=== PATIENT | female | born 1985 | race African-American/Black ===

== ENCOUNTER 2018-01-05 08:49 | Emergency (ER) | payer OTHER ==
[~2018-01-05] VITALS: Ht 170.2 cm; Wt 114.3 kg
[~2018-01-05 08:49] MED LIST: ATIVAN2 MG PO; BENZTROPINE MESY2 MG PO; CLOTRIMAZOLE15 GM TOP; Cleocin TOP; DEPAKOTE ER500 MG PO; DOC Q LACE PO; GEODON80 MG PO; KLONOPIN1 MG PO; RISPERDAL2 MG PO; TRINESSA PO
--- NOTE | 2018-01-05 08:56 | Emergency Room Report ---
History of Present Illness General Chief Complaint: To Be Triaged Source: Patient, Friend Present Illness HPI 32-year-old female presents with caregiver with left-sided chest pain and palpitations since this morning. Caregiver states patient complained of chest pain and she put her hand on her chest and felt the heart beating. Pain worse with movement, palpation. No recent URI symptoms. Pain not improved with sitting forward/laying down. No recent surgery, immobilization. Patient still complaining of chest pain right now, however mostly concerning is that she feels her heart beating fast. Denies associated shortness of breath, nausea, vomiting. History of developmental delay, psychoses, anxiety, hypertension due to renal disease. No history of diabetes or heart attack or CAD known. On oral control. Allergies: Coded Allergies: PENICILLINS (Verified Allergy, Intermediate, SNEEZING, 11/09/12) Patient History Past Medical History: other - See history of present illness Past Surgical History: none Pertinent Family History: none Social History: Denies: smoking, alcohol use, drug use Now: No Immunizations: UTD Reviewed Nursing Documentation: PMH: Agreed, PSxH: Agreed Review of Systems All Other Systems: negative except mentioned in HPI Physical Exam Sp02 EP Interpretation: reviewed, normal General Appearance: normal inspection, well appearing, no apparent distress, alert, GCS 15, non-toxic Head: normocephalic, atraumatic Eyes: bilateral eye PERRL, bilateral eye EOMI ENT: normal ENT inspection, hearing grossly normal, normal pharynx, no angioedema, normal voice, TMs + canals normal, uvula midline, moist mucus membranes Neck: normal inspection, full range of motion, supple, thyroid normal, no meningismus, no bony tend Respiratory: normal inspection, lungs clear, normal breath sounds, no rhonchi, no respiratory distress, no retraction, no accessory muscle use, no wheezing, speaking full sentences Cardiovascular #1: regular rate, rhythm, no edema, no JVD, normal capillary refill Gastrointestinal: normal inspection, normal bowel sounds, non tender, soft, no mass, no peritonitis, non-distended, no guarding, no hernia, no pulsatile mass Genitourinary: no CVA tenderness Musculoskeletal: normal inspection, back normal, normal range of motion, no calf tenderness, pelvis stable, Govind's Sign negative Neurologic: normal inspection, alert, oriented x3, responsive, corporate sales trainer III-XII nml as tested, motor strength/tone normal, cerebellar normal, normal gait, speech normal Psychiatric: normal inspection, judgement/insight normal, mood/affect normal, no suicidal/homicidal ideation, no delusions Skin: normal inspection, normal color, no rash Lymphatic: normal inspection, no adenopathy Medical Decision Making Diagnostic Impression: Primary Impression: Palpitations ER Course Differential includes ACS, PE, MSK pain, palpitations,arrhythmia ECG is nonischemic, QTC is normal. No WPW. No right heart strain or S1Q3T3 pattern Patient is on control however, low suspicion for PE given not tachycardic , not hypoxic, normal vital signs, no right heart strain on EKG no recent immobilization or surgery. I doubt pericarditis given normal EKG, no change with sitting up or laying down , no audible murmur or pericardial rub on exam, no recent URI symptoms. Pain is likely musculoskeletal given very reproducible, worse with movement. Pain improved with NSAIDs Reassured patient and caregiver ER course: Patient has remained stable during ED stay. Disposition: Patient is to be discharged to home. Patient is instructed to follow up with their primary care doctor within 5 days. Strict return precautions discussed with patient such as fever, chills, worsening/severe pain, nausea, vomiting, which may indicate severe illness. Patient verbalizes understanding and agrees with plan. Please note that this Emergency Department Report was dictated using [employer] Jobsdeputy director of finance technology software, occasionally this can lead to erroneous entry secondary to interpretation by the dictation equipment EKG Diagnostic Results Rate: normal Rhythm: NSR ST Segments: no acute changes ASA given to the pt in ED: No Status: improved Disposition: HOME, SELF-CARE SHEILA HAYS M.D. Jan 05, 2018 08:56
[2018-01-05 09:03] VITALS: BP 122/77
--- NOTE | 2018-01-10 18:56 | Cardiology Report ---
APPROVED REPORT EKG Measurement Heart [id number] Normal sinus rhythm Low voltage QRS Nonspecific ST abnormality Abnormal ECG
== END 2018-01-05 09:41 | disposition home or self-care (01) ==
LOC: EMR 09:15
DX: R00.2 Palpitations (principal); R07.9 Chest pain, unspecified; Z88.0 Allergy status to penicillin
CPT/HCPCS: 93005; 99283

== ENCOUNTER 2019-01-24 12:59 | Emergency (ER) | payer OTHER ==
[~2019-01-24] VITALS: Ht 170.2 cm; Wt 111.1 kg
[2019-01-24] MEDS ORDERED: DOCUSATE SODIU100 MG ORAL (13:10)
[2019-01-24] MEDS ORDERED: OLANZAPINE20 MG ORAL (13:10)
--- NOTE | 2019-01-24 13:40 | NUR ---
ED Nurse Note: PT WALKED IN TO ER TODAY FROM [facility] ACCOMPANIED BY FACILITY STAFF. PT AOX3 - NOT ORIENTED TO TIME BUT ORIENTED TO SELF, PLACE, AND SITUATION WHICH IS BASELINE PER FACILITY STAFF. PT C/O 2 PAINFUL SORES ON LIPS THAT FORMED X 5 DAYS AGO, PAIN 10/10. PT PRESENTS WITH ONE SORE TO LEFT CORNER OF MOUTH AND ONE SORE TO RIGHT SIDE OF UPPER LIP. FACILITY STAFF STATES THEY STARTED ABREVA X YESTERDAY.
[2019-01-24 13:43] VITALS: BP 116/76
--- NOTE | 2019-01-24 14:11 | Emergency Room Report ---
History of Present Illness General Chief Complaint: General Complaint Source: Patient Present Illness HPI 33 YO Female presents to the emergency department complaining of 10 out of 10 in severity tender lesions to the outer lip 3 days. Patient is recovering from recent upper respiratory illness denies fevers or chills denies history of herpes denies history of immunocompromise. Pt. denies fevers, chills or swollen tender lymph nodes. Denies lesions/rashes elsewhere on the body. Denies new medications or body washes or creams. Denies swelling of the lips, tongue , throat or airway. Denies wheezing, or shortness of breath. Denies recent travel, recent illness or ill contacts. denies blisters, oral lesions, or sloughing of the skin Allergies: Coded Allergies: PENICILLINS (Verified Allergy, Intermediate, SNEEZING, 11/09/12) Patient History Past Medical History: see triage record Past Surgical History: none Pertinent Family History: none Reviewed Nursing Documentation: PMH: Agreed; PSxH: Agreed Nursing Documentation-PMH Hx Hypertension: Yes Review of Systems All Other Systems: negative except mentioned in HPI Physical Exam Vital Signs Date Time Temp Pulse Resp B/P (MAP) Pulse Ox O2 Delivery O2 Flow Rate FiO2 01/24/19 13:05 98.4 100 22 104/71 95 Room Air Sp02 EP Interpretation: reviewed, normal General Appearance: no apparent distress, alert, GCS 15, non-toxic Head: normocephalic, atraumatic Eyes: bilateral eye normal inspection, bilateral eye PERRL ENT: hearing grossly normal, normal voice, TMs + canals normal, uvula midline, moist mucus membranes, other - two scabbed cold sores on the upper outer lip, no blisters or vessicles. no swelling of the lips or tongue. Neck: full range of motion Respiratory: chest non-tender, lungs clear, normal breath sounds, no wheezing, speaking full sentences Cardiovascular #1: regular rate, rhythm Musculoskeletal: back normal, gait/station normal, normal range of motion, non- tender Neurologic: alert, oriented x3, responsive, motor strength/tone normal, sensory intact, speech normal, grossly normal Psychiatric: judgement/insight normal Skin: normal color, no rash, warm/dry, well hydrated Lymphatic: no adenopathy Medical Decision Making PA Attestation Dr. kwon is my supervising Physician whom patient management has been discussed with. Diagnostic Impression: Primary Impression: Cold sore ER Course 33 YO Female presents to the emergency department complaining of 10 out of 10 in severity tender lesions to the outer lip 3 days. Patient is recovering from recent upper respiratory illness denies fevers or chills denies history of herpes denies history of immunocompromise. Pt. denies fevers, chills or swollen tender lymph nodes. Denies lesions/rashes elsewhere on the body. Denies new medications or body washes or creams. Denies swelling of the lips, tongue , throat or airway. Denies wheezing, or shortness of breath. Denies recent travel, recent illness or ill contacts. denies blisters, oral lesions, or sloughing of the skin Ddx considered but are not limited to cellulitis, scabies, shingles, varicella, dermatitis, urticaria, eczema, tinea, viral exanthem, SJS Vital signs: are WNL, pt. is afebrile H&PE are most consistent with viral cold sores ORDERS: none required at this time, the diagnosis is clinical ED INTERVENTIONS: None required at this time. DISCHARGE: At this time pt. is stable for d/c to home. Will provide printed patient care instructions, and any necessary prescriptions. Care plan and follow up instructions have been discussed with the patient prior to discharge. Last Vital Signs Date Time Temp Pulse Resp B/P (MAP) Pulse Ox O2 Delivery O2 Flow Rate FiO2 01/24/19 13:43 92 20 Room Air 01/24/19 13:43 98.2 116/76 98 Disposition: HOME, SELF-CARE Condition: Stable Patient Instructions: Cold Sore, [id number] Additional Instructions: Take medications as directed. Follow up with a Primary Care Provider in 3-5 days, even if your symptoms have resolved. --Please review list of primary care clinics, if you do not already have a primary care provider Return sooner to ED if new symptoms occur, or current symptoms become worse. - Please note that this Emergency Department Report was dictated using [employer] truck driver technology software, occasionally this can lead to erroneous entry secondary to interpretation by the dictation equipment. Rose Oreilly Jan 24, 2019 14:11
[2019-01-24] MEDS ORDERED: ACYCLOVIR400 MG ORAL (14:12)
[2019-01-24] MEDS ORDERED: MUPIROCIN22 GM TOPIC (14:12)
--- NOTE | 2019-01-24 14:21 | NUR ---
ED Nurse Note: PT SITTING PEACEFULLY IN BED IN NAD. AOX3. GUARDIAN AT BEDSIDE. PRESCRIPTIONS AND DISCHARGE PAPERWORK EXPLAINED TO GUARDIAN WHO VERBALIZES UNDERSTANDING. ALL QUESTIONS ANSWERED. PRESCRIPTIONS AND DISCHARGE PAPERWORK GIVEN TO GUARDIAN AND ID WRISTBAND REMOVED FROM PT. PT WALKED OUT OF ER WITH STEADY GAIT AND ALL BELONGINGS ACCOMPANIED BY GUARDIAN.
[2019-01-24 14:22] VITALS: BP 114/82
== END 2019-01-24 14:23 | disposition home or self-care (01) ==
LOC: EMR 13:45
DX: B00.1 Herpesviral vesicular dermatitis (principal); Z88.0 Allergy status to penicillin; I10 Essential (primary) hypertension
CPT/HCPCS: 99282

== ENCOUNTER 2019-02-11 10:03 | Emergency (ER) | payer OTHER ==
[~2019-02-11] VITALS: Ht 170.2 cm; Wt 114.3 kg
[~2019-02-11 10:03] MED LIST changes: +ACYCLOVIR400 MG ORAL; +DOCUSATE SODIU100 MG ORAL; +MUPIROCIN22 GM TOPIC; +OLANZAPINE20 MG ORAL
[2019-02-11 10:09] VITALS: BP 103/75
--- NOTE | 2019-02-11 10:15 | NUR ---
ED Nurse Note: Patient brought in by her caregiver due to rash on the bilateral hand ventral side started this morning. caregiver said she noticed rash on the left feet as well. patient is alert awake ambulatory, breathing even and unlabored.
[2019-02-11] MEDS ORDERED: CALAMINE LOTIO177 ML TP (10:27)
--- NOTE | 2019-02-11 10:29 | Emergency Room Report ---
History of Present Illness General Chief Complaint: Skin Rash/Abscess Source: Patient, Caregiver Present Illness HPI Patient persist with caregiver with reports of rash that has developed on the hands and feet This was noticed earlier today patient also reports that the areas are fairly itchy in nature Denies any fevers or chills denies any chest pain or shortness of breath denies any other oral lesions however patient appears to have been here recently with possible herpetic lesions Denies any other rash in the upper chest or back denies any recent travel Allergies: Coded Allergies: PENICILLINS (Verified Allergy, Intermediate, SNEEZING, 11/09/12) Patient History Past Medical History: see triage record Pertinent Family History: none Last Menstrual Period: Unable to state Now: No Reviewed Nursing Documentation: PMH: Agreed; PSxH: Agreed Nursing Documentation-PMH Past Medical History: No History, Except For Hx Hypertension: Yes Review of Systems All Other Systems: negative except mentioned in HPI Physical Exam Vital Signs Date Time Temp Pulse Resp B/P (MAP) Pulse Ox O2 Delivery O2 Flow Rate FiO2 02/11/19 10:09 98.6 97 18 103/75 95 Room Air Sp02 EP Interpretation: reviewed, normal General Appearance: well appearing, no apparent distress Head: normocephalic, atraumatic Eyes: bilateral eye PERRL, bilateral eye EOMI ENT: normal pharynx Neck: supple Respiratory: lungs clear, no retraction, no accessory muscle use Cardiovascular #1: regular rate, rhythm Gastrointestinal: non tender, soft Musculoskeletal: normal inspection Neurologic: alert, oriented x3 Skin: other - Erythematous circular rash involving the palms of both hands and palmar aspect of both feet no obvious target cell appearance no blister formation no sloughing of the skin Lymphatic: no adenopathy Medical Decision Making Diagnostic Impression: Primary Impression: Rash and other nonspecific skin eruption Additional Impression: hand foot mouth disease ER Course Patient's clinical exam and history is consistent with knbm-gwmg-sas-mouth disease Patient does not appear septic or toxic and will have initial conservative outpatient trial Last Vital Signs Date Time Temp Pulse Resp B/P (MAP) Pulse Ox O2 Delivery O2 Flow Rate FiO2 02/11/19 10:09 98.6 97 18 103/75 95 Room Air Status: unchanged Disposition: HOME, SELF-CARE Condition: Stable Scripts Calamine/Zinc Oxide (CALAMINE LOTION*) 177 Ml Suspension 1 APPLIC TP BID for 5 Days, ML 0 Refills Prov: Israel Benites DO 02/11/19 Patient Instructions: Rash, Hand, Foot, and Mouth Disease, Pediatric, Easy-to- Read Additional Instructions: Patient is provided with the discharge instructions notified to follow up with primary doctor in the next 2-3 days otherwise return to the er with any worsening symptoms. Please note that this report is being documented using [employer] technology. This can lead to erroneous entry secondary to incorrect interpretation by the dictating instrument. Israel Benites DO Feb 11, 2019 10:29
[2019-02-11 10:45] VITALS: BP 103/75
--- NOTE | 2019-02-11 10:45 | NUR ---
ER DISCHARGE NOTE: Patient is cleared to be discharged per ERMD, pt is aox4, on room air, with stable vital signs. pt was given dc and prescription instructions, pt was able to verbalize understanding, pt id band removed without complications. pt is able to ambulate with steady gait escorted by her caregiver. pt took all belongings.
== END 2019-02-11 10:45 | disposition home or self-care (01) ==
LOC: EMR 10:40
DX: R21 Rash and other nonspecific skin eruption (principal); B08.4 Enteroviral vesicular stomatitis with exanthem; Z88.0 Allergy status to penicillin; I10 Essential (primary) hypertension
CPT/HCPCS: 99282

== ENCOUNTER 2019-03-26 08:39 | Emergency (ER) | payer OTHER ==
[~2019-03-26] VITALS: Ht 170.2 cm; Wt 108.0 kg
[~2019-03-26 08:39] MED LIST changes: +CALAMINE LOTIO177 ML TP
[2019-03-26 08:58] VITALS: BP 131/89
--- NOTE | 2019-03-26 08:59 | NUR ---
ED Nurse Note: pt from a residential facility fell off of her bed last night c/o rt shoulder pain . Facility staff at bedside. pt awaiting x-rays.
--- NOTE | 2019-03-26 09:03 | NUR ---
ED Nurse Note: pt down to imaging
--- NOTE | 2019-03-26 09:32 | Diagnostic Imaging Report ---
Indication: left shoulder pain Findings: 3 views of the left shoulder were obtained. Alignment of the left shoulder is normal. No acute fracture is identified. Soft tissues are unremarkable. Impression: No acute injury
[2019-03-26] MEDS ORDERED: TYLENOL EXTRA500 MG ORAL (09:33)
[2019-03-26 09:52] VITALS: BP 131/89
--- NOTE | 2019-03-26 09:54 | NUR ---
ED Nurse Note: Pt cleared by health care Provider for discharge. DC instructions/prescription was given and explained to pt and verbalized understanding of teachings. All medical deviecs such as ID band removed. Pt is AAO x4, ambulatory with the staff from the facility she came from and left with all personal belongings.
--- NOTE | 2019-03-26 09:56 | Emergency Room Report ---
History of Present Illness General Chief Complaint: Pain Source: Patient Present Illness HPI 33-year-old female presents ED for evaluation. Brought in by animal caretaker for left shoulder pain. States she fell and landed on her left shoulder last night. Denies hitting her head or any other injuries. Notes pain to her left shoulder only. Pain is dull, 6 out of 10, nonradiating. No other aggravating relieving factors. Denies any other associated symptoms Allergies: Coded Allergies: PENICILLINS (Verified Allergy, Intermediate, SNEEZING, 03/26/19) Patient History Past Medical History: HTN, psych hx Past Surgical History: none Pertinent Family History: none Social History: Denies: smoking, alcohol use, drug use Last Menstrual Period: February 2019 Now: No Immunizations: UTD Reviewed Nursing Documentation: PMH: Agreed; PSxH: Agreed Nursing Documentation-PMH Past Medical History: No History, Except For Hx Hypertension: Yes Review of Systems All Other Systems: negative except mentioned in HPI Physical Exam Vital Signs Date Time Temp Pulse Resp B/P (MAP) Pulse Ox O2 Delivery O2 Flow Rate FiO2 03/26/19 08:43 98.1 95 16 131/89 (103) 97 Room Air Sp02 EP Interpretation: reviewed, normal General Appearance: no apparent distress, alert, GCS 15, non-toxic Head: normocephalic, atraumatic Eyes: bilateral eye normal inspection, bilateral eye PERRL ENT: hearing grossly normal, normal pharynx, no angioedema, normal voice Neck: full range of motion, supple/symm/no masses Respiratory: chest non-tender, lungs clear, normal breath sounds, speaking full sentences Cardiovascular #1: regular rate, rhythm, no edema Cardiovascular #2: 2+ carotid (R), 2+ carotid (L), 2+ radial (R), 2+ radial (L) , 2+ dorsalis pedis (R), 2+ dorsalis pedis (L) Gastrointestinal: normal bowel sounds, non tender, soft, non-distended, no guarding, no rebound Rectal: deferred Genitourinary: normal inspection, no CVA tenderness Musculoskeletal: back normal, gait/station normal, normal range of motion, tender - L shoulder Neurologic: alert, oriented x3, responsive, motor strength/tone normal, sensory intact, speech normal Psychiatric: judgement/insight normal, memory normal, mood/affect normal, no suicidal/homicidal ideation Reflexes: 3+ bicep (R), 3+ bicep (L), 3+ tricep (R), 3+ tricep (L), 3+ knee (R) , 3+ knee (L) Skin: normal color, no rash, warm/dry, well hydrated Lymphatic: no adenopathy Medical Decision Making Diagnostic Impression: Primary Impression: Shoulder contusion Qualified Codes: S40.012A - Contusion of left shoulder, initial encounter ER Course Hospital Course 33-year-old M presents to ED complaining of L shoulder pain s/p fall Differential diagnoses include: Fracture, dislocation, sprain, contusion Clinical course Patient placed on stretcher. After initial history and physical, I ordered xrays of L shoulder Xrays prelim read shows no acute fracture/dislocation. Because findings with patient and animal caretaker. Ice, modified activity. Safe for discharge for close outpatient follow-up. I will provide Ortho referrals Diagnosis - shoulder contusion Stable and discharged to home with prescription for tylenol. apply ice, keep elevated. weight bear as tolerated. Followup with PMD/ortho. Return to ED if symptoms recur or worsen Other X-Ray Diagnostic Results Other X-Ray Diagnostic Results : X-Ray ordered: L shoulder # of Views/Limited Vs Complete: 3 View Indication: Pain EP Interpretation: Yes Interpretation: no dislocation, no soft tissue swelling, no fractures Impression: No acute disease Electronically Signed by: Electronically signed by Kalpesh Nielsen MD Last Vital Signs Date Time Temp Pulse Resp B/P (MAP) Pulse Ox O2 Delivery O2 Flow Rate FiO2 03/26/19 08:58 98.1 16 131/89 97 Room Air 03/26/19 08:43 95 Status: improved Disposition: HOME, SELF-CARE Condition: Stable Scripts Acetaminophen* (TYLENOL EXTRA STRENGTH*) 500 Mg Tablet 500 MG ORAL Q8H PRN for Prn Headache/Temp > 101, #30 TAB 0 Refills Prov: Kalpesh Nielsen MD 03/26/19 Referrals: NON PHYSICIAN (PCP) [facility] Open 24 hour /7 days a week by Appointment Only [address] [facility] [address] [facility] [address] Patient Instructions: Shoulder Pain, [id number] Kalpesh Nielsen MD Mar 26, 2019 09:55
== END 2019-03-26 09:55 | disposition home or self-care (01) ==
LOC: EMR 08:52
DX: S40.012A Contusion of left shoulder, initial encounter (principal); W19.XXXA Unspecified fall, initial encounter; Y92.9 Unspecified place or not applicable; Z88.0 Allergy status to penicillin; I10 Essential (primary) hypertension
CPT/HCPCS: 99283

== ENCOUNTER 2020-11-21 09:27 | Inpatient (IN) | payer MEDICARE, OTHER ==
[2020-11-21] VITALS (11 sets, daily range): BP systolic 130–172; BP diastolic 55–92
[~2020-11-21] VITALS: Ht 172.7 cm; Wt 72.6 kg
[~2020-11-21 09:27] MED LIST changes: +TYLENOL EXTRA500 MG ORAL
[2020-11-21] MEDS ORDERED: LORazepam Inj 2mg/ml 1ml IV ONE ×3 (09:30→11:00)
--- NOTE | 2020-11-21 09:33 | Emergency Room Report ---
History of Present Illness General Chief Complaint: Seizure Source: EMS Present Illness HPI Disclaimer: Please note that this report is being documented using DRAGON technology. This can lead to erroneous entry secondary to incorrect interpretation by the dictating instrument. HPI: 35-year-old female history of seizure disorder and methamphetamine use presents by EMS from senior care after witnessed generalized tonic-clonic seizure. He had reports of witnessed generalized tonic-clonic seizure lasting several minutes while the patient was in bed. No head trauma reported. Patient arrives nonverbal with eyes deviated to the right and rhythmic beating of the right upper extremity. Cannot obtain any information from patient. No further information by EMS. Review of senior care documentation shows she takes Keppra and lorazepam. PMH: Seizure disorder, methamphetamine abuse PSH: Unable to obtain from patient Allergies: Amoxicillin and penicillins listed in medical chart Social Hx: Amphetamine use in medical chart Allergies: Coded Allergies: PENICILLINS (Verified Allergy, Intermediate, SNEEZING, 03/26/19) AMOXICILLIN (Unverified Allergy, Unknown, 11/21/20) Nursing Documentation-PMH Hx Hypertension: Yes Review of Systems All Other Systems: limited - Unable to obtain from patient Physical Exam General: Nonverbal. Protecting airway HEENT: NC/AT. Eyes deviated to the right with rhythmic beating. Cardiovascular: RRR. S1 and S2 normal. No murmur appreciated Resp: Normal work of breathing. No cough, wheezing or crackles appreciated Abdomen: Abdomen is soft, nondistended. Nontender Skin: Intact. No abrasions, laceration or rash over the exposed skin MSK: Normal tone and bulk. No obvious deformity. There is no drift in the upper or lower extremities bilaterally. Neuro: Postictal. Nonverbal response. Rhythmic beating of the right upper extremity. Eye deviation to the right. Symmetrical facial expressions. Procedures Critical Care Time Critical Care Time Total critical care time: Approximately 45 minutes Due to a high probability of clinically significant, life threatening deterioration, the patient required the highest level of preparedness to intervene emergently and I personally spent this critical care time directly and personally managing the patient. This critical care time included obtaining a history, examining the patient, pulse oximetry, ordering and reviewing studies, ordering treatments, evaluating response to treatment and updating management plan as needed, frequent reassessment and discussion with other providers as well as arranging for ultimate disposition. This critical to care time was performed to assess and manage the high probability of life-threatening deterioration that could result in multiorgan failure. This critical care time is separate from the separately billable procedures and treating other patients. Medical Decision Making Diagnostic Impression: Primary Impression: Seizure disorder Additional Impressions: Status epilepticus SVT (supraventricular tachycardia) ER Course 35-year-old female presents after witnessed seizure at nursing facility. Arrives nonverbal with eye deviation to the right. Glucose on arrival is 213. Stat CT head initiated along with broad labs and Ativan given. Patient loaded with Keppra. No obvious large bleed seen on CT. Patient had several brief generalized tonic-clonic seizures and apparent focal seizures on the right side. Dilantin given in addition to Ativan. EKG shows a narrow complex regular tachycardia in the 150s consistent with SVT. 2 doses of 12 mg adenosine given with no effect. Cardizem then given which improved heart rate. Patient admitted to SDU under her PMD, Dr. Avitia Laboratory Tests Test 11/21/20 09:35 11/21/20 11:50 White Blood Count 20.9 K/UL (4.8-10.8) H Red Blood Count 4.71 M/UL (4.20-5.40) Hemoglobin 13.5 G/DL (12.0-16.0) Hematocrit 42.9 % (37.0-47.0) Mean Corpuscular Volume 91 FL (80-99) Mean Corpuscular Hemoglobin 28.7 PG (27.0-31.0) Mean Corpuscular Hemoglobin Concent 31.6 G/DL (32.0-36.0) L Red Cell Distribution Width 13.7 % (11.6-14.8) Platelet Count 291 K/UL (150-450) Mean Platelet Volume 6.6 FL (6.5-10.1) Neutrophils (%) (Auto) % (45.0-75.0) Lymphocytes (%) (Auto) % (20.0-45.0) Monocytes (%) (Auto) % (1.0-10.0) Eosinophils (%) (Auto) % (0.0-3.0) Basophils (%) (Auto) % (0.0-2.0) Differential Total Cells Counted 100 Neutrophils % (Manual) 83 % (45-75) H Lymphocytes % (Manual) 9 % (20-45) L Monocytes % (Manual) 8 % (1-10) Eosinophils % (Manual) 0 % (0-3) Basophils % (Manual) 0 % (0-2) Band Neutrophils 0 % (0-8) Platelet Estimate Adequate Platelet Morphology Normal Red Blood Cell Morphology Hypochromasia 1+ Prothrombin Time 11.0 SEC (9.30-11.50) Prothrombin Time INR 1.0 (0.9-1.1) Activated Partial Thromboplast Time 27 SEC (23-33) Sodium Level 134 MMOL/L (136-145) L Potassium Level 4.5 MMOL/L (3.5-5.1) Chloride Level 96 MMOL/L (98-107) L Carbon Dioxide Level 23 MMOL/L (21-32) Anion Gap 15 mmol/L (5-15) Blood Urea Nitrogen 10 mg/dL (7-18) Creatinine 1.3 MG/DL (0.55-1.30) Estimated Glomerular Filtration Rate 56.2 mL/min (>60) Glucose Level 238 MG/DL (74-106) H Calcium Level 8.9 MG/DL (8.5-10.1) Phosphorus Level 3.2 MG/DL (2.5-4.9) Magnesium Level 1.5 MG/DL (1.8-2.4) L Total Bilirubin 0.6 MG/DL (0.2-1.0) Aspartate Amino Transferase (AST) 62 U/L (15-37) H Alanine Aminotransferase (ALT) 35 U/L (12-78) Alkaline Phosphatase 88 U/L (46-116) Troponin I 0.435 ng/mL (0.000-0.056) Total Protein 8.2 G/DL (6.4-8.2) Albumin 3.5 G/DL (3.4-5.0) Globulin 4.7 g/dL Albumin/Globulin Ratio 0.7 (1.0-2.7) L Acetaminophen Level < 2 MCG/ML (10-30) L Serum Alcohol < 3 mg/dL Urine Color Pale yellow Urine Appearance Clear Urine pH 7 (4.5-8.0) Urine Specific [place] 1.005 (1.005-1.035) Urine Protein 2+ (NEGATIVE) H Urine Glucose (UA) Negative (NEGATIVE) Urine Ketones Negative (NEGATIVE) Urine Blood 4+ (NEGATIVE) H Urine Nitrite Negative (NEGATIVE) Urine Bilirubin Negative (NEGATIVE) Urine Urobilinogen Normal MG/DL (0.0-1.0) Urine Leukocyte Esterase Negative (NEGATIVE) Urine RBC 2-4 /HPF (0 - 2) H Urine WBC 0-2 /HPF (0 - 2) Urine Squamous Epithelial Cells Occasional /LPF Urine Bacteria Occasional /HPF (NONE) Urine HCG, Qualitative Negative (NEGATIVE) Urine Opiates Screen Negative (NEGATIVE) Urine Barbiturates Screen Negative (NEGATIVE) Phencyclidine (PCP) Screen Negative (NEGATIVE) Urine Amphetamines Screen Negative (NEGATIVE) Urine Benzodiazepines Screen Negative (NEGATIVE) Urine Cocaine Screen Negative (NEGATIVE) Urine Marijuana (THC) Screen Negative (NEGATIVE) EKG Diagnostic Results Troponin ordered: Yes When was troponin ordered?: Nov 21, 2020 EKG Time: 10:05 Rate: tachycardiac Other Impression Narrow complex regular tachycardia to 150s consistent with SVT Rhythm Strip Diag. Results Rhythm Strip Time: 10:05 EP Interpretation: yes Rate: 150s Rhythm: other - SVT Disposition: ADMITTED INPATIENT Condition: Critical Donn Felton MD Nov 21, 2020 09:33
[2020-11-21] MEDS ORDERED: levETIRAcetam 1,000mg/NS100ml 100 ML IVPB ONE (09:45)
[2020-11-21 09:54] LABS: HEMATOCRIT 42.9 % (37.0-47.0); HEMOGLOBIN 13.5 G/DL (12.0-16.0); MEAN CORPUSCULAR VOLUME 91 FL (80-99); PLATELET COUNT 291 K/UL (150-450); RED BLOOD COUNT 4.71 M/UL (4.20-5.40); RED CELL DISTRIBUTION WIDTH 13.7 % (11.6-14.8); WHITE BLOOD COUNT 20.9 K/UL (4.8-10.8)
[2020-11-21 10:13] LABS: ANION GAP 15 mmol/L (5-15); BLOOD UREA NITROGEN 10 mg/dL (7-18); CALCIUM 8.9 MG/DL (8.5-10.1); CARBON DIOXIDE 23 MMOL/L (21-32); CHLORIDE 96 MMOL/L (98-107); CREATININE 1.3 MG/DL (0.55-1.30); POTASSIUM 4.5 MMOL/L (3.5-5.1); SODIUM 134 MMOL/L (136-145)
[2020-11-21] MEDS ORDERED: Adenosine 6mg/2ml Inj ONE (10:14)
[2020-11-21] MEDS ORDERED: Phenytoin 1,000 MG in NS 275 ML IV ONE (10:15)
[2020-11-21] MEDS ORDERED: Adenosine 6mg/2ml Inj IVP ONE ×2 (10:15→11:00)
[2020-11-21 10:23] LABS: ALANINE AMINOTRANSFERASE 35 U/L (12-78); ALBUMIN 3.5 G/DL (3.4-5.0); ALBUMIN/GLOBULIN RATIO 0.7 (1.0-2.7); ALKALINE PHOSPHATASE 88 U/L (46-116); ASPARTATE AMINO TRANSFERASE 62 U/L (15-37); BILIRUBIN,TOTAL 0.6 MG/DL (0.2-1.0)
[2020-11-21] MEDS ORDERED: dilTIAZem HCl 25mg/5ml Inj IVP ONE (10:30)
[2020-11-21 10:37] LABS: PHOSPHORUS 3.2 MG/DL (2.5-4.9)
--- NOTE | 2020-11-21 10:43 | Diagnostic Imaging Report ---
Indications: Seizure Technique: Spiral acquisitions obtained through the brain. Angled axial and coronal 5 x 5 mm slices were reconstructed. Total dose length product 2197 mGycm. CTDI vol(s) 53 x 2 mGy. Dose reduction achieved using automated exposure control Comparison: None. Findings: No acute intracranial hemorrhage or edema, mass effect, nor midline shift. Normal [place]-white differentiation. There is abnormal configuration of the posterior lateral ventricles. These appear more normal anteriorly. Size of the ventricles and extra axial CSF spaces. Visualized orbits and sinuses are unremarkable. The mastoids are clear. The calvarium is intact. 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 is accredited by the [employer] and the scans are performed using protocols designed to limit radiation exposure to as low as reasonably achievable to attain images of sufficient resolution adequate for diagnostic evaluation.
[2020-11-21 11:58] LABS: APPEARANCE,URINE CLEAR; BILIRUBIN, URINE NEGATIVE (NEGATIVE); COLOR,URINE PALE YELLOW; GLUCOSE, URINE (UA) NEGATIVE (NEGATIVE); KETONES,URINE NEGATIVE (NEGATIVE); LEUKOCYTE ESTERASE ,URINE NEGATIVE (NEGATIVE); NITRITE,URINE NEGATIVE (NEGATIVE); PH,URINE 7 (4.5-8.0); PROTEIN,URINE 2+ (NEGATIVE); UROBILINOGEN,URINE NORMAL MG/DL (0.0-1.0)
--- NOTE | 2020-11-21 12:38 | Cardiac Electrophysiology PN ---
Subjective Subjective [id number] Objective Last 24 Hour Vital Signs Date Time Temp Pulse Resp B/P (MAP) Pulse Ox O2 Delivery O2 Flow Rate FiO2 11/21/20 12:00 97.0 122 18 164/86 97 Room Air 11/21/20 11:30 97.0 125 20 154/92 97 11/21/20 11:15 98.0 132 17 172/74 96 Room Air 11/21/20 11:00 97.7 129 20 160/72 97 Room Air 11/21/20 10:53 155 32 175/89 100 11/21/20 10:53 160 11/21/20 10:45 97.0 152 22 132/69 99 Room Air 11/21/20 10:35 151 138/55 11/21/20 10:30 97.7 149 22 138/55 99 Room Air 11/21/20 10:19 161 11/21/20 10:15 97.0 156 22 130/72 98 Room Air 11/21/20 10:00 141 18 171/82 98 Room Air 11/21/20 09:45 140 30 Room Air 11/21/20 09:45 145 24 96 11/21/20 09:39 149 21 100 11/21/20 09:26 98.8 93 16 163/88 (113) 95 Room Air Laboratory Tests Test 11/21/20 09:35 11/21/20 11:50 White Blood Count 20.9 K/UL (4.8-10.8) H Red Blood Count 4.71 M/UL (4.20-5.40) Hemoglobin 13.5 G/DL (12.0-16.0) Hematocrit 42.9 % (37.0-47.0) Mean Corpuscular Volume 91 FL (80-99) Mean Corpuscular Hemoglobin 28.7 PG (27.0-31.0) Mean Corpuscular Hemoglobin Concent 31.6 G/DL (32.0-36.0) L Red Cell Distribution Width 13.7 % (11.6-14.8) Platelet Count 291 K/UL (150-450) Mean Platelet Volume 6.6 FL (6.5-10.1) Neutrophils (%) (Auto) % (45.0-75.0) Lymphocytes (%) (Auto) % (20.0-45.0) Monocytes (%) (Auto) % (1.0-10.0) Eosinophils (%) (Auto) % (0.0-3.0) Basophils (%) (Auto) % (0.0-2.0) Differential Total Cells Counted 100 Neutrophils % (Manual) 83 % (45-75) H Lymphocytes % (Manual) 9 % (20-45) L Monocytes % (Manual) 8 % (1-10) Eosinophils % (Manual) 0 % (0-3) Basophils % (Manual) 0 % (0-2) Band Neutrophils 0 % (0-8) Platelet Estimate Adequate Platelet Morphology Normal Red Blood Cell Morphology Hypochromasia 1+ Prothrombin Time 11.0 SEC (9.30-11.50) Prothromb Time International Ratio 1.0 (0.9-1.1) Activated Partial Thromboplast Time 27 SEC (23-33) Sodium Level 134 MMOL/L (136-145) L Potassium Level 4.5 MMOL/L (3.5-5.1) Chloride Level 96 MMOL/L (98-107) L Carbon Dioxide Level 23 MMOL/L (21-32) Anion Gap 15 mmol/L (5-15) Blood Urea Nitrogen 10 mg/dL (7-18) Creatinine 1.3 MG/DL (0.55-1.30) Estimat Glomerular Filtration Rate 56.2 mL/min (>60) Glucose Level 238 MG/DL (74-106) H Calcium Level 8.9 MG/DL (8.5-10.1) Phosphorus Level 3.2 MG/DL (2.5-4.9) Magnesium Level 1.5 MG/DL (1.8-2.4) L Total Bilirubin 0.6 MG/DL (0.2-1.0) Aspartate Amino Transf (AST/SGOT) 62 U/L (15-37) H Alanine Aminotransferase (ALT/SGPT) 35 U/L (12-78) Alkaline Phosphatase 88 U/L (46-116) Troponin I 0.435 ng/mL (0.000-0.056) Total Protein 8.2 G/DL (6.4-8.2) Albumin 3.5 G/DL (3.4-5.0) Globulin 4.7 g/dL Albumin/Globulin Ratio 0.7 (1.0-2.7) L Acetaminophen Level < 2 MCG/ML (10-30) L Serum Alcohol < 3 mg/dL Urine Color Pale yellow Urine Appearance Clear Urine pH 7 (4.5-8.0) Urine Specific [place] 1.005 (1.005-1.035) Urine Protein 2+ (NEGATIVE) H Urine Glucose (UA) Negative (NEGATIVE) Urine Ketones Negative (NEGATIVE) Urine Blood 4+ (NEGATIVE) H Urine Nitrite Negative (NEGATIVE) Urine Bilirubin Negative (NEGATIVE) Urine Urobilinogen Normal MG/DL (0.0-1.0) Urine Leukocyte Esterase Negative (NEGATIVE) Urine RBC 2-4 /HPF (0 - 2) H Urine WBC 0-2 /HPF (0 - 2) Urine Squamous Epithelial Cells Occasional /LPF Urine Bacteria Occasional /HPF (NONE) Urine HCG, Qualitative Negative (NEGATIVE) Urine Opiates Screen Negative (NEGATIVE) Urine Barbiturates Screen Negative (NEGATIVE) Phencyclidine (PCP) Screen Negative (NEGATIVE) Urine Amphetamines Screen Negative (NEGATIVE) Urine Benzodiazepines Screen Negative (NEGATIVE) Urine Cocaine Screen Negative (NEGATIVE) Urine Marijuana (THC) Screen Negative (NEGATIVE) Carl Weber MD Nov 21, 2020 12:38
--- NOTE | 2020-11-21 13:41 | NUR ---
ED note Report given to Ethan MALDONADO
--- NOTE | 2020-11-21 13:46 | Diagnostic Imaging Report ---
Procedure: XRAY Chest 1v Reason for study: Shortness of breath. Comparison films: None. FINDINGS: Overlying patch noted over the cardiac shadow and left lung base. Vascularity is normal. The lung flaherty are clear bilaterally. Cardiac and mediastinal silhouette are within normal limits. CP angles are sharp. The bony thorax appear unremarkable. IMPRESSION: NO ACUTE CARDIOPULMONARY DISEASE.
[2020-11-21] MEDS ORDERED: HEPARIN SO5000 UNIT2 SUBQ (14:11)
[2020-11-21] MEDS ORDERED: LEVETIRACETAM500 MG ORAL (14:11)
[2020-11-21] MEDS ORDERED: LORAZEPAM2 MG/1 M1 IV (14:11)
--- NOTE | 2020-11-21 14:47 | Consultation ---
Consult Note Consult Note Neurology Consultation Date of Consultation: 11/21/2020 Soy MD: Dr. solano Reason For Referral; Seizure HPI: this is a 35-year-old AA female history of seizure disorder and methamphetamine use presents by EMS from shelter after witnessed generalized tonic-clonic seizure. He had reports of witnessed generalized angelica c-clonic seizure lasting several minutes while the patient was in bed. No head trauma reported. Cannot obtain any information from patient. Review of shelter documentation shows she takes Keppra and lorazepam. She is seen in the room brought in by ED staff, had a seizure in ED, she was transferred from [facility],, we will reviewe records and continue current treatment with seizure meds for now. PMH: Seizure disorder, methamphetamine abuse, schizophrenia PSH: Unable to obtain from patient Allergies: Amoxicillin and penicillins listed in medical chart Social Hx: Amphetamine use in medical chart ROS unable to assess Vitals Reviewed General: Patient is lying down Neuro: Alert to self oriented to self does not rememebr what happened Comprehension intact. Language parameters intact slow to respond. Crainial nervies II-XI were tested. PEERLA No nystagmus. Tongue is midline. Facial is symmetric. hearing intact Motor: No invountary movements, bilateral Upper extremities 4/5 Lower ex tremities 4/5. Sensation: intact Gait not tested Postictal LAB DATA: Reviewed Assessment and Rec's 1. Seizure, she is in post ictal phase responds slowly to questions --> continue keppra and ativan, CT Head reviewed --> will review records from [facility], further rec's to follow 2. Mehtamphetamine abuse 3. Obesty 4. Schizophrenia Lia Coburn NP Nov 21, 2020 14:47
--- NOTE | 2020-11-21 14:56 | Consultation ---
Consult Note Consult Note DATE OF CONSULTATION: 11/21/2020 CONSULTING PHYSICIAN: Ry Garrison MD. ATTENDING PHYSICIAN: Dr. Avitia REASON FOR CONSULTATION: tachycardia HISTORY OF PRESENT ILLNESS: This is a 35-year-old female with history of seizure disorder and methamphetamine use, who presented by EMS from long term after witnessed generalized tonic-clonic seizure. She was reported to be seizing several minutes while in bed. No head trauma was reported. Patient arrived nonverbal with eyes deviated to the right and rhythmic beating of the right upper extremity. Further history is unable to be obtained from the patient and much of the information was obtained from the ER note and her EMR. Her glucose on arrival was 213. Stat CT of head was negative for acute intracranial bleed or mass-effect. Chest x-ray did not show acute cardiopulmonary disease. Patient continues show multiple tonic-clonic seizures and apparent focal seizures on the right side. Dilantin was given in addition to Ativan. EKG showed a narrow complex regular tachycardia consistent with SVT. 2 doses of 12 mg adenosine were given with no effect. Cardizem was then given which improved her heart rate. Patient was seen in the ED, waiting for admissi on. PAST MEDICAL HISTORY: Seizure disorder, methamphetamine use MEDICATIONS: Acetaminophen, benztropine, clonazepam, clotrimazole, divalproex, docusate, heparin, levetiracetam, lorazepam, mupirocin, olanzapine, risperidone, ziprasidone ALLERGIES: Amoxicillin, penicillin FAMILY HISTORY: Unreliable PERSONAL/SOCIAL HISTORY: Unreliable REVIEW OF SYSTEMS: Unreliable PHYSICAL EXAMINATION: VITAL SIGNS: Blood pressure 164/86, heart rate is 122, respiratory rate 18, weight 73 kg, height 172 cm. HEENT: Head exam reveals that the head is normocephalic, atraumatic without deformity or unusual swelling. Pupils are PERRLA. CHEST AND LUNGS: Reveals clear, normal, symmetrical breath sounds with no adventitious sounds. CARDIOVASCULAR: Reveals normal S1, S2 without murmurs, rubs, or clicks. ABDOMEN: Soft with no tenderness or organomegaly. RECTAL: Deferred. MUSCULOSKELETAL: There is no tenderness to palpation. Range of motion is normal. NEUROLOGICAL: Alert and oriented x3 , nonfocal LABORATORY DATA: Laboratory testing shows WBC 20.9, otherwise unremarkable Chemistries show sodium 134, chloride 96, glucose 238, magnesium 1.5, troponin 0.435 Assessment/Plan 1. Hypertension - cardio following 2. Tachycardia -cardio following - will order venous duplex US to r/o DVT - check D-dimer 3. Leukocytosis - ID following 4. Elevated troponin -Serial troponin -Cardio following 5. Risk for aspiration secondary to seizure -Monitor for aspiration risk due to altered mental status - fu CXR if indicated -On empiric antibiotics 6. Monitor for hypoxemia The care for this patient was discussed with my supervising physician. Time spent for this case was approximately 31 minutes. Rich Sarabia Nov 21, 2020 14:56
--- NOTE | 2020-11-21 15:00 | NUR ---
NURSE NOTES: pt recieved in SDU with fever 101.7, hr 137 carlos 131/81 and mag. was not replaced in ED. Tylenol was given for fever. and EKG was done and sent to doctor Leidy. Neuro Lia/ [facility] was contacted for seizure meds. pt in stable condition AO x1, pt is not very verbal. Bed padded locked and in lowest position. Call light within reach.
--- NOTE | 2020-11-21 15:30 | NUR ---
NURSE NOTES: per doctor Adore, keep pt NPO, give 1/2 ns @ 60ml/hr and DC home meds. added multiple consults for pt. see consults.
[2020-11-21] MEDS: Acetaminophen 500mg (ES) tab ORAL PRN ×2 (16:12→21:06)
--- NOTE | 2020-11-21 17:20 | NUR ---
*-*DISCHARGE PLANNING*-* PATIENT HAS BEEN REFERRED TO: [facility] P: [phone]
--- NOTE | 2020-11-21 18:05 | NUR ---
NURSE NOTES: Called [facility], to ask about pt code status, they do not know pt code status. Called Mile Brock, which is the fitness and wellness manager of the [facility] where she lives, she states pt is full code. She will be faxing a list of medication she is currently taking at home.
--- NOTE | 2020-11-21 18:30 | NUR ---
NURSE NOTES: notified doctor Adore and [facility] about testing pt for covid. NO answer yet.
--- NOTE | 2020-11-21 19:28 | NUR ---
NURSE NOTES: Report received from JOEL Gale. Observed pt lying in the bed. ST noted with HR of 130. On room air, no sob noted. NPO at this time. IV on R H 20G, R FA 20G, L AC 20G, L W 20G noted. Bed in the lowest position. Side rails padded and up x3. Call light within reach. Will continue to monitor.
[2020-11-21] MEDS ORDERED: LORazepam Inj 2mg/ml 1ml IV PRN (19:45)
--- NOTE | 2020-11-21 20:02 | NUR ---
NURSE HAND-OFF REPORT: Important Events on Shift:[] pt has been having fever, contacted [facility] for covid test, waiting for order, rails are padded no seizures after coming to SDU Patient Status: []full Diet: []npo Pending Orders: [] Pending Results/Labs:[] Pending MD notification:[] Latest Vital Signs: Temperature 99.8 , Pulse 138 , B/P 162 /89 , Respiratory Rate 18 , O2 SAT 99 , Room Air, O2 Flow Rate . Vital Sign Comment: [] EKG Rhythm: Sinus Tachycardia Rhythm change?: N MD Notified?: - MD Response: Latest Cervantes Fall Score: 95 Fall Risk: High Risk Safety Measures: Call light Within Reach, Bed Alarm Zone 2, Side Rails Side Rails x2, Bed position Low and Locked. Fall Precautions: y Yellow Socks y Yellow Gown y Patient Fall Education y Report given to [].
[2020-11-21] MEDS: Magnesium Oxide 400mg tab ORAL SCH (21:04)
[2020-11-21] MEDS: levETIRAcetam 500mg/NS100ml 100 ML IVPB SCH (21:05)
[2020-11-21] MEDS: Atorvastatin 20mg tab ORAL SCH (21:05)
--- NOTE | 2020-11-21 22:56 | NUR ---
NURSE NOTES: pt lying in the bed, confused, noted pt speech delayed. . ST noted, HR of 110s. On room air with no sob, saturating at 96%. Will continue to monitor.
[2020-11-22] VITALS (7 sets, daily range): BP systolic 128–164; BP diastolic 77–94
--- NOTE | 2020-11-22 01:54 | NUR ---
NURSE NOTES: Pt sleeping at this time. ST noted with HR of 110s. No acute distress noted. No seizure activity noted. Bed alarm on. Will continue to monitor.
[2020-11-22] MEDS ORDERED: THIOTHIXENE2 MG ORAL (02:38)
[2020-11-22] MEDS ORDERED: AMLODIPINE BESYL5 MG ORAL (02:38)
[2020-11-22] MEDS ORDERED: BENZTROPINE MESY1 MG ORAL (02:38)
[2020-11-22] MEDS ORDERED: NORMODYNE100 MG ORAL (02:38)
[2020-11-22] MEDS ORDERED: OLANZAPINE20 MG ORAL (02:38)
--- NOTE | 2020-11-22 07:22 | NUR ---
NURSE HAND-OFF REPORT: Important Events on Shift: No acute distress noted. No SZ noted. Patient Status: VS stable Diet: NPO Pending Orders: [] Pending Results/Labs:[] Pending MD notification:[] Latest Vital Signs: Temperature 98.2 , Pulse 116 , B/P 147 /89 , Respiratory Rate 20 , O2 SAT 96 , Room Air, O2 Flow Rate . Vital Sign Comment: [] EKG Rhythm: Sinus Tachycardia Rhythm change?: N MD Notified?: - MD Response: Latest Ecrvantes Fall Score: 95 Fall Risk: High Risk Safety Measures: Call light Within Reach, Bed Alarm Zone 1, Side Rails Side Rails x3, Bed position Low and Locked. Fall Precautions: Yellow Socks Door Sign Patient Fall Education Report given to JOEL Greer.
--- NOTE | 2020-11-22 07:35 | NUR ---
NURSE NOTES: Received report from JOEL Mariano. Pt is lying in bed, awake, not in distress. Pt is complaining of generalized pain. Sinus Tachy on the paralegal specialist. Tolerating room air with 98% O2 saturation. NPO. Skin issues noted. R forearm 20G, L AC 20G, and L wrist 20G are intact and patent. Bed is locked and in lowest position, bed alarm on, call light is with the pt. Recent labs, medication, and MD orders reviewed. Will continue to monitor pt. Will continue with the plan of care.
[2020-11-22] MEDS: Aspirin Baby 81mg ORAL SCH (08:41)
[2020-11-22] MEDS: Magnesium Oxide 400mg tab ORAL SCH ×2 (08:41→17:39)
[2020-11-22] MEDS: levETIRAcetam 500mg/NS100ml 100 ML IVPB SCH ×2 (08:43→21:06)
--- NOTE | 2020-11-22 08:49 | Pulmonology Progress Note ---
Subjective ROS Limited/Unobtainable: Yes Interval Events: no seizure overnight Constitutional: Reports: no symptoms HEENT: Repors: no symptoms Respiratory: Reports: no symptoms Cardiovascular: Reports: no symptoms Gastrointestinal/Abdominal: Reports: no symptoms Allergies: Coded Allergies: PENICILLINS (Verified Allergy, Intermediate, SNEEZING, 03/26/19) AMOXICILLIN (Unverified Allergy, Unknown, 11/21/20) Objective Last 24 Hour Vital Signs Date Time Temp Pulse Resp B/P (MAP) Pulse Ox O2 Delivery O2 Flow Rate FiO2 11/22/20 08:42 112 134/86 11/22/20 04:00 98.2 115 20 147/89 (108) 96 11/22/20 04:00 116 11/22/20 04:00 Room Air 11/22/20 00:37 153/92 (112) 11/22/20 00:00 Room Air 11/22/20 00:00 109 11/22/20 00:00 98.4 114 20 164/94 (117) 98 11/21/20 21:36 99.0 11/21/20 21:04 131 150/90 11/21/20 20:00 99.9 131 20 150/90 (110) 97 11/21/20 20:00 Room Air 11/21/20 20:00 129 11/21/20 17:07 Room Air 11/21/20 16:42 99.8 11/21/20 15:38 138 11/21/20 14:49 98.3 136 18 162/89 99 Room Air 11/21/20 12:00 97.0 122 18 164/86 97 Room Air 11/21/20 11:30 97.0 125 20 154/92 97 11/21/20 11:15 98.0 132 17 172/74 96 Room Air 11/21/20 11:00 97.7 129 20 160/72 97 Room Air 11/21/20 10:53 155 32 175/89 100 11/21/20 10:53 160 11/21/20 10:45 97.0 152 22 132/69 99 Room Air 11/21/20 10:35 151 138/55 11/21/20 10:30 97.7 149 22 138/55 99 Room Air 11/21/20 10:19 161 11/21/20 10:15 97.0 156 22 130/72 98 Room Air 11/21/20 10:00 141 18 171/82 98 Room Air 11/21/20 09:45 140 30 Room Air 11/21/20 09:45 145 24 96 11/21/20 09:39 149 21 100 11/21/20 09:26 98.8 93 16 163/88 (113) 95 Room Air Intake and Output 11/21/20 11/22/20 19:00 07:00 Intake Total 60 ml 880 ml Balance 60 ml 880 ml Intake IV Total 60 ml 880 ml General Appearance: no acute distress HEENT: atraumatic Respiratory: lungs clear Cardiovascular: normal rate, regular rhythm Abdomen: soft, non tender Microbiology Date/Time Source Procedure Growth Status 11/21/20 14:00 Rectum Received Laboratory Tests 11/21/20 09:35: White Blood Count 20.9H, Red Blood Count 4.71, Hemoglobin 13.5, Hematocrit 42.9, Mean Corpuscular Volume 91, Mean Corpuscular Hemoglobin 28.7, Mean Corpuscular Hemoglobin Concent 31.6L, Red Cell Distribution Width 13.7, Platelet Count 291, Mean Platelet Volume 6.6, Neutrophils (%) (Auto) , Lymphocytes (%) (Auto) , Monocytes (%) (Auto) , Eosinophils (%) (Auto) , Basophils (%) (Auto) , Differential Total Cells Counted 100, Neutrophils % (Manual) 83H, Lymphocytes % (Manual) 9L, Monocytes % (Manual) 8, Eosinophils % (Manual) 0, Basophils % (Manual) 0, Band Neutrophils 0, Platelet Estimate Adequate, Platelet Morphology Normal, Red Blood Cell Morphology , Hypochromasia 1+, Prothrombin Time 11.0, Prothromb Time International Ratio 1.0, Activated Partial Thromboplast Time 27, Sodium Level 134L, Potassium Level 4.5, Chloride Level 96L, Carbon Dioxide Level 23, Anion Gap 15, Blood Urea Nitrogen 10, Creatinine 1.3, Estimat Glomerular Filtration Rate 56.2, Glucose Level 238H, Calcium Level 8.9, Phosphorus Level 3.2, Magnesium Level 1.5L, Total Bilirubin 0.6, Aspartate Amino Transf (AST/SGOT) 62H, Alanine Aminotransferase (ALT/SGPT) 35, Alkaline Phosphatase 88, Troponin I 0.435H, Total Protein 8.2, Albumin 3.5, Globulin 4.7, Albumin/Globulin Ratio 0.7L, Acetaminophen Level < 2L, Serum Alcohol < 3 11/21/20 11:50: Urine Color Pale yellow, Urine Appearance Clear, Urine pH 7, Urine Specific [place] 1.005, Urine Protein 2+H, Urine Glucose (UA) Negative, Urine Ketones Negative, Urine Blood 4+H, Urine Nitrite Negative, Urine Bilirubin Negative, Urine Urobilinogen Normal, Urine Leukocyte Esterase Negative, Urine RBC 2-4H, Urine WBC 0-2, Urine Squamous Epithelial Cells Occasional, Urine Bacteria Occasional, Urine HCG, Qualitative Negative, Urine Opiates Screen Negative, Urine Barbiturates Screen Negative, Phencyclidine (PCP) Screen Negative, Urine Amphetamines Screen Negative, Urine Benzodiazepines Screen Negative, Urine Cocaine Screen Negative, Urine Marijuana (THC) Screen Negative 11/22/20 02:50: Troponin I 0.163H, Pro-B-Type Natriuretic Peptide 372H Current Medications Medications (Trade) Dose Ordered Sig/Eleanor Route PRN Reason Start Time Stop Time Status Last Admin Dose Admin Acetaminophen (Tylenol) 500 mg Q4H PRN ORAL Mild Pain fever 100.2 11/21/20 15:30 12/21/20 15:29 11/21/20 21:06 Aspirin (ASA) 81 mg DAILY ORAL 11/22/20 09:00 01/06/21 08:59 11/22/20 08:41 Atorvastatin Calcium (Lipitor) 20 mg BEDTIME ORAL 11/21/20 21:00 02/19/21 20:59 11/21/20 21:05 Levetiracetam 100 ml @ 400 mls/hr Q12HR IVPB 11/21/20 21:00 02/19/21 20:59 11/22/20 08:43 Lorazepam (Ativan 2mg/ml 1ml) 2 mg Q6H PRN IV For Anxiety 11/21/20 19:45 11/28/20 19:44 Magnesium Oxide (Mag-Ox 400mg) 400 mg BID ORAL 11/21/20 20:00 12/21/20 19:59 11/22/20 08:41 Metoprolol Tartrate (Lopressor) 25 mg Q12HR ORAL 11/21/20 21:00 02/19/21 20:59 11/22/20 08:42 Sodium Chloride 1,000 ml @ 60 mls/hr [id number] IV 11/21/20 15:40 12/21/20 15:39 11/22/20 08:45 Assessment/Plan Assessment/Plan 1. Hypertension - cardio following 2. Tachycardia -cardio following - venous duplex US to r/o DVT - check D-dimer 3. Leukocytosis - ID following 4. Elevated troponin -Serial troponin; troponin trending up -Cardio following 5. Risk for aspiration secondary to seizure -Monitor for aspiration risk due to altered mental status - fu CXR if indicated -s/p empiric antibiotics 6. Monitor for hypoxemia The care for this patient was discussed with my supervising physician. Time spent for this case was approximately 31 minutes. Rich Sarabia Nov 22, 2020 08:49
--- NOTE | 2020-11-22 09:19 | Diagnostic Imaging Report ---
EXAM: US Duplex Bilateral Lower Extremities Veins CLINICAL HISTORY: DVT TECHNIQUE: Real-time duplex ultrasound scan of the bilateral lower extremity veins integrating B-mode two-dimensional vascular structure, Doppler spectral analysis, color flow Doppler imaging and compression. COMPARISON: No relevant prior studies available. FINDINGS: Right deep veins: Unremarkable. No DVT in the right common femoral, femoral, proximal deep femoral or popliteal veins. The veins demonstrate normal color flow, are normally compressible, with normal phasic flow and/or augmentation response. Right superficial veins: Unremarkable. No thrombus in the visualized right great saphenous vein. Left deep veins: Unremarkable. No DVT in the left common femoral, femoral, proximal deep femoral or popliteal veins. The veins demonstrate normal color flow, are normally compressible, with normal phasic flow and/or augmentation response. Left superficial veins: Unremarkable. No thrombus in the visualized left great saphenous vein. Soft tissues: No acute findings. No popliteal cyst. IMPRESSION: Normal bilateral lower extremity duplex venous ultrasound.
--- NOTE | 2020-11-22 09:52 | Infectious Diseases Prog Note ---
Assessment/Plan Assessment/Plan A; SIRS,/ Sepsis Breakthrough seizure Tachycardia Elevated troponin Developmental delay DM P: Continue Levaquin F/U CBC Subjective ROS Limited/Unobtainable: Yes Constitutional: Denies: fever Allergies: Coded Allergies: PENICILLINS (Verified Allergy, Intermediate, SNEEZING, 03/26/19) AMOXICILLIN (Unverified Allergy, Unknown, 11/21/20) Objective Last 24 Hour Vital Signs Date Time Temp Pulse Resp B/P (MAP) Pulse Ox O2 Delivery O2 Flow Rate FiO2 11/22/20 08:42 112 134/86 11/22/20 08:00 Room Air 11/22/20 08:00 96.0 112 18 134/86 (102) 98 11/22/20 08:00 111 11/22/20 04:00 98.2 115 20 147/89 (108) 96 11/22/20 04:00 116 11/22/20 04:00 Room Air 11/22/20 00:37 153/92 (112) 11/22/20 00:00 Room Air 11/22/20 00:00 109 11/22/20 00:00 98.4 114 20 164/94 (117) 98 11/21/20 21:36 99.0 11/21/20 21:04 131 150/90 11/21/20 20:00 99.9 131 20 150/90 (110) 97 11/21/20 20:00 Room Air 11/21/20 20:00 129 11/21/20 17:07 Room Air 11/21/20 16:42 99.8 11/21/20 15:38 138 11/21/20 14:49 98.3 136 18 162/89 99 Room Air 11/21/20 12:00 97.0 122 18 164/86 97 Room Air 11/21/20 11:30 97.0 125 20 154/92 97 11/21/20 11:15 98.0 132 17 172/74 96 Room Air 11/21/20 11:00 97.7 129 20 160/72 97 Room Air 11/21/20 10:53 155 32 175/89 100 11/21/20 10:53 160 11/21/20 10:45 97.0 152 22 132/69 99 Room Air 11/21/20 10:35 151 138/55 11/21/20 10:30 97.7 149 22 138/55 99 Room Air 11/21/20 10:19 161 11/21/20 10:15 97.0 156 22 130/72 98 Room Air 11/21/20 10:00 141 18 171/82 98 Room Air Height (Feet): 5 Height (Inches): 8.00 Weight (Pounds): 160 HEENT: mucous membranes moist Respiratory/Chest: lungs clear Cardiovascular: tachycardia Abdomen: soft, non tender Extremities: no edema Neurologic/Psychiatric: alert, responsive Microbiology Date/Time Source Procedure Growth Status 11/21/20 14:00 Rectum Received Laboratory Tests Test 11/21/20 11:50 11/22/20 02:50 Urine Color Pale yellow Urine Appearance Clear Urine pH 7 (4.5-8.0) Urine Specific [place] 1.005 (1.005-1.035) Urine Protein 2+ (NEGATIVE) H Urine Glucose (UA) Negative (NEGATIVE) Urine Ketones Negative (NEGATIVE) Urine Blood 4+ (NEGATIVE) H Urine Nitrite Negative (NEGATIVE) Urine Bilirubin Negative (NEGATIVE) Urine Urobilinogen Normal MG/DL (0.0-1.0) Urine Leukocyte Esterase Negative (NEGATIVE) Urine RBC 2-4 /HPF (0 - 2) H Urine WBC 0-2 /HPF (0 - 2) Urine Squamous Epithelial Cells Occasional /LPF Urine Bacteria Occasional /HPF (NONE) Urine HCG, Qualitative Negative (NEGATIVE) Urine Opiates Screen Negative (NEGATIVE) Urine Barbiturates Screen Negative (NEGATIVE) Phencyclidine (PCP) Screen Negative (NEGATIVE) Urine Amphetamines Screen Negative (NEGATIVE) Urine Benzodiazepines Screen Negative (NEGATIVE) Urine Cocaine Screen Negative (NEGATIVE) Urine Marijuana (THC) Screen Negative (NEGATIVE) Troponin I 0.163 ng/mL (0.000-0.056) Pro-B-Type Natriuretic Peptide 372 pg/mL (0-125) H Current Medications Medications (Trade) Dose Ordered Sig/Eleanor Route PRN Reason Start Time Stop Time Status Last Admin Dose Admin Acetaminophen (Tylenol) 500 mg Q4H PRN ORAL Mild Pain fever 100.2 11/21/20 15:30 12/21/20 15:29 11/21/20 21:06 Aspirin (ASA) 81 mg DAILY ORAL 11/22/20 09:00 01/06/21 08:59 11/22/20 08:41 Atorvastatin Calcium (Lipitor) 20 mg BEDTIME ORAL 11/21/20 21:00 02/19/21 20:59 11/21/20 21:05 Levetiracetam 100 ml @ 400 mls/hr Q12HR IVPB 11/21/20 21:00 02/19/21 20:59 11/22/20 08:43 Lorazepam (Ativan 2mg/ml 1ml) 2 mg Q6H PRN IV For Anxiety 11/21/20 19:45 11/28/20 19:44 Magnesium Oxide (Mag-Ox 400mg) 400 mg BID ORAL 11/21/20 20:00 12/21/20 19:59 11/22/20 08:41 Metoprolol Tartrate (Lopressor) 25 mg Q12HR ORAL 11/21/20 21:00 02/19/21 20:59 11/22/20 08:42 Sodium Chloride 1,000 ml @ 60 mls/hr [id number] IV 11/21/20 15:40 12/21/20 15:39 11/22/20 08:45 Bryan Burrows MD Nov 22, 2020 09:52
--- NOTE | 2020-11-22 11:00 | NUR ---
NURSE NOTES: Initial assessment done. Pt is awake, alert, passive, and very dependent, tolerating room air. VSS, not in acute distess. Sinus Tachy on the environmental monitoring specialist. Morning medications administered per order. Incontinent to urine. Pt is cleaned, linens and gown changed. Pt is currently watching tv. Will continue to closely monitor pt.
--- NOTE | 2020-11-22 11:08 | Neurology Progress Note ---
Interim History Interim History ROS Limited/Unobtainable: Yes Events: pt is sleepy waving her hand Objective Physical Exam Last Vital Signs Date Time Temp Pulse Resp B/P (MAP) Pulse Ox O2 Delivery O2 Flow Rate FiO2 11/22/20 08:42 112 134/86 11/22/20 08:00 Room Air 11/22/20 08:00 96.0 18 98 Laboratory Tests Test 11/21/20 11:50 11/22/20 02:50 11/22/20 10:30 Urine Color Pale yellow Urine Appearance Clear Urine pH 7 (4.5-8.0) Urine Specific [place] 1.005 (1.005-1.035) Urine Protein 2+ (NEGATIVE) H Urine Glucose (UA) Negative (NEGATIVE) Urine Ketones Negative (NEGATIVE) Urine Blood 4+ (NEGATIVE) H Urine Nitrite Negative (NEGATIVE) Urine Bilirubin Negative (NEGATIVE) Urine Urobilinogen Normal MG/DL (0.0-1.0) Urine Leukocyte Esterase Negative (NEGATIVE) Urine RBC 2-4 /HPF (0 - 2) H Urine WBC 0-2 /HPF (0 - 2) Urine Squamous Epithelial Cells Occasional /LPF Urine Bacteria Occasional /HPF (NONE) Urine HCG, Qualitative Negative (NEGATIVE) Urine Opiates Screen Negative (NEGATIVE) Urine Barbiturates Screen Negative (NEGATIVE) Phencyclidine (PCP) Screen Negative (NEGATIVE) Urine Amphetamines Screen Negative (NEGATIVE) Urine Benzodiazepines Screen Negative (NEGATIVE) Urine Cocaine Screen Negative (NEGATIVE) Urine Marijuana (THC) Screen Negative (NEGATIVE) Troponin I 0.163 ng/mL (0.000-0.056) Pro-B-Type Natriuretic Peptide 372 pg/mL (0-125) H D-Dimer 1.71 mg/L FEU (0.00-0.49) H Neurologic Exam Objective ROS unable to assess Vitals Reviewed General: Patient is lying down Neuro: Alert to self oriented to self does not remember what happened Comprehension intact. Language parameters intact slow to respond. Crainial nervies II-XI were tested. PEERLA No nystagmus. Tongue is midline. Facial is symmetric. hearing intact Motor: No invountary movements, bilateral Upper extremities 4/5 Lower extremities 4/5. Sensation: intact Gait not tested Postictal Impression/Recommendations Diagnostic Impression IMAGING: CT HEAD:Findings: No acute intracranial hemorrhage or edema, mass effect, nor midline shift. Normal [place]-white differentiation. There is abnormal configuration of the posterior lateral ventricles. These appear more normal anteriorly. Size of the ventricles and extra axial CSF spaces. Visualized orbits and sinuses are unremarkable. The mastoids are clear. The calvarium is intact. 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 Seizure, she is in post ictal phase responds slowly to questions --> continue keppra and ativan, CT Head reviewed --> will review records from [facility], further rec's to follow-continue as is for now 2. Methamphetamine abuse 3. Obesty 4. Schizophrenia 5. Hyupoxia --> Pulmo on board Lia Coburn NP Nov 22, 2020 11:08
--- NOTE | 2020-11-22 14:59 | Cardiac Electrophysiology PN ---
Assessment/Plan Assessment/Plan 1. HTN On Lopressor 25 po bid. EF 65% 2. SVT vs sinus tach better with Lopressor. S/P Adenosine 12 mg x2 and iv cardizem with no response 3. Hyperlipidemia on Lipitor 4. Seizure on keppra and ativan, CT Head reviewed 5. Methamphetamine abuse 6. Obesty 7. Schizophrenia DW RN Subjective Subjective In sinus tach 107. No CP or SOB. on RA Objective Last 24 Hour Vital Signs Date Time Temp Pulse Resp B/P (MAP) Pulse Ox O2 Delivery O2 Flow Rate FiO2 11/22/20 12:00 97.7 101 20 128/88 (101) 98 11/22/20 12:00 Room Air 11/22/20 12:00 108 11/22/20 08:42 112 134/86 11/22/20 08:00 Room Air 11/22/20 08:00 96.0 112 18 134/86 (102) 98 11/22/20 08:00 111 11/22/20 04:00 98.2 115 20 147/89 (108) 96 11/22/20 04:00 116 11/22/20 04:00 Room Air 11/22/20 00:37 153/92 (112) 11/22/20 00:00 Room Air 11/22/20 00:00 109 11/22/20 00:00 98.4 114 20 164/94 (117) 98 11/21/20 21:36 99.0 11/21/20 21:04 131 150/90 11/21/20 20:00 99.9 131 20 150/90 (110) 97 11/21/20 20:00 Room Air 11/21/20 20:00 129 11/21/20 17:07 Room Air 11/21/20 16:42 99.8 11/21/20 15:38 138 Intake and Output 11/21/20 11/22/20 19:00 07:00 Intake Total 60 ml 880 ml Balance 60 ml 880 ml Intake IV Total 60 ml 880 ml Laboratory Tests Test 11/22/20 02:50 11/22/20 10:30 Troponin I 0.163 ng/mL (0.000-0.056) Pro-B-Type Natriuretic Peptide 372 pg/mL (0-125) H D-Dimer 1.71 mg/L FEU (0.00-0.49) H Microbiology Date/Time Source Procedure Growth Status 11/21/20 14:00 Rectum Received Objective General Appearance: no acute distress HEENT: atraumatic Respiratory: lungs clear Cardiovascular: normal rate, regular rhythm Abdomen: soft, non tender Carl Weber MD Nov 22, 2020 14:59
[2020-11-22 18:10] LABS: APPEARANCE,URINE SLIGHTLY CLOUDY; BILIRUBIN, URINE NEGATIVE (NEGATIVE); COLOR,URINE PALE YELLOW; GLUCOSE, URINE (UA) NEGATIVE (NEGATIVE); KETONES,URINE NEGATIVE (NEGATIVE); LEUKOCYTE ESTERASE ,URINE 3+ (NEGATIVE); NITRITE,URINE NEGATIVE (NEGATIVE); PH,URINE 6 (4.5-8.0); PROTEIN,URINE 3+ (NEGATIVE); UROBILINOGEN,URINE NORMAL MG/DL (0.0-1.0)
--- NOTE | 2020-11-22 19:15 | NUR ---
NURSE NOTES: Received patient from JOEL Greer. Patient is awake in bed watching TV. sinus tachycardia on the monitor (HR 116). on room air, tolerating well. currently NPO. 1/2 NS @60ml/hr. bed to lowest position and locked, call light within easy reach. side rails up x2. will continue plan of care.
--- NOTE | 2020-11-22 19:30 | NUR ---
NURSE HAND-OFF REPORT: Important Events on Shift:None Patient Status: full code Diet: npo Pending Orders: N Pending Results/Labs:N Pending MD notification:N Latest Vital Signs: Temperature 98.1 , Pulse 115 , B/P 134 /77 , Respiratory Rate 20 , O2 SAT 97 , Room Air, O2 Flow Rate . Vital Sign Comment: stable EKG Rhythm: Sinus Tachycardia Rhythm change?: N MD Notified?: - MD Response: Latest Cervnates Fall Score: 95 Fall Risk: High Risk Safety Measures: Call light Within Reach, Bed Alarm Zone 1, Side Rails Side Rails x3, Bed position Low and Locked. Fall Precautions: Yellow Socks Door Sign Patient Fall Education Report given to JOEL Malagon.
--- NOTE | 2020-11-22 20:27 | General Progress Note ---
Subjective ROS Limited/Unobtainable: Yes Allergies: Coded Allergies: PENICILLINS (Verified Allergy, Intermediate, SNEEZING, 03/26/19) AMOXICILLIN (Unverified Allergy, Unknown, 11/21/20) Objective Last 24 Hour Vital Signs Date Time Temp Pulse Resp B/P (MAP) Pulse Ox O2 Delivery O2 Flow Rate FiO2 11/22/20 16:00 Room Air 11/22/20 16:00 111 11/22/20 16:00 98.1 115 20 134/77 (96) 97 11/22/20 12:00 97.7 101 20 128/88 (101) 98 11/22/20 12:00 Room Air 11/22/20 12:00 108 11/22/20 08:42 112 134/86 11/22/20 08:00 Room Air 11/22/20 08:00 96.0 112 18 134/86 (102) 98 11/22/20 08:00 111 11/22/20 04:00 98.2 115 20 147/89 (108) 96 11/22/20 04:00 116 11/22/20 04:00 Room Air 11/22/20 00:37 153/92 (112) 11/22/20 00:00 Room Air 11/22/20 00:00 109 11/22/20 00:00 98.4 114 20 164/94 (117) 98 11/21/20 21:36 99.0 11/21/20 21:04 131 150/90 Intake and Output 11/21/20 11/22/20 19:00 07:00 Intake Total 60 ml 880 ml Balance 60 ml 880 ml Intake IV Total 60 ml 880 ml Laboratory Tests 11/22/20 02:50: Troponin I 0.163H, Pro-B-Type Natriuretic Peptide 372H 11/22/20 10:30: D-Dimer 1.71H 11/22/20 18:00: Urine Color Pale yellow, Urine Appearance Slightly cloudy, Urine pH 6, Urine Specific [place] 1.015, Urine Protein 3+H, Urine Glucose (UA) Negative, Urine Ketones Negative, Urine Blood 2+H, Urine Nitrite Negative, Urine Bilirubin Negative, Urine Urobilinogen Normal, Urine Leukocyte Esterase 3+H, Urine RBC 10- 15H, Urine WBC TntcH, Urine Squamous Epithelial Cells ModerateH, Urine Bacteria ManyH, Urine Trichomonas FewH Height (Feet): 5 Height (Inches): 8.00 Weight (Pounds): 160 Assessment/Plan Problem List: (1) Seizure disorder ICD Codes: G40.909 - Epilepsy, unspecified, not intractable, without status epi lepticus SNOMED: 131639655 (2) SVT (supraventricular tachycardia) ICD Codes: I47.1 - Supraventricular tachycardia SNOMED: 2769038 (3) Status epilepticus ICD Codes: G40.901 - Epilepsy, unspecified, not intractable, with status epilepticus SNOMED: 970407695 Status: progressing Assessment/Plan: more alert mental delay recurrent and refractory seizure afebrile pna leukocytosis is improving vitals stable Israel Avitia MD Nov 22, 2020 20:27
[2020-11-22] MEDS: Atorvastatin 20mg tab ORAL SCH (21:06)
[2020-11-22] MEDS: Heparin 5000 units/ml inj SUBQ SCH (21:08)
[2020-11-23] VITALS: BP 132/74
--- NOTE | 2020-11-23 00:13 | NUR ---
NURSE NOTES: patient is asleep in bed without any acute distress noted. maintained comfort and safety
--- NOTE | 2020-11-23 02:50 | NUR ---
NURSE NOTES: patient remains asleep without any distress noted. vital signs stable
[2020-11-23 04:00] VITALS: BP 130/90
--- NOTE | 2020-11-23 05:16 | NUR ---
NURSE NOTES: patient had no BM. vital signs stable.
[2020-11-23 06:38] LABS: BASOPHILS % (AUTO) 1.2 % (0.0-2.0); EOSINOPHILS % (AUTO) 0.4 % (0.0-3.0); HEMOGLOBIN 15.2 G/DL (12.0-16.0); LYMPHOCYTES % (AUTO) 23.1 % (20.0-45.0); MEAN CORPUSCULAR VOLUME 90 FL (80-99); MONOCYTES % (AUTO) 10.4 % (1.0-10.0); NEUTROPHILS % (AUTO) 64.9 % (45.0-75.0); PLATELET COUNT 318 K/UL (150-450); RED BLOOD COUNT 5.21 M/UL (4.20-5.40); RED CELL DISTRIBUTION WIDTH 13.9 % (11.6-14.8); WHITE BLOOD COUNT 14.1 K/UL (4.8-10.8)
--- NOTE | 2020-11-23 07:10 | NUR ---
NURSE NOTES: received patient report from bala landaverde. patient is on bed asleep.not in acute distress, no acute events reported last night. afebrile.npo pending ST eval. fluid running at prescribed rate. bed is low and locked for safety. will follow plan of care.
--- NOTE | 2020-11-23 07:15 | NUR ---
NURSE HAND-OFF REPORT: Important Events on Shift:patient remains stable Patient Status: FULL CODE Diet: NPO Pending Orders: [] Pending Results/Labs:[] Pending MD notification:[] Latest Vital Signs: Temperature 98.2 , Pulse 113 , B/P 130 /90 , Respiratory Rate 18 , O2 SAT 96 , Room Air, O2 Flow Rate . Vital Sign Comment: [] EKG Rhythm: Sinus Tachycardia Rhythm change?: N MD Notified?: - MD Response: Latest Cervantes Fall Score: 95 Fall Risk: High Risk Safety Measures: Call light Within Reach, Bed Alarm Zone 1, Side Rails Side Rails x3, Bed position Low and Locked. Fall Precautions: Yellow Socks Door Sign Patient Fall Education Report given to JOEL Vinson.
[2020-11-23 08:00] VITALS: BP 123/94
[2020-11-23] MEDS: Aspirin Baby 81mg ORAL SCH (08:40)
[2020-11-23] MEDS: Magnesium Oxide 400mg tab ORAL SCH (08:40)
[2020-11-23] MEDS: Heparin 5000 units/ml inj SUBQ SCH ×2 (08:41→19:56)
[2020-11-23] MEDS: levETIRAcetam 500mg/NS100ml 100 ML IVPB SCH ×2 (08:43→19:52)
--- NOTE | 2020-11-23 11:33 | Pulmonology Progress Note ---
Subjective ROS Limited/Unobtainable: Yes Interval Events: no seizure overnight Constitutional: Denies: fever HEENT: Repors: no symptoms Respiratory: Reports: no symptoms Cardiovascular: Reports: no symptoms Gastrointestinal/Abdominal: Reports: no symptoms Allergies: Coded Allergies: PENICILLINS (Verified Allergy, Intermediate, SNEEZING, 03/26/19) AMOXICILLIN (Unverified Allergy, Unknown, 11/21/20) Objective Last 24 Hour Vital Signs Date Time Temp Pulse Resp B/P (MAP) Pulse Ox O2 Delivery O2 Flow Rate FiO2 11/23/20 08:40 103 123/94 11/23/20 08:00 Room Air 11/23/20 08:00 97.7 103 18 123/94 (104) 97 11/23/20 08:00 109 11/23/20 04:00 Room Air 11/23/20 04:00 108 11/23/20 04:00 98.2 113 18 130/90 (103) 96 11/23/20 00:00 98.2 98 18 132/74 (93) 100 11/23/20 00:00 99 11/23/20 00:00 Room Air 11/22/20 21:06 115 156/90 11/22/20 20:00 118 11/22/20 20:00 98.1 115 17 156/90 (112) 99 11/22/20 20:00 Room Air 11/22/20 16:00 Room Air 11/22/20 16:00 111 11/22/20 16:00 98.1 115 20 134/77 (96) 97 11/22/20 12:00 97.7 101 20 128/88 (101) 98 11/22/20 12:00 Room Air 11/22/20 12:00 108 Intake and Output 11/22/20 11/23/20 19:00 07:00 Intake Total 810 ml 660 ml Balance 810 ml 660 ml Intake IV Total 810 ml 660 ml General Appearance: no acute distress HEENT: atraumatic Respiratory: lungs clear Cardiovascular: normal rate, regular rhythm Abdomen: soft, non tender Microbiology Date/Time Source Procedure Growth Status 11/22/20 18:00 Urine,Clean Catch Urine Culture - Preliminary NO GROWTH Resulted 11/21/20 14:00 Rectum - Final NO CARBAPENEM-RESISTANT ENTEROBACTERI... Complete 11/21/20 14:00 Rectum VRE Culture - Final NO VANCOMYCIN RESISTANT ENTEROCOCCUS ... Complete 11/21/20 14:00 Nasal Nares MRSA Culture - Final NO METHICILLIN RESISTANT STAPH AUREUS... Complete Laboratory Tests 11/22/20 18:00: Urine Color Pale yellow, Urine Appearance Slightly cloudy, Urine pH 6, Urine Specific [place] 1.015, Urine Protein 3+H, Urine Glucose (UA) Negative, Urine Ketones Negative, Urine Blood 2+H, Urine Nitrite Negative, Urine Bilirubin Negative, Urine Urobilinogen Normal, Urine Leukocyte Esterase 3+H, Urine RBC 10- 15H, Urine WBC TntcH, Urine Squamous Epithelial Cells ModerateH, Urine Bacteria ManyH, Urine Trichomonas FewH 11/23/20 04:22: White Blood Count 14.1H, Red Blood Count 5.21, Hemoglobin 15.2, Hematocrit 47.0, Mean Corpuscular Volume 90, Mean Corpuscular Hemoglobin 29.1, Mean Corpuscular Hemoglobin Concent 32.3, Red Cell Distribution Width 13.9, Platelet Count 318, Mean Platelet Volume 7.7, Neutrophils (%) (Auto) 64.9, Lymphocytes (%) (Auto) 23.1, Monocytes (%) (Auto) 10.4H, Eosinophils (%) (Auto) 0.4, Basophils (%) (Auto) 1.2 Current Medications Medications (Trade) Dose Ordered Sig/Eleanor Route PRN Reason Start Time Stop Time Status Last Admin Dose Admin Acetaminophen (Tylenol) 500 mg Q4H PRN ORAL Mild Pain fever 100.2 11/21/20 15:30 12/21/20 15:29 11/21/20 21:06 Aspirin (ASA) 81 mg DAILY ORAL 11/22/20 09:00 01/06/21 08:59 11/23/20 08:40 Atorvastatin Calcium (Lipitor) 20 mg BEDTIME ORAL 11/21/20 21:00 02/19/21 20:59 11/22/20 21:06 Heparin Sodium (Porcine) (Heparin 5000 units/ml) 5,000 units EVERY 12 HOURS SUBQ 11/22/20 21:00 01/06/21 20:59 11/23/20 08:41 Levetiracetam 100 ml @ 400 mls/hr Q12HR IVPB 11/21/20 21:00 02/19/21 20:59 11/23/20 08:43 Levofloxacin 150 ml @ 100 mls/hr Q24H IVPB 11/22/20 11:00 11/29/20 10:59 11/22/20 11:18 Lorazepam (Ativan 2mg/ml 1ml) 2 mg Q6H PRN IV For Anxiety 11/21/20 19:45 11/28/20 19:44 Magnesium Oxide (Mag-Ox 400mg) 400 mg BID ORAL 11/21/20 20:00 12/21/20 19:59 11/23/20 08:40 Metoprolol Tartrate (Lopressor) 25 mg Q12HR ORAL 11/21/20 21:00 02/19/21 20:59 11/23/20 08:40 Sodium Chloride 1,000 ml @ 60 mls/hr [id number] IV 11/21/20 15:40 12/21/20 15:39 11/23/20 01:04 Assessment/Plan Assessment/Plan 1. Hypertension - cardio following 2. Tachycardia -cardio following - venous duplex US negative for DVT 3. Sepsis/Leukocytosis - ID following - on Abx 4. Elevated troponin -Serial troponin; troponin trending down -Cardio following 5. Risk for aspiration secondary to seizure -Monitor for aspiration risk due to altered mental status - fu CXR if indicated -s/p empiric antibiotics 6. Monitor for hypoxemia 7. Elevated D-dimer - venous duplex US negative for DVT - on heparin - on SCD The care for this patient was discussed with my supervising physician. Time spent for this case was approximately 31 minutes. Rich Sarabia Nov 23, 2020 11:33
[2020-11-23 12:00] VITALS: BP 106/70
[2020-11-23] MEDS ORDERED: BENZTROPINE MESY1 MG ORAL (12:25)
[2020-11-23] MEDS ORDERED: DOCUSATE SODIU250 MG ORAL (12:30)
[2020-11-23] MEDS ORDERED: ZYPREXA10 MG ORAL ×2 (12:30→12:32)
[2020-11-23] MEDS ORDERED: OLANZAPINE20 MG ORAL (12:32)
[2020-11-23] MEDS ORDERED: LOCOID 0.1% LIP15 GM TP (12:37)
[2020-11-23] MEDS ORDERED: TRI-ESTARYLLA1 EACH PO (12:37)
--- NOTE | 2020-11-23 14:16 | Consultation ---
Consult Note Consult Note Asked to evaluate the patient at the request of Dr. Alonso for management of abnormal electrolytes low magnesium and low sodium Patient admitted with seizure, status epilepticus ER note: Chief Complaint: Seizure HPI: 35-year-old female history of seizure disorder and methamphetamine use [facility] witnessed generalized tonic-clonic seizure. He had reports of witnessed generalized tonic-clonic seizure lasting several minutes while the patient was in bed. No head trauma reported. Patient arrives nonverbal with eyes deviated to the right and rhythmic beating of the right upper extremity. Cannot obtain any information from patient. No further information by EMS. Review of penitentiary documentation shows she takes Keppra and lorazepam. PMH: Seizure disorder, methamphetamine abuse PSH: Unable to obtain from patient Allergies: Amoxicillin and penicillins listed in medical chart Social Hx: Amphetamine use in medical chart Coded Allergies: PENICILLINS (Verified Allergy, Intermediate, SNEEZING, 03/26/19) AMOXICILLIN (Unverified Allergy, Unknown, 11/21/20) Nursing Documentation-PMH Hx Hypertension: Yes PHYSICAL EXAMINATION: VITAL SIGNS: Temperature is 98, pulse 132, blood pressure is 172/74. GENERAL APPEARANCE: Well developed. HEAD AND NECK: [place] conjunctivae. HEART: Tachycardic. LUNGS: Clear. ABDOMEN: Soft and nontender. EXTREMITIES: No edema. NEUROLOGIC: Nonresponsive. LABORATORY AND DIAGNOSTIC DATA: WBC 20.9, hemoglobin 13.5, hematocrit 42.9, and platelets 291. potassium 4.5, chloride 96, bicarb 23, BUN 10, creatinine 1.3, glucose was 238. Troponin was elevated at 0.435. CT scan of the head showed no acute bleeding. 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 . Assessment/Plan Imp: Hypomagnesium Hyponatremia Seizure disorder, status epilepticus SVT History of hypertension Tachycardia Developmental delay Diabetes mellitus Plan: IV magnesium sulfate 4 g Check: Urine and serum osmolality, uric acid, TSH, lipid panel as part of hyponatremia work-up Stop hypotonic solution and start isotonic solution Per orders Kerwin Li MD Nov 23, 2020 14:16
[2020-11-23] MEDS: D5NS 1,000 ML IV SCH (14:38)
[2020-11-23 16:00] VITALS: BP 130/76
--- NOTE | 2020-11-23 19:10 | NUR ---
NURSE HAND-OFF REPORT: Important Events on Shift:stable Patient Status: full code Diet: cardiac soft mech chopped Pending Orders: Pending Results/Labs:[] Pending MD notification:[] Latest Vital Signs: Temperature 97.9 , Pulse 107 , B/P 130 /76 , Respiratory Rate 19 , O2 SAT 96 , Room Air, O2 Flow Rate . Vital Sign Comment: stable EKG Rhythm: Sinus Tachycardia Rhythm change?: N MD Notified?: - MD Response: Latest Cervantes Fall Score: 95 Fall Risk: High Risk Safety Measures: Call light Within Reach, Bed Alarm Zone 2, Side Rails Side Rails x3, Bed position Low and Locked. Fall Precautions: Yellow Socks Door Sign Patient Fall Education Report given to bala landaverde.
--- NOTE | 2020-11-23 19:10 | NUR ---
NURSE NOTES: Received patient from JOEL Vinson. patient is awake in bed watching TV. sinus tachycardia on the monitor (HR 114). on room air, tolerating well. purewick in place. D5NS running @50ml/hr. bed to lowest position and locked. side rails up x3. call light within easy reach. will continue plan of care.
--- NOTE | 2020-11-23 19:33 | Psychiatric Progress Note ---
Psychiatry Progress Note Psychiatry Progress Note Medications Current Medications Medications (Trade) Dose Ordered Sig/Eleanor Route PRN Reason Start Time Stop Time Status Last Admin Dose Admin Acetaminophen (Tylenol) 500 mg Q4H PRN ORAL Mild Pain fever 100.2 11/21/20 15:30 12/21/20 15:29 11/21/20 21:06 Aspirin (ASA) 81 mg DAILY ORAL 11/22/20 09:00 01/06/21 08:59 11/23/20 08:40 Atorvastatin Calcium (Lipitor) 20 mg BEDTIME ORAL 11/21/20 21:00 02/19/21 20:59 11/22/20 21:06 Dextrose/Sodium Chloride 1,000 ml @ 50 mls/hr Q20H IV 11/23/20 14:45 12/23/20 14:44 11/23/20 14:38 Heparin Sodium (Porcine) (Heparin 5000 units/ml) 5,000 units EVERY 12 HOURS SUBQ 11/22/20 21:00 01/06/21 20:59 11/23/20 08:41 Levetiracetam 100 ml @ 400 mls/hr Q12HR IVPB 11/21/20 21:00 02/19/21 20:59 11/23/20 08:43 Levofloxacin 150 ml @ 100 mls/hr Q24H IVPB 11/22/20 11:00 11/29/20 10:59 11/23/20 11:46 Lorazepam (Ativan 2mg/ml 1ml) 2 mg Q6H PRN IV For Anxiety 11/21/20 19:45 11/28/20 19:44 Metoprolol Tartrate (Lopressor) 25 mg Q12HR ORAL 11/21/20 21:00 02/19/21 20:59 11/23/20 08:40 Allergies: Coded Allergies: PENICILLINS (Verified Allergy, Intermediate, SNEEZING, 03/26/19) Black Pepper (Verified Allergy, Mild, 11/23/20) AMOXICILLIN (Unverified Allergy, Unknown, 11/21/20) Objective Data Height (Feet): 5 Height (Inches): 8.00 Weight (Pounds): 160 Assessment/Plan Status: progressing Mary Humphrey MD Nov 23, 2020 19:33
[2020-11-23] MEDS: Atorvastatin 20mg tab ORAL SCH (19:53)
[2020-11-23 20:00] VITALS: BP 125/83
--- NOTE | 2020-11-23 20:21 | General Progress Note ---
Subjective ROS Limited/Unobtainable: Yes Allergies: Coded Allergies: PENICILLINS (Verified Allergy, Intermediate, SNEEZING, 03/26/19) Black Pepper (Verified Allergy, Mild, 11/23/20) AMOXICILLIN (Unverified Allergy, Unknown, 11/21/20) Objective Last 24 Hour Vital Signs Date Time Temp Pulse Resp B/P (MAP) Pulse Ox O2 Delivery O2 Flow Rate FiO2 11/23/20 19:53 108 133/65 11/23/20 16:00 97.9 107 19 130/76 (94) 96 11/23/20 16:00 Room Air 11/23/20 15:32 107 11/23/20 12:00 96 11/23/20 12:00 Room Air 11/23/20 12:00 97.0 103 20 106/70 (82) 96 11/23/20 08:40 103 123/94 11/23/20 08:00 Room Air 11/23/20 08:00 97.7 103 18 123/94 (104) 97 11/23/20 08:00 109 11/23/20 04:00 Room Air 11/23/20 04:00 108 11/23/20 04:00 98.2 113 18 130/90 (103) 96 11/23/20 00:00 98.2 98 18 132/74 (93) 100 11/23/20 00:00 99 11/23/20 00:00 Room Air 11/22/20 21:06 115 156/90 Intake and Output 11/22/20 11/23/20 19:00 07:00 Intake Total 810 ml 660 ml Balance 810 ml 660 ml IV Total 810 ml 660 ml Laboratory Tests 11/23/20 04:22: White Blood Count 14.1H, Red Blood Count 5.21, Hemoglobin 15.2, Hematocrit 47.0, Mean Corpuscular Volume 90, Mean Corpuscular Hemoglobin 29.1, Mean Corpuscular Hemoglobin Concent 32.3, Red Cell Distribution Width 13.9, Platelet Count 318, Mean Platelet Volume 7.7, Neutrophils (%) (Auto) 64.9, Lymphocytes (%) (Auto) 23.1, Monocytes (%) (Auto) 10.4H, Eosinophils (%) (Auto) 0.4, Basophils (%) (Auto) 1.2 1/31/21 15:00: Urine Osmolality 441, Urine Random Sodium 47 Height (Feet): 5 Height (Inches): 8.00 Weight (Pounds): 160 Assessment/Plan Problem List: (1) Seizure disorder ICD Codes: G40.909 - Epilepsy, unspecified, not intractable, without status epilepticus SNOMED: 146966548 (2) SVT (supraventricular tachycardia) ICD Codes: I47.1 - Supraventricular tachycardia SNOMED: 9646639 (3) Status epilepticus ICD Codes: G40.901 - Epilepsy, unspecified, not intractable, with status epilepticus SNOMED: 486788886 Status: progressing Assessment/Plan: reviewed chart and labs svt resolved mental delay recurrent and refractory seizure r/o aspiration pna leukocytosis is improving Israel Avitia MD Nov 23, 2020 20:21
--- NOTE | 2020-11-23 22:06 | NUR ---
NURSE NOTES: bed linen changed. vital signs stable.
[2020-11-24] VITALS: BP 126/73
--- NOTE | 2020-11-24 01:29 | Consultation ---
DATE OF CONSULTATION: 11/21/2020 CARDIOLOGY CONSULTATION CONSULTING PHYSICIAN: Carl Weber MD REFERRING PHYSICIAN: Israel Avitia MD REASON FOR CONSULTATION: SVT at rate of 160 beats per minute. HISTORY OF PRESENT ILLNESS: Patient is a 35-year-old lady with history of seizure disorder and methamphetamine use, who reportedly [facility] for weakness, tonic-clonic seizures several times while patient was in bed. Patient had no head trauma. Patient arrived in the ER, nonverbal, and eyes deviated to the right. Patient was also tachycardic with heart rate 160 beats per minute. Two doses of 12 mg of adenosine was given with no effect and then Cardizem was given. Cardiology consultation was obtained for further evaluation and management. At the time of my evaluation, patient is still postictal in the emergency room and is unable to provide any information. REVIEW OF SYSTEMS: Cannot be obtained. PAST MEDICAL HISTORY: As mentioned above. FAMILY HISTORY: Noncontributory. SOCIAL HISTORY: [facility] resident. PHYSICAL EXAMINATION: VITAL SIGNS: Show blood pressure of 164/86, pulse is 122, respirations 18, and she is afebrile. HEAD AND NECK: Showed no JVD. LUNGS: Clear. CARDIOVASCULAR: Shows regular S1 and S2 and tachycardic. ABDOMEN: Soft and obese. EXTREMITIES: No pitting edema. LABORATORY AND DIAGNOSTIC DATA: Labs show white count of 21, hemoglobin of 13, hematocrit of 43, and platelet count is 291. Sodium 134, potassium 4.5, BUN of 10, creatinine 1.3, glucose 238. Troponin elevated at 0.435. Urine toxicology is negative. ASSESSMENT AND PLAN: 1. Supraventricular tachycardia with rate of 160 beats per minute. I will start the patient on metoprolol 25 mg p.o. b.i.d. Patient already received adenosine 12 mg x2 as well as Cardizem mg IV with no response. We will get an echocardiogram as well. 2. Troponin elevation, could be due to SVT. Patient currently is nonverbal. We will repeat the EKG and echocardiogram and start the patient on Lopressor and aspirin. 3. Status epilepticus. Further evaluation by Neurology. 4. Elevated white count of 21,000. Thank you very much for allowing me to participate in the care of this patient. Please do not hesitate to contact me for any questions regarding my evaluation. The case was discussed with the emergency room physician as well. Carl Weber M.D. DR: PILY JOB#: [id number] CC:
[2020-11-24 04:00] VITALS: BP 130/87
--- NOTE | 2020-11-24 06:59 | Consultation ---
DATE OF CONSULTATION: 11/21/2020 INFECTIOUS DISEASE CONSULT PRIMARY ATTENDING: Israel Avitia M.D. REASON FOR CONSULT: Sepsis, systemic inflammatory response syndrome. HISTORY OF PRESENT ILLNESS: A 35-year-old female, admitted today from a residential facility because of generalized tonic-clonic seizure. She had leukocytosis of 20.9. Has supraventricular tachycardia with heart rate up to 100. PAST MEDICAL HISTORY: Seizure disorder. The patient had a history of recent admission to [facility] in [place] with seizure. Has developmental delay. ALLERGIES: Allergic to amoxicillin and penicillin. MEDICATIONS: Got a dose of lorazepam, adenosine, Cardizem, phenytoin IV. SOCIAL HISTORY: Single. Recently was sent to nursing facility. I believe the patient was homeless before. Had history of smoking and amphetamine abuse. REVIEW OF SYSTEMS: Unobtainable. PHYSICAL EXAMINATION: VITAL SIGNS: Temperature is 98, pulse 132, blood pressure is 172/74. GENERAL APPEARANCE: Well developed. HEAD AND NECK: [place] conjunctivae. HEART: Tachycardic. LUNGS: Clear. ABDOMEN: Soft and nontender. EXTREMITIES: No edema. NEUROLOGIC: Nonresponsive. LABORATORY AND DIAGNOSTIC DATA: WBC 20.9, hemoglobin 13.5, hematocrit 42.9, and platelets 291. potassium 4.5, chloride 96, bicarb 23, BUN 10, creatinine 1.3, glucose was 238. Troponin was elevated at 0.435. CT scan of the head showed no acute bleeding. 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 IMPRESSION: Systemic inflammatory response syndrome or sepsis. The patient has a breakthrough seizure and has seizure disorder, developmental delay. Has hypertension, hyperglycemia, and elevated troponin. RECOMMENDATION: We will ask for chest x-ray. We will give a dose of Levaquin. We will follow up the clinical course. At the end of my exam, I thank Dr. Avitia for involving me in the care of this patient. Bryan Burrows M.D. DR: PEDRO JOB#: [id number] CC: VALARIE
--- NOTE | 2020-11-24 06:59 | History and Physical Report ---
DATE OF ADMISSION: 11/21/2020 HISTORY OF PRESENT ILLNESS: The patient is admitted for status epilepticus. The patient is having recurrent seizures. She was given low dose of Keppra, Dilantin and Ativan per ER doctor. The patient also had SVT. The patient also has leukocytosis. CT according to the ER doctor of the brain did not show any acute events. The patient also has mental delay and psychosis. The patient is postictal, lethargic, cannot give any history at this point. PAST MEDICAL HISTORY: Mental delay, psychosis, seizure disorder, and constipation. PAST SURGICAL HISTORY: None. ALLERGIES: Penicillin. FAMILY HISTORY: Noncontributory. SOCIAL HISTORY: Does have history of drug abuse. Denies history of alcohol abuse. Denies history of smoking. MEDICATIONS: Keppra, lorazepam, risperidone, and docusate. REVIEW OF SYSTEMS: Unable to obtain, the patient is lethargic. PHYSICAL EXAMINATION: VITAL SIGNS: Temperature 97, pulse is 136, and blood pressure 162/89. HEENT: PERRLA. CHEST: Clear to auscultation. CARDIOVASCULAR: Tachycardic. No murmurs. GASTROINTESTINAL: Soft, nontender, and nondistended. No organomegaly. EXTREMITIES: No edema. Reflexes in both sides. CENTRAL NERVOUS SYSTEM: Generalized weakness. postictal. Not oriented. LABORATORY DATA: CT of the brain does not show anything acute. WBC of 20.9, hemoglobin 13.5, platelets 291. Sodium 134, potassium 4.5, BUN of 10, creatinine of 1.3, and glucose of 238. Troponin of 0.435. ASSESSMENT AND PLAN: SVT, status epilepticus, psychosis, mental delay, elevated and borderline troponin. I have asked Dr. Short, Dr. Ry Garrison, Dr. Bryan Burrows, Dr. Weber, and Dr. Humphrey to see the patient for the management of the above-mentioned abnormal symptoms, abnormal findings, and abnormal laboratories. We will also need to rule out aspiration pneumonia. Israel Avitia M.D. DR: MARYLU JOB#: [id number] CC:
[2020-11-24 07:00] LABS: BASOPHILS % (AUTO) 0.4 % (0.0-2.0); EOSINOPHILS % (AUTO) 1.4 % (0.0-3.0); HEMATOCRIT 45.2 % (37.0-47.0); HEMOGLOBIN 14.3 G/DL (12.0-16.0); LYMPHOCYTES % (AUTO) 25.5 % (20.0-45.0); MEAN CORPUSCULAR VOLUME 90 FL (80-99); MONOCYTES % (AUTO) 6.8 % (1.0-10.0); NEUTROPHILS % (AUTO) 65.9 % (45.0-75.0); PLATELET COUNT 300 K/UL (150-450); RED BLOOD COUNT 5.02 M/UL (4.20-5.40); RED CELL DISTRIBUTION WIDTH 13.9 % (11.6-14.8); WHITE BLOOD COUNT 12.7 K/UL (4.8-10.8)
--- NOTE | 2020-11-24 07:15 | NUR ---
NURSE HAND-OFF REPORT: Important Events on Shift: patient remains stable Patient Status: full code Diet: NPO Pending Orders: [] Pending Results/Labs:[] Pending MD notification:[] Latest Vital Signs: Temperature 97.7 , Pulse 99 , B/P 130 /87 , Respiratory Rate 20 , O2 SAT 99 , Room Air, O2 Flow Rate . Vital Sign Comment: stable EKG Rhythm: Sinus Rhythm Rhythm change?: N MD Notified?: - MD Response: Latest Cervantes Fall Score: 95 Fall Risk: High Risk Safety Measures: Call light Within Reach, Bed Alarm Zone 2, Side Rails Side Rails x3, Bed position Low and Locked. Fall Precautions: Yellow Socks Door Sign Patient Fall Education Report given to JOEL Duron.
--- NOTE | 2020-11-24 07:30 | NUR ---
NURSE NOTES: report received from JOEL Malagon. patient is on bed, awake, communicating, but confused on place and time. patient is on room air, saturations are well on the high 90s to 100s. diet is cardiac soft, mechanical, requested no pepper, one to one feeder. has a left wrist 20 g, patent, intact, saline locked, an a L AC 20 g, patent, intact, running D5 1/2 NS at 50 cc/hr. HOB elevated, bed on lowest position, side rails up and padded, locked, call light within reach. patient will continue to be monitored. will continue plan of care.
[2020-11-24 07:31] LABS: ALANINE AMINOTRANSFERASE 29 U/L (12-78); ALBUMIN 2.9 G/DL (3.4-5.0); ALBUMIN/GLOBULIN RATIO 0.6 (1.0-2.7); ANION GAP 9 mmol/L (5-15); ASPARTATE AMINO TRANSFERASE 37 U/L (15-37); BILIRUBIN,TOTAL 0.3 MG/DL (0.2-1.0); BLOOD UREA NITROGEN 11 mg/dL (7-18); CARBON DIOXIDE 26 MMOL/L (21-32); CHLORIDE 105 MMOL/L (98-107); CHOLESTEROL 166 MG/DL (< 200); CREATININE 0.8 MG/DL (0.55-1.30); PHOSPHORUS 2.6 MG/DL (2.5-4.9); POTASSIUM 3.8 MMOL/L (3.5-5.1); SODIUM 140 MMOL/L (136-145); TRIGLYCERIDES 148 MG/DL (30-150)
[2020-11-24 07:32] LABS: ALKALINE PHOSPHATASE 109 U/L (46-116); HDL CHOLESTEROL 49 MG/DL (40-60)
[2020-11-24 07:46] LABS: CREATINE KINASE 483 U/L (26-140)
[2020-11-24 08:00] VITALS: BP 130/87
--- NOTE | 2020-11-24 08:09 | NUR ---
CASE MANAGEMENT:REVIEW 35 YR OLD FEMALE BIBA FROM [facility] CC: SEIZURE SI: SEIZURE. SVT 98.7 156 16 163/88 95% ON RA WBC+20.9 TROPONIN(+) 0.435 D-DIMER+1.71 IS: IV ADENOSINE IV CARDIZEM IV ATIVAN X2 IV KEPPRA IV DILANTIN 1L NS BOLUS CT HEAD : TO STEP DOWN UNIT DCP; [facility]
[2020-11-24] MEDS: Aspirin Baby 81mg ORAL SCH (08:50)
[2020-11-24] MEDS: Heparin 5000 units/ml inj SUBQ SCH ×2 (08:53→21:56)
[2020-11-24] MEDS: levETIRAcetam 500mg/NS100ml 100 ML IVPB SCH ×2 (08:53→21:58)
[2020-11-24] MEDS: D5NS 1,000 ML IV SCH (10:02)
[2020-11-24] MEDS ORDERED: Varibar Pudding 230ml MC PRN (10:30)
[2020-11-24] MEDS ORDERED: Varibar Honey 250ml MC PRN (10:30)
[2020-11-24] MEDS ORDERED: Varibar Nectar 240ml MC PRN (10:30)
[2020-11-24] MEDS ORDERED: Varibar Thin Liquid powder 148gm MC PRN (10:30)
--- NOTE | 2020-11-24 10:55 | Pulmonology Progress Note ---
Subjective ROS Limited/Unobtainable: Yes Interval Events: no seizure overnight Constitutional: Denies: fever HEENT: Repors: no symptoms Respiratory: Reports: no symptoms Cardiovascular: Reports: no symptoms Gastrointestinal/Abdominal: Reports: no symptoms Allergies: Coded Allergies: PENICILLINS (Verified Allergy, Intermediate, SNEEZING, 03/26/19) Black Pepper (Verified Allergy, Mild, 11/23/20) AMOXICILLIN (Unverified Allergy, Unknown, 11/21/20) Objective Last 24 Hour Vital Signs Date Time Temp Pulse Resp B/P (MAP) Pulse Ox O2 Delivery O2 Flow Rate FiO2 11/24/20 08:52 104 136/93 11/24/20 08:00 99 11/24/20 08:00 Room Air 11/24/20 04:00 99 11/24/20 04:00 97.7 100 20 130/87 (101) 99 11/24/20 04:00 Room Air 11/24/20 00:00 100 11/24/20 00:00 97.7 95 20 126/73 (90) 100 11/24/20 00:00 Room Air 11/23/20 20:00 111 11/23/20 20:00 Room Air 11/23/20 20:00 97.5 112 20 125/83 (97) 100 11/23/20 19:53 108 133/65 11/23/20 16:00 97.9 107 19 130/76 (94) 96 11/23/20 16:00 Room Air 11/23/20 15:32 107 11/23/20 12:00 96 11/23/20 12:00 Room Air 11/23/20 12:00 97.0 103 20 106/70 (82) 96 Intake and Output 11/23/20 11/24/20 19:00 07:00 Intake Total 1460 ml 600 ml Output Total 900 ml 1400 ml Balance 560 ml -800 ml Intake Oral 450 ml IV Total 1010 ml 600 ml Output Urine Total 900 ml 1400 ml General Appearance: no acute distress HEENT: atraumatic Respiratory: lungs clear Cardiovascular: normal rate, regular rhythm Abdomen: soft, non tender Microbiology Date/Time Source Procedure Growth Status 11/22/20 18:00 Urine,Clean Catch Urine Culture - Preliminary NO GROWTH Resulted 11/21/20 14:00 Rectum - Final NO CARBAPENEM-RESISTANT ENTEROBACTERI... Complete 11/21/20 14:00 Rectum VRE Culture - Final NO VANCOMYCIN RESISTANT ENTEROCOCCUS ... Complete 11/21/20 14:00 Nasal Nares MRSA Culture - Final NO METHICILLIN RESISTANT STAPH AUREUS... Complete Laboratory Tests 11/23/20 15:00: Urine Osmolality 441, Urine Random Sodium 47 11/24/20 03:53: White Blood Count 12.7H, Red Blood Count 5.02, Hemoglobin 14.3, Hematocrit 45.2, Mean Corpuscular Volume 90, Mean Corpuscular Hemoglobin 28.5, Mean Corpuscular Hemoglobin Concent 31.7L, Red Cell Distribution Width 13.9, Platelet Count 300, Mean Platelet Volume 6.8, Neutrophils (%) (Auto) 65.9, Lymphocytes (%) (Auto) 25.5, Monocytes (%) (Auto) 6.8, Eosinophils (%) (Auto) 1.4, Basophils (%) (Auto) 0.4, Sodium Level 140, Potassium Level 3.8, Chloride Level 105, Carbon Dioxide Level 26, Anion Gap 9, Blood Urea Nitrogen 11, Creatinine 0.8, Estimat Glomerular Filtration Rate > 60, Glucose Level 124H, Hemoglobin A1c 6.5H, Osmolality 296L, Uric Acid 4.9, Calcium Level 9.0, Phosphorus Level 2.6, Magnesium Level 2.2, Total Bilirubin 0.3, Aspartate Amino Transf (AST/SGOT) 37, Alanine Aminotransferase (ALT/SGPT) 29, Alkaline Phosphatase 109, Total Creatine Kinase 483H, C-Reactive Protein, Quantitative 1.9H, Pro-B-Type Natriuretic Peptide 15, Total Protein 7.7, Albumin 2.9L, Globulin 4.8, Albumin/Globulin Ratio 0.6L, Triglycerides Level 148, Cholesterol Level 166, LDL Cholesterol 89, HDL Cholesterol 49, Cholesterol/HDL Ratio 3.4, Thyroid Stimulating Hormone (TSH) 1.545 Current Medications Medications (Trade) Dose Ordered Sig/Eleanor Route PRN Reason Start Time Stop Time Status Last Admin Dose Admin Acetaminophen (Tylenol) 500 mg Q4H PRN ORAL Mild Pain fever 100.2 11/21/20 15:30 12/21/20 15:29 11/21/20 21:06 Aspirin (ASA) 81 mg DAILY ORAL 11/22/20 09:00 01/06/21 08:59 11/24/20 08:50 Atorvastatin Calcium (Lipitor) 20 mg BEDTIME ORAL 11/21/20 21:00 02/19/21 20:59 11/23/20 19:53 Barium Sulfate (Varibar Honey) 250 ml NOW PRN MC RAD 11/24/20 10:30 11/27/20 10:24 Barium Sulfate (Varibar [place]) 240 ml NOW PRN MC RAD 11/24/20 10:30 11/27/20 10:24 Barium Sulfate (Varibar Pudding) 230 ml NOW PRN MC RAD 11/24/20 10:30 11/27/20 10:24 Barium Sulfate (Varibar Thin Liquid powder) 148 gm NOW PRN MC RAD 11/24/20 10:30 11/27/20 10:24 Dextrose/Sodium Chloride 1,000 ml @ 75 mls/hr [id number] IV 11/23/20 14:45 12/23/20 14:44 11/24/20 10:02 Heparin Sodium (Porcine) (Heparin 5000 units/ml) 5,000 units EVERY 12 HOURS SUBQ 11/22/20 21:00 01/06/21 20:59 11/24/20 08:53 Levetiracetam 100 ml @ 400 mls/hr Q12HR IVPB 11/21/20 21:00 02/19/21 20:59 11/24/20 08:53 Levofloxacin 150 ml @ 100 mls/hr Q24H IVPB 11/22/20 11:00 11/29/20 10:59 11/23/20 11:46 Lorazepam (Ativan 2mg/ml 1ml) 2 mg Q6H PRN IV For Anxiety 11/21/20 19:45 11/28/20 19:44 Metoprolol Tartrate (Lopressor) 25 mg Q12HR ORAL 11/21/20 21:00 02/19/21 20:59 11/24/20 08:52 Assessment/Plan Assessment/Plan 1. Hypertension - cardio following 2. Tachycardia -cardio following - venous duplex US negative for DVT 3. Sepsis/Leukocytosis - ID following - on Abx 4. Elevated troponin -Serial troponin; troponin trending down -Cardio following 5. Risk for aspiration secondary to seizure -Monitor for aspiration risk due to altered mental status - fu CXR if indicated -s/p empiric antibiotics 6. Monitor for hypoxemia 7. Elevated D-dimer - venous duplex US negative for DVT - on heparin subcu BID - on SCD The care for this patient was discussed with my supervising physician. Time spent for this case was approximately 31 minutes. Rich Sarabia Nov 24, 2020 10:55
--- NOTE | 2020-11-24 11:32 | Infectious Diseases Prog Note ---
Assessment/Plan Assessment/Plan A; SIRS,/ Sepsis Breakthrough seizure Pyuria, ? UTI Tachycardia Elevated troponin Developmental delay DM P: Continue Levaquin F/U CBC Subjective ROS Limited/Unobtainable: Yes Constitutional: Reports: other - doing better Respiratory: Reports: dry cough; Denies: shortness of breath Allergies: Coded Allergies: PENICILLINS (Verified Allergy, Intermediate, SNEEZING, 03/26/19) Black Pepper (Verified Allergy, Mild, 11/23/20) AMOXICILLIN (Unverified Allergy, Unknown, 11/21/20) Objective Last 24 Hour Vital Signs Date Time Temp Pulse Resp B/P (MAP) Pulse Ox O2 Delivery O2 Flow Rate FiO2 11/24/20 08:52 104 136/93 11/24/20 08:00 99 11/24/20 08:00 Room Air 11/24/20 04:00 99 11/24/20 04:00 97.7 100 20 130/87 (101) 99 11/24/20 04:00 Room Air 11/24/20 00:00 100 11/24/20 00:00 97.7 95 20 126/73 (90) 100 11/24/20 00:00 Room Air 11/23/20 20:00 111 11/23/20 20:00 Room Air 11/23/20 20:00 97.5 112 20 125/83 (97) 100 11/23/20 19:53 108 133/65 11/23/20 16:00 97.9 107 19 130/76 (94) 96 11/23/20 16:00 Room Air 11/23/20 15:32 107 11/23/20 12:00 96 11/23/20 12:00 Room Air 11/23/20 12:00 97.0 103 20 106/70 (82) 96 Height (Feet): 5 Height (Inches): 8.00 Weight (Pounds): 160 HEENT: mucous membranes moist Respiratory/Chest: lungs clear Cardiovascular: tachycardia Abdomen: soft, non tender Extremities: no edema Neurologic/Psychiatric: alert, responsive Microbiology Date/Time Source Procedure Growth Status 11/22/20 18:00 Urine,Clean Catch Urine Culture - Preliminary NO GROWTH Resulted 11/21/20 14:00 Rectum - Final NO CARBAPENEM-RESISTANT ENTEROBACTERI... Complete 11/21/20 14:00 Rectum VRE Culture - Final NO VANCOMYCIN RESISTANT ENTEROCOCCUS ... Complete 11/21/20 14:00 Nasal Nares MRSA Culture - Final NO METHICILLIN RESISTANT STAPH AUREUS... Complete Laboratory Tests Test 11/23/20 15:00 11/24/20 03:53 Urine Osmolality 441 mOsm/kg (429-449) Urine Random Sodium 47 mmol/L (20-110) White Blood Count 12.7 K/UL (4.8-10.8) H Red Blood Count 5.02 M/UL (4.20-5.40) Hemoglobin 14.3 G/DL (12.0-16.0) Hematocrit 45.2 % (37.0-47.0) Mean Corpuscular Volume 90 FL (80-99) Mean Corpuscular Hemoglobin 28.5 PG (27.0-31.0) Mean Corpuscular Hemoglobin Concent 31.7 G/DL (32.0-36.0) L Red Cell Distribution Width 13.9 % (11.6-14.8) Platelet Count 300 K/UL (150-450) Mean Platelet Volume 6.8 FL (6.5-10.1) Neutrophils (%) (Auto) 65.9 % (45.0-75.0) Lymphocytes (%) (Auto) 25.5 % (20.0-45.0) Monocytes (%) (Auto) 6.8 % (1.0-10.0) Eosinophils (%) (Auto) 1.4 % (0.0-3.0) Basophils (%) (Auto) 0.4 % (0.0-2.0) Sodium Level 140 MMOL/L (136-145) Potassium Level 3.8 MMOL/L (3.5-5.1) Chloride Level 105 MMOL/L (98-107) Carbon Dioxide Level 26 MMOL/L (21-32) Anion Gap 9 mmol/L (5-15) Blood Urea Nitrogen 11 mg/dL (7-18) Creatinine 0.8 MG/DL (0.55-1.30) Estimat Glomerular Filtration Rate > 60 mL/min (>60) Glucose Level 124 MG/DL (74-106) H Hemoglobin A1c 6.5 % (4.3-6.0) H Osmolality 296 mOsm/kg (297-317) L Uric Acid 4.9 MG/DL (2.6-7.2) Calcium Level 9.0 MG/DL (8.5-10.1) Phosphorus Level 2.6 MG/DL (2.5-4.9) Magnesium Level 2.2 MG/DL (1.8-2.4) Total Bilirubin 0.3 MG/DL (0.2-1.0) Aspartate Amino Transf (AST/SGOT) 37 U/L (15-37) Alanine Aminotransferase (ALT/SGPT) 29 U/L (12-78) Alkaline Phosphatase 109 U/L (46-116) Total Creatine Kinase 483 U/L (26-140) H C-Reactive Protein, Quantitative 1.9 mg/dL (0.00-0.90) H Pro-B-Type Natriuretic Peptide 15 pg/mL (0-125) Total Protein 7.7 G/DL (6.4-8.2) Albumin 2.9 G/DL (3.4-5.0) L Globulin 4.8 g/dL Albumin/Globulin Ratio 0.6 (1.0-2.7) L Triglycerides Level 148 MG/DL (30-150) Cholesterol Level 166 MG/DL (< 200) LDL Cholesterol 89 mg/dL (<100) HDL Cholesterol 49 MG/DL (40-60) Cholesterol/HDL Ratio 3.4 (3.3-4.4) Thyroid Stimulating Hormone (TSH) 1.545 uiU/mL (0.358-3.740) Current Medications Medications (Trade) Dose Ordered Sig/Eleanor Route PRN Reason Start Time Stop Time Status Last Admin Dose Admin Acetaminophen (Tylenol) 500 mg Q4H PRN ORAL Mild Pain fever 100.2 11/21/20 15:30 12/21/20 15:29 11/21/20 21:06 Aspirin (ASA) 81 mg DAILY ORAL 11/22/20 09:00 01/06/21 08:59 11/24/20 08:50 Atorvastatin Calcium (Lipitor) 20 mg BEDTIME ORAL 11/21/20 21:00 02/19/21 20:59 11/23/20 19:53 Barium Sulfate (Varibar Honey) 250 ml NOW PRN MC RAD 11/24/20 10:30 11/27/20 10:24 Barium Sulfate (Varibar [place]) 240 ml NOW PRN MC RAD 11/24/20 10:30 11/27/20 10:24 Barium Sulfate (Varibar Pudding) 230 ml NOW PRN MC RAD 11/24/20 10:30 11/27/20 10:24 Barium Sulfate (Varibar Thin Liquid powder) 148 gm NOW PRN RAD 11/24/20 10:30 11/27/20 10:24 Dextrose/Sodium Chloride 1,000 ml @ 75 mls/hr [id number] IV 11/23/20 14:45 12/23/20 14:44 11/24/20 10:02 Heparin Sodium (Porcine) (Heparin 5000 units/ml) 5,000 units EVERY 12 HOURS SUBQ 11/22/20 21:00 01/06/21 20:59 11/24/20 08:53 Levetiracetam 100 ml @ 400 mls/hr Q12HR IVPB 11/21/20 21:00 02/19/21 20:59 11/24/20 08:53 Levofloxacin 150 ml @ 100 mls/hr Q24H IVPB 11/22/20 11:00 11/29/20 10:59 11/24/20 11:03 Lorazepam (Ativan 2mg/ml 1ml) 2 mg Q6H PRN IV For Anxiety 11/21/20 19:45 11/28/20 19:44 Metoprolol Tartrate (Lopressor) 25 mg Q12HR ORAL 11/21/20 21:00 02/19/21 20:59 11/24/20 08:52 Bryan Brurows MD Nov 24, 2020 11:32
[2020-11-24 12:00] VITALS: BP 153/90
--- NOTE | 2020-11-24 13:21 | Nephrology Progress Note ---
Assessment/Plan Problem List: (1) Electrolyte imbalance (2) DMII (diabetes mellitus, type 2) (3) Status epilepticus (4) Elevated CK Assessment Hypomagnesium Hyponatremia Seizure disorder, status epilepticus SVT History of hypertension Tachycardia Developmental delay Diabetes mellitus Plan November 24: Labs reviewed. Abnormal electrolytes now corrected. Continue per current management. Hemoglobin A1c elevated. CPK slightly elevated. Increase IV fluid. Monitor CPK. Previously: IV magnesium sulfate 4 g Check: Urine and serum osmolality, uric acid, TSH, lipid panel as part of hyponatremia work-up Stop hypotonic solution and start isotonic solution Per orders Subjective ROS Limited/Unobtainable: No Constitutional: Reports: malaise Objective Objective Last 24 Hour Vital Signs Date Time Temp Pulse Resp B/P (MAP) Pulse Ox O2 Delivery O2 Flow Rate FiO2 11/24/20 12:00 97.9 98 22 153/90 (111) 100 11/24/20 12:00 Room Air 11/24/20 12:00 100 11/24/20 08:52 104 136/93 11/24/20 08:00 99 11/24/20 08:00 Room Air 11/24/20 08:00 97.7 100 20 130/87 (101) 99 11/24/20 04:00 99 11/24/20 04:00 97.7 100 20 130/87 (101) 99 11/24/20 04:00 Room Air 11/24/20 00:00 100 11/24/20 00:00 97.7 95 20 126/73 (90) 100 11/24/20 00:00 Room Air 11/23/20 20:00 111 11/23/20 20:00 Room Air 11/23/20 20:00 97.5 112 20 125/83 (97) 100 11/23/20 19:53 108 133/65 11/23/20 16:00 97.9 107 19 130/76 (94) 96 11/23/20 16:00 Room Air 11/23/20 15:32 107 Intake and Output 11/23/20 11/24/20 19:00 07:00 Intake Total 1460 ml 600 ml Output Total 900 ml 1400 ml Balance 560 ml -800 ml Intake Oral 450 ml IV Total 1010 ml 600 ml Output Urine Total 900 ml 1400 ml Laboratory Tests 11/23/20 15:00: Urine Osmolality 441, Urine Random Sodium 47 11/24/20 03:53: White Blood Count 12.7H, Red Blood Count 5.02, Hemoglobin 14.3, Hematocrit 45.2, Mean Corpuscular Volume 90, Mean Corpuscular Hemoglobin 28.5, Mean Corpuscular Hemoglobin Concent 31.7L, Red Cell Distribution Width 13.9, Platelet Count 300, Mean Platelet Volume 6.8, Neutrophils (%) (Auto) 65.9, Lymphocytes (%) (Auto) 25.5, Monocytes (%) (Auto) 6.8, Eosinophils (%) (Auto) 1.4, Basophils (%) (Auto) 0.4, Sodium Level 140, Potassium Level 3.8, Chloride Level 105, Carbon Dioxide Level 26, Anion Gap 9, Blood Urea Nitrogen 11, Creatinine 0.8, Estimat Glomerular Filtration Rate > 60, Glucose Level 124H, Hemoglobin A1c 6.5H, Osmolality 296L, Uric Acid 4.9, Calcium Level 9.0, Phosphorus Level 2.6, Magnesium Level 2.2, Total Bilirubin 0.3, Aspartate Amino Transf (AST/SGOT) 37, Alanine Aminotransferase (ALT/SGPT) 29, Alkaline Phosphatase 109, Total Creatine Kinase 483H, C-Reactive Protein, Quantitative 1.9H, Pro-B-Type Natriuretic Peptide 15, Total Protein 7.7, Albumin 2.9L, Globulin 4.8, Albumin/Globulin Ratio 0.6L, Triglycerides Level 148, Cholesterol Level 166, LDL Cholesterol 89, HDL Cholesterol 49, Cholesterol/HDL Ratio 3.4, Thyroid Stimulating Hormone (TSH) 1.545 Height (Feet): 5 Height (Inches): 8.00 Weight (Pounds): 160 General Appearance: no apparent distress, lethargic Cardiovascular: normal rate Respiratory/Chest: decreased breath sounds Abdomen: distended Kerwin Li MD Nov 24, 2020 13:21
--- NOTE | 2020-11-24 13:53 | Neurology Progress Note ---
Interim History Interim History ROS Limited/Unobtainable: No Events: no seizures reported Objective Physical Exam Last Vital Signs Date Time Temp Pulse Resp B/P (MAP) Pulse Ox O2 Delivery O2 Flow Rate FiO2 11/24/20 12:00 97.9 98 22 153/90 (111) 100 11/24/20 12:00 Room Air Laboratory Tests Test 11/23/20 15:00 11/24/20 03:53 Urine Osmolality 441 mOsm/kg (429-449) Urine Random Sodium 47 mmol/L (20-110) White Blood Count 12.7 K/UL (4.8-10.8) H Red Blood Count 5.02 M/UL (4.20-5.40) Hemoglobin 14.3 G/DL (12.0-16.0) Hematocrit 45.2 % (37.0-47.0) Mean Corpuscular Volume 90 FL (80-99) Mean Corpuscular Hemoglobin 28.5 PG (27.0-31.0) Mean Corpuscular Hemoglobin Concent 31.7 G/DL (32.0-36.0) L Red Cell Distribution Width 13.9 % (11.6-14.8) Platelet Count 300 K/UL (150-450) Mean Platelet Volume 6.8 FL (6.5-10.1) Neutrophils (%) (Auto) 65.9 % (45.0-75.0) Lymphocytes (%) (Auto) 25.5 % (20.0-45.0) Monocytes (%) (Auto) 6.8 % (1.0-10.0) Eosinophils (%) (Auto) 1.4 % (0.0-3.0) Basophils (%) (Auto) 0.4 % (0.0-2.0) Sodium Level 140 MMOL/L (136-145) Potassium Level 3.8 MMOL/L (3.5-5.1) Chloride Level 105 MMOL/L (98-107) Carbon Dioxide Level 26 MMOL/L (21-32) Anion Gap 9 mmol/L (5-15) Blood Urea Nitrogen 11 mg/dL (7-18) Creatinine 0.8 MG/DL (0.55-1.30) Estimat Glomerular Filtration Rate > 60 mL/min (>60) Glucose Level 124 MG/DL (74-106) H Hemoglobin A1c 6.5 % (4.3-6.0) H Osmolality 296 mOsm/kg (297-317) L Uric Acid 4.9 MG/DL (2.6-7.2) Calcium Level 9.0 MG/DL (8.5-10.1) Phosphorus Level 2.6 MG/DL (2.5-4.9) Magnesium Level 2.2 MG/DL (1.8-2.4) Total Bilirubin 0.3 MG/DL (0.2-1.0) Aspartate Amino Transf (AST/SGOT) 37 U/L (15-37) Alanine Aminotransferase (ALT/SGPT) 29 U/L (12-78) Alkaline Phosphatase 109 U/L (46-116) Total Creatine Kinase 483 U/L (26-140) H C-Reactive Protein, Quantitative 1.9 mg/dL (0.00-0.90) H Pro-B-Type Natriuretic Peptide 15 pg/mL (0-125) Total Protein 7.7 G/DL (6.4-8.2) Albumin 2.9 G/DL (3.4-5.0) L Globulin 4.8 g/dL Albumin/Globulin Ratio 0.6 (1.0-2.7) L Triglycerides Level 148 MG/DL (30-150) Cholesterol Level 166 MG/DL (< 200) LDL Cholesterol 89 mg/dL (<100) HDL Cholesterol 49 MG/DL (40-60) Cholesterol/HDL Ratio 3.4 (3.3-4.4) Thyroid Stimulating Hormone (TSH) 1.545 uiU/mL (0.358-3.740) Neurologic Exam Objective ROS unable to assess Vitals Reviewed General: Patient is lying down Neuro: Alert to self oriented to self does not remember what happened Comprehension intact. Language parameters intact slow to respond. Crainial nervies II-XI were tested. PEERLA No nystagmus. Tongue is midline. Facial is symmetric. hearing intact Motor: No invountary movements, bilateral Upper extremities 4/5 Lower extremities 4/5. Sensation: intact Gait not tested Postictal Impression/Recommendations Status: progressing Diagnostic Impression IMAGING: CT HEAD:Findings: No acute intracranial hemorrhage or edema, mass effect, nor midline shift. Normal [place]-white differentiation. There is abnormal configuration of the posterior lateral ventricles. These appear more normal anteriorly. Size of the ventricles and extra axial CSF spaces. Visualized orbits and sinuses are unremarkable. The mastoids are clear. The calvarium is intact. 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 Seizure, she is in post ictal phase responds slowly to questions --> continue keppra and ativan, CT Head reviewed --> will review records from [facility], further rec's to follow-continue as is for now 2. Methamphetamine abuse 3. Obesty 4. Schizophrenia 5. Hyupoxia --> Pulmo on board Lia Coburn NP Nov 24, 2020 13:53
--- NOTE | 2020-11-24 15:13 | Cardiac Electrophysiology PN ---
Assessment/Plan Assessment/Plan 1. HTN On Lopressor 25 po bid. EF 65% 2. SVT better with Lopressor. S/P Adenosine 12 mg x2 and iv cardizem with no response 3. Hyperlipidemia on Lipitor 4. Seizure on keppra and ativan, CT Head reviewed 5. Methamphetamine abuse 6. Obesty 7. Schizophrenia DW RN Subjective Subjective No CP or SOB. on RA. Has mild abdominal pain Objective Last 24 Hour Vital Signs Date Time Temp Pulse Resp B/P (MAP) Pulse Ox O2 Delivery O2 Flow Rate FiO2 11/24/20 12:00 97.9 98 22 153/90 (111) 100 11/24/20 12:00 Room Air 11/24/20 12:00 100 11/24/20 08:52 104 136/93 11/24/20 08:00 99 11/24/20 08:00 Room Air 11/24/20 08:00 97.7 100 20 130/87 (101) 99 11/24/20 04:00 99 11/24/20 04:00 97.7 100 20 130/87 (101) 99 11/24/20 04:00 Room Air 11/24/20 00:00 100 11/24/20 00:00 97.7 95 20 126/73 (90) 100 11/24/20 00:00 Room Air 11/23/20 20:00 111 11/23/20 20:00 Room Air 11/23/20 20:00 97.5 112 20 125/83 (97) 100 11/23/20 19:53 108 133/65 11/23/20 16:00 97.9 107 19 130/76 (94) 96 11/23/20 16:00 Room Air 11/23/20 15:32 107 Intake and Output 11/23/20 11/24/20 19:00 07:00 Intake Total 1460 ml 600 ml Output Total 900 ml 1400 ml Balance 560 ml -800 ml Intake Oral 450 ml IV Total 1010 ml 600 ml Output Urine Total 900 ml 1400 ml Laboratory Tests Test 11/24/20 03:53 White Blood Count 12.7 K/UL (4.8-10.8) H Red Blood Count 5.02 M/UL (4.20-5.40) Hemoglobin 14.3 G/DL (12.0-16.0) Hematocrit 45.2 % (37.0-47.0) Mean Corpuscular Volume 90 FL (80-99) Mean Corpuscular Hemoglobin 28.5 PG (27.0-31.0) Mean Corpuscular Hemoglobin Concent 31.7 G/DL (32.0-36.0) L Red Cell Distribution Width 13.9 % (11.6-14.8) Platelet Count 300 K/UL (150-450) Mean Platelet Volume 6.8 FL (6.5-10.1) Neutrophils (%) (Auto) 65.9 % (45.0-75.0) Lymphocytes (%) (Auto) 25.5 % (20.0-45.0) Monocytes (%) (Auto) 6.8 % (1.0-10.0) Eosinophils (%) (Auto) 1.4 % (0.0-3.0) Basophils (%) (Auto) 0.4 % (0.0-2.0) Sodium Level 140 MMOL/L (136-145) Potassium Level 3.8 MMOL/L (3.5-5.1) Chloride Level 105 MMOL/L (98-107) Carbon Dioxide Level 26 MMOL/L (21-32) Anion Gap 9 mmol/L (5-15) Blood Urea Nitrogen 11 mg/dL (7-18) Creatinine 0.8 MG/DL (0.55-1.30) Estimat Glomerular Filtration Rate > 60 mL/min (>60) Glucose Level 124 MG/DL (74-106) H Hemoglobin A1c 6.5 % (4.3-6.0) H Osmolality 296 mOsm/kg (297-317) L Uric Acid 4.9 MG/DL (2.6-7.2) Calcium Level 9.0 MG/DL (8.5-10.1) Phosphorus Level 2.6 MG/DL (2.5-4.9) Magnesium Level 2.2 MG/DL (1.8-2.4) Total Bilirubin 0.3 MG/DL (0.2-1.0) Aspartate Amino Transf (AST/SGOT) 37 U/L (15-37) Alanine Aminotransferase (ALT/SGPT) 29 U/L (12-78) Alkaline Phosphatase 109 U/L (46-116) Total Creatine Kinase 483 U/L (26-140) H C-Reactive Protein, Quantitative 1.9 mg/dL (0.00-0.90) H Pro-B-Type Natriuretic Peptide 15 pg/mL (0-125) Total Protein 7.7 G/DL (6.4-8.2) Albumin 2.9 G/DL (3.4-5.0) L Globulin 4.8 g/dL Albumin/Globulin Ratio 0.6 (1.0-2.7) L Triglycerides Level 148 MG/DL (30-150) Cholesterol Level 166 MG/DL (< 200) LDL Cholesterol 89 mg/dL (<100) HDL Cholesterol 49 MG/DL (40-60) Cholesterol/HDL Ratio 3.4 (3.3-4.4) Thyroid Stimulating Hormone (TSH) 1.545 uiU/mL (0.358-3.740) Microbiology Date/Time Source Procedure Growth Status 11/22/20 18:00 Urine,Clean Catch Urine Culture - Preliminary NO GROWTH Resulted Objective General Appearance: no acute distress HEENT: atraumatic Respiratory: lungs clear Cardiovascular: normal rate, regular rhythm Abdomen: soft, non tender Carl Weber MD Nov 24, 2020 15:13
--- NOTE | 2020-11-24 15:36 | NUR ---
NURSE NOTES: covid-19 swab collected. transported to lab.
[2020-11-24 16:00] VITALS: BP 123/85
--- NOTE | 2020-11-24 16:34 | NUR ---
Speech Pathology Note (Bedside Dysphagia Evaluation) Brief note: Ms. Michele is an 35 year old female admitted from [facility] on 11/21/2020 for seizure. She was recently hospitalized at [facility] from 09/15/2021~11/20/2020 and subsequently discharged to [facility] on 11/21/2020. The CT head negative is negative for acute process, CXR negative for acute cardiopulmonary process. The labs were remarkable for leukocytosis 20.9k, BUN/Creatine 10/1.3, and LFT is unremarkable. Current labs are improved to WBC trending down to 12.7k from 20.9, BUN improved to 11/0.8. She is currently tolerating on PO diet well. The vital signs are unremarkable. PMH: Schizophrenia, Meth abuse, Seizure and obesity/ Findings: Ms. Michele are alert and speech is clear and voice is normal. She stated " I don't know", or " I can't do it." for the most of my questions. She is able to follow commands. She moves all extremities well spontaneously. She was supported for water. She was able to tolerate without dysphagia, odynophagia or overt s.s of aspiration. Interpretation: 1. Functional swallow Plan: 1. Regular diet and thin liquid I will sign off from speech service at this time. Renate Renteria
--- NOTE | 2020-11-24 17:21 | NUR ---
NURSE HAND-OFF REPORT: Important Events on Shift: stable Patient Status: Diet: cardiac mechanical soft Orders: Pending Results/Labs: Pending MD notification: Latest Vital Signs: Temperature 97.9 , Pulse 98 , B/P 153 /90 , Respiratory Rate 22 , O2 SAT 100 , Room Air, O2 Flow Rate . Vital Sign Comment: EKG Rhythm: Sinus Tachycardia Rhythm change?: N MD Notified?: - MD Response: Latest Cervantes Fall Score: 95 Fall Risk: High Risk Safety Measures: Call light Within Reach, Bed Alarm Zone 2, Side Rails Side Rails x3, Bed position Low and Locked. Fall Precautions: Yellow Socks Door Sign Patient Fall Education Report given to JOEL Gale.
--- NOTE | 2020-11-24 17:21 | NUR ---
NURSE NOTES: Patient transferred to Tele ([id number]).
--- NOTE | 2020-11-24 17:35 | NUR ---
NURSE NOTES: pt. admitted to the unit in stable condition. pt on compliance monitor, no signs of cardiac or respiratory distress. V/S 164/99, O296 R18 T97.7 HR109, pt complains of stomach ache. Bed locked and in lowest position, call light within reach. side rails padded. side rails up x2 for safety also bed alarm is on. Will continue to monitor pt
--- NOTE | 2020-11-24 18:45 | General Progress Note ---
Subjective ROS Limited/Unobtainable: Yes Allergies: Coded Allergies: PENICILLINS (Verified Allergy, Intermediate, SNEEZING, 03/26/19) Black Pepper (Verified Allergy, Mild, 11/23/20) AMOXICILLIN (Unverified Allergy, Unknown, 11/21/20) Objective Last 24 Hour Vital Signs Date Time Temp Pulse Resp B/P (MAP) Pulse Ox O2 Delivery O2 Flow Rate FiO2 11/24/20 16:00 Room Air 11/24/20 16:00 98.2 105 23 123/85 (98) 100 11/24/20 16:00 106 11/24/20 12:00 97.9 98 22 153/90 (111) 100 11/24/20 12:00 Room Air 11/24/20 12:00 100 11/24/20 08:52 104 136/93 11/24/20 08:00 99 11/24/20 08:00 Room Air 11/24/20 08:00 97.7 100 20 130/87 (101) 99 11/24/20 04:00 99 11/24/20 04:00 97.7 100 20 130/87 (101) 99 11/24/20 04:00 Room Air 11/24/20 00:00 100 11/24/20 00:00 97.7 95 20 126/73 (90) 100 11/24/20 00:00 Room Air 11/23/20 20:00 111 11/23/20 20:00 Room Air 11/23/20 20:00 97.5 112 20 125/83 (97) 100 11/23/20 19:53 108 133/65 Intake and Output 11/23/20 11/24/20 19:00 07:00 Intake Total 1460 ml 600 ml Output Total 900 ml 1400 ml Balance 560 ml -800 ml Intake Oral 450 ml IV Total 1010 ml 600 ml Output Urine Total 900 ml 1400 ml Laboratory Tests 11/24/20 03:53: White Blood Count 12.7H, Red Blood Count 5.02, Hemoglobin 14.3, Hematocrit 45.2, Mean Corpuscular Volume 90, Mean Corpuscular Hemoglobin 28.5, Mean Corpuscular Hemoglobin Concent 31.7L, Red Cell Distribution Width 13.9, Platelet Count 300, Mean Platelet Volume 6.8, Neutrophils (%) (Auto) 65.9, Lymphocytes (%) (Auto) 25.5, Monocytes (%) (Auto) 6.8, Eosinophils (%) (Auto) 1.4, Basophils (%) (Auto) 0.4, Sodium Level 140, Potassium Level 3.8, Chloride Level 105, Carbon Dioxide Level 26, Anion Gap 9, Blood Urea Nitrogen 11, Creatinine 0.8, Estimat Glomerular Filtration Rate > 60, Glucose Level 124H, Hemoglobin A1c 6.5H, Osmolality 296L, Uric Acid 4.9, Calcium Level 9.0, Phosphorus Level 2.6, Magnesium Level 2.2, Total Bilirubin 0.3, Aspartate Amino Transf (AST/SGOT) 37, Alanine Aminotransferase (ALT/SGPT) 29, Alkaline Phosphatase 109, Total Creatine Kinase 483H, C-Reactive Protein, Quantitative 1.9H, Pro-B-Type Natriuretic Peptide 15, Total Protein 7.7, Albumin 2.9L, Globulin 4.8, Albumin/Globulin Ratio 0.6L, Triglycerides Level 148, Cholesterol Level 166, LDL Cholesterol 89, HDL Cholesterol 49, Cholesterol/HDL Ratio 3.4, Thyroid Stimulating Hormone (TSH) 1.545 Height (Feet): 5 Height (Inches): 8.00 Weight (Pounds): 160 Assessment/Plan Problem List: (1) Seizure disorder ICD Codes: G40.909 - Epilepsy, unspecified, not intractable, without status epilepticus SNOMED: 465864041 (2) SVT (supraventricular tachycardia) ICD Codes: I47.1 - Supraventricular tachycardia SNOMED: 1168413 (3) Status epilepticus ICD Codes: G40.901 - Epilepsy, unspecified, not intractable, with status epilepticus SNOMED: 903025760 Status: progressing Assessment/Plan: svt resolved mental delay recurrent seizure r/o aspiration pna leukocytosis is improving reviewed chart Israel Avitia MD Nov 24, 2020 18:45
--- NOTE | 2020-11-24 19:26 | Psychiatric Progress Note ---
Psychiatry Progress Note Psychiatry Progress Note Medications Current Medications Medications (Trade) Dose Ordered Sig/Eleanor Route PRN Reason Start Time Stop Time Status Last Admin Dose Admin Acetaminophen (Tylenol) 500 mg Q4H PRN ORAL Mild Pain fever 100.2 11/21/20 15:30 12/21/20 15:29 11/21/20 21:06 Aspirin (ASA) 81 mg DAILY ORAL 11/22/20 09:00 01/06/21 08:59 11/24/20 08:50 Atorvastatin Calcium (Lipitor) 20 mg BEDTIME ORAL 11/21/20 21:00 02/19/21 20:59 11/23/20 19:53 Barium Sulfate (Varibar Honey) 250 ml NOW PRN MC RAD 11/24/20 10:30 11/27/20 10:24 Barium Sulfate (Varibar [place]) 240 ml NOW PRN MC RAD 11/24/20 10:30 11/27/20 10:24 Barium Sulfate (Varibar Pudding) 230 ml NOW PRN MC RAD 11/24/20 10:30 11/27/20 10:24 Barium Sulfate (Varibar Thin Liquid powder) 148 gm NOW PRN MC RAD 11/24/20 10:30 11/27/20 10:24 Dextrose/Sodium Chloride 1,000 ml @ 75 mls/hr [id number] IV 11/23/20 14:45 12/23/20 14:44 11/24/20 10:02 Heparin Sodium (Porcine) (Heparin 5000 units/ml) 5,000 units EVERY 12 HOURS SUBQ 11/22/20 21:00 01/06/21 20:59 11/24/20 08:53 Levetiracetam 100 ml @ 400 mls/hr Q12HR IVPB 11/21/20 21:00 02/19/21 20:59 11/24/20 08:53 Levofloxacin 150 ml @ 100 mls/hr Q24H IVPB 11/22/20 11:00 11/29/20 10:59 11/24/20 11:03 Lorazepam (Ativan 2mg/ml 1ml) 2 mg Q6H PRN IV For Anxiety 11/21/20 19:45 11/28/20 19:44 Metoprolol Tartrate (Lopressor) 25 mg Q12HR ORAL 11/21/20 21:00 02/19/21 20:59 11/24/20 08:52 Allergies: Coded Allergies: PENICILLINS (Verified Allergy, Intermediate, SNEEZING, 03/26/19) Black Pepper (Verified Allergy, Mild, 11/23/20) AMOXICILLIN (Unverified Allergy, Unknown, 11/21/20) Objective Data Height (Feet): 5 Height (Inches): 8.00 Weight (Pounds): 160 General Appearance: no apparent distress, lethargic Assessment/Plan Status: progressing Mary Humphrey MD Nov 24, 2020 19:26
--- NOTE | 2020-11-24 19:52 | NUR ---
NURSE HAND-OFF REPORT: Important Events on Shift:[] pt stable Patient Status: []full code Diet: []mechanical soft Pending Orders: [] Pending Results/Labs:[] Pending MD notification:[] Latest Vital Signs: Temperature 98.2 , Pulse 106 , B/P 123 /85 , Respiratory Rate 23 , O2 SAT 100 , Room Air, O2 Flow Rate . Vital Sign Comment: [] EKG Rhythm: Sinus Tachycardia Rhythm change?: N MD Notified?: - MD Response: Latest Cervantes Fall Score: 95 Fall Risk: High Risk Safety Measures: Call light Within Reach, Bed Alarm Zone 2, Side Rails Side Rails x3, Bed position Low and Locked. Fall Precautions: Y Yellow Socks y Door Sign Patient Fall Education Report given to []. Tristan Rosa/JOEL
--- NOTE | 2020-11-24 19:55 | NUR ---
NURSE NOTES: Patient received from JOEL Gale. Patient is A/O x 1. Patient is on room air with no signs of acute respiratory distress noted. Patient has a purewick. Patient has a 20 gauge IV on his left AC running D5 1/2 NS at 50 ml/hr. Bed is in the lowest position and locked, call light within reach. Will continue to monitor.
[2020-11-24 20:00] VITALS: BP 151/78
--- NOTE | 2020-11-24 20:14 | Consultation ---
DATE OF CONSULTATION: 11/24/2020 HISTORY OF PRESENT ILLNESS: This is a 35-year-old woman with a history of seizure disorder, methamphetamine abuse, who has been admitted to the hospital for weakness, tonic-clonic seizure. The patient also has a history of psychiatric disorder including depression and anxiety, presents with depressed mood, anhedonia, anxiety, and difficulty sleeping. PAST PSYCHIATRIC HISTORY: Significant for schizophrenia, several psychiatric hospitalizations. PAST MEDICAL HISTORY: As above. ALLERGIES: Amoxicillin and penicillin. SUBSTANCE ABUSE HISTORY: Significant for methamphetamines. SOCIAL HISTORY: The patient is homeless and is awaiting discharge. MENTAL STATUS EXAMINATION: The patient is alert and oriented times self, place, and situation. Mood is anxious. Affect is blunted. Thought process is concrete. Thought content, no suicidal or homicidal ideation. Cognition is intact. Insight and judgment are fair. ASSESSMENT AND PLAN: Schizophrenia. The patient was seen yesterday on 11/23/2020. Continue to follow and readjust the medications. Mary Humphrey M.D. DR: REGI JOB#: [id number] CC:
[2020-11-24] MEDS: Atorvastatin 20mg tab ORAL SCH (21:57)
[2020-11-25] VITALS: BP 143/93
[2020-11-25] MEDS: D5NS 1,000 ML IV SCH (00:58)
[2020-11-25 04:00] VITALS: BP 134/77
--- NOTE | 2020-11-25 07:20 | NUR ---
NURSE NOTES: Received patient report from JOEL Vale. Patient is AO x1 in bed asleep at this time. PAtient on RA, breathing is even and unlabored with no signs of respiratory distress. atient has a 20 gauge IV on his left AC running D5 1/2 NS at 50 ml/hr, patent and intact. No pain or discomfort noted at this time. Bed in lowest position, locked with side rails x3 up. Call light within reach.
--- NOTE | 2020-11-25 07:36 | NUR ---
NURSE HAND-OFF REPORT: Important Events on Shift:[] Patient Status: [Stable] Diet: [Renal Mechanical soft diet] Pending Orders: [] Pending Results/Labs:[] Pending MD notification:[] Latest Vital Signs: Temperature 97.1 , Pulse 98 , B/P 134 /77 , Respiratory Rate 18 , O2 SAT 100 , Room Air, O2 Flow Rate . Vital Sign Comment: [] EKG Rhythm: Sinus Rhythm Rhythm change?: N MD Notified?: N - MD Response: Latest Cervantes Fall Score: 95 Fall Risk: High Risk Safety Measures: Call light Within Reach, Bed Alarm Zone 2, Side Rails Side Rails x3, Bed position Low and Locked. Fall Precautions: Yellow Socks Door Sign Patient Fall Education Report given to [JOEL Blanchard].
[2020-11-25 08:00] VITALS: BP 143/78
[2020-11-25] MEDS: Aspirin Baby 81mg ORAL SCH (08:57)
[2020-11-25] MEDS: levETIRAcetam 500mg/NS100ml 100 ML IVPB SCH ×2 (08:57→20:36)
[2020-11-25] MEDS: Heparin 5000 units/ml inj SUBQ SCH ×2 (08:58→20:36)
--- NOTE | 2020-11-25 08:59 | Cardiac Electrophysiology PN ---
Assessment/Plan Assessment/Plan 1. HTN On Lopressor 25 po bid. EF 65%. PRN Clonidine was added 2. SVT better with Lopressor. S/P Adenosine 12 mg x2 and iv cardizem with no response 3. Hyperlipidemia on Lipitor 4. Seizure on Keppra and Ativan 5. Methamphetamine abuse 6. Obesity 7. Schizophrenia DW RN Subjective Subjective No CP or SOB on RA. Covid PCR from yesterday is pending Objective Last 24 Hour Vital Signs Date Time Temp Pulse Resp B/P (MAP) Pulse Ox O2 Delivery O2 Flow Rate FiO2 11/25/20 04:00 Room Air 11/25/20 04:00 95 11/25/20 04:00 97.1 98 18 134/77 (96) 100 11/25/20 00:00 Room Air 11/25/20 00:00 97.7 98 17 143/93 (110) 97 11/25/20 00:00 94 11/24/20 21:57 110 151/78 11/24/20 20:00 101 11/24/20 20:00 Room Air 11/24/20 20:00 96.1 110 20 151/78 (102) 97 11/24/20 16:00 Room Air 11/24/20 16:00 98.2 105 23 123/85 (98) 100 11/24/20 16:00 106 11/24/20 12:00 97.9 98 22 153/90 (111) 100 11/24/20 12:00 Room Air 11/24/20 12:00 100 Intake and Output 11/24/20 11/25/20 19:00 07:00 Intake Total 240 ml Output Total 5000 ml Balance -4760 ml Other 240 ml Output Urine Total 5000 ml # Voids 1 2 Microbiology Date/Time Source Procedure Growth Status 11/22/20 18:00 Urine,Clean Catch Urine Culture - Preliminary Gram Positive Cocci Resulted Objective General Appearance: no acute distress HEENT: atraumatic Respiratory: lungs clear Cardiovascular: normal rate, regular rhythm Abdomen: soft, non tender Carl Weber MD Nov 25, 2020 08:59
[2020-11-25 09:35] LABS: BASOPHILS % (AUTO) 0.9 % (0.0-2.0); EOSINOPHILS % (AUTO) 1.1 % (0.0-3.0); HEMATOCRIT 44.4 % (37.0-47.0); HEMOGLOBIN 14.4 G/DL (12.0-16.0); LYMPHOCYTES % (AUTO) 22.3 % (20.0-45.0); MEAN CORPUSCULAR VOLUME 90 FL (80-99); MONOCYTES % (AUTO) 6.4 % (1.0-10.0); NEUTROPHILS % (AUTO) 69.2 % (45.0-75.0); PLATELET COUNT 309 K/UL (150-450); RED BLOOD COUNT 4.92 M/UL (4.20-5.40); RED CELL DISTRIBUTION WIDTH 13.8 % (11.6-14.8); WHITE BLOOD COUNT 9.7 K/UL (4.8-10.8)
[2020-11-25 09:49] LABS: ALANINE AMINOTRANSFERASE 46 U/L (12-78); ALBUMIN 2.9 G/DL (3.4-5.0); ALBUMIN/GLOBULIN RATIO 0.6 (1.0-2.7); ALKALINE PHOSPHATASE 125 U/L (46-116); ANION GAP 8 mmol/L (5-15); ASPARTATE AMINO TRANSFERASE 47 U/L (15-37); BILIRUBIN,TOTAL 0.2 MG/DL (0.2-1.0); BLOOD UREA NITROGEN 9 mg/dL (7-18); CALCIUM 9.2 MG/DL (8.5-10.1); CARBON DIOXIDE 28 MMOL/L (21-32); CHLORIDE 109 MMOL/L (98-107); CREATINE KINASE 393 U/L (26-308); CREATININE 0.8 MG/DL (0.55-1.30); PHOSPHORUS 3.3 MG/DL (2.5-4.9); POTASSIUM 3.6 MMOL/L (3.5-5.1); SODIUM 145 MMOL/L (136-145)
[2020-11-25 12:00] VITALS: BP 143/81
--- NOTE | 2020-11-25 12:26 | Pulmonology Progress Note ---
Subjective ROS Limited/Unobtainable: Yes Interval Events: no seizure overnight Constitutional: Reports: other - doing better HEENT: Repors: no symptoms Respiratory: Reports: no symptoms Cardiovascular: Reports: no symptoms Gastrointestinal/Abdominal: Reports: no symptoms Allergies: Coded Allergies: PENICILLINS (Verified Allergy, Intermediate, SNEEZING, 03/26/19) Black Pepper (Verified Allergy, Mild, 11/23/20) AMOXICILLIN (Unverified Allergy, Unknown, 11/21/20) Objective Last 24 Hour Vital Signs Date Time Temp Pulse Resp B/P (MAP) Pulse Ox O2 Delivery O2 Flow Rate FiO2 11/25/20 12:00 98.8 92 20 143/81 (101) 100 11/25/20 08:57 90 143/80 11/25/20 08:00 98.2 101 20 143/78 (99) 100 11/25/20 08:00 Room Air 11/25/20 08:00 117 11/25/20 04:00 Room Air 11/25/20 04:00 95 11/25/20 04:00 97.1 98 18 134/77 (96) 100 11/25/20 00:00 Room Air 11/25/20 00:00 97.7 98 17 143/93 (110) 97 11/25/20 00:00 94 11/24/20 21:57 110 151/78 11/24/20 20:00 101 11/24/20 20:00 Room Air 11/24/20 20:00 96.1 110 20 151/78 (102) 97 11/24/20 16:00 Room Air 11/24/20 16:00 98.2 105 23 123/85 (98) 100 11/24/20 16:00 106 Intake and Output 11/24/20 11/25/20 19:00 07:00 Intake Total 240 ml Output Total 5000 ml Balance -4760 ml Other 240 ml Output Urine Total 5000 ml # Voids 1 2 General Appearance: no acute distress HEENT: atraumatic Respiratory: lungs clear Cardiovascular: normal rate, regular rhythm Abdomen: soft, non tender Microbiology Date/Time Source Procedure Growth Status 11/22/20 18:00 Urine,Clean Catch Urine Culture - Preliminary Gram Positive Cocci Resulted Laboratory Tests 11/25/20 09:05: White Blood Count 9.7, Red Blood Count 4.92, Hemoglobin 14.4, Hematocrit 44.4, Mean Corpuscular Volume 90, Mean Corpuscular Hemoglobin 29.3, Mean Corpuscular Hemoglobin Concent 32.5, Red Cell Distribution Width 13.8, Platelet Count 309, Mean Platelet Volume 7.8, Neutrophils (%) (Auto) 69.2, Lymphocytes (%) (Auto) 22.3, Monocytes (%) (Auto) 6.4, Eosinophils (%) (Auto) 1.1, Basophils (%) (Auto) 0.9, Sodium Level 145, Potassium Level 3.6, Chloride Level 109H, Carbon Dioxide Level 28, Anion Gap 8, Blood Urea Nitrogen 9, Creatinine 0.8, Estimat Glomerular Filtration Rate > 60, Glucose Level 136H, Calcium Level 9.2, Phosphorus Level 3.3, Magnesium Level 1.8, Total Bilirubin 0.2, Aspartate Amino Transf (AST/SGOT) 47H, Alanine Aminotransferase (ALT/SGPT) 46, Alkaline Phosphatase 125H, Total Creatine Kinase 393H, C-Reactive Protein, Quantitative 1.2H, Total Protein 7.6, Albumin 2.9L, Globulin 4.7, Albumin/Globulin Ratio 0.6L Current Medications Medications (Trade) Dose Ordered Sig/Eleanor Route PRN Reason Start Time Stop Time Status Last Admin Dose Admin Acetaminophen (Tylenol) 500 mg Q4H PRN ORAL Mild Pain fever 100.2 11/21/20 15:30 12/21/20 15:29 11/21/20 21:06 Aspirin (ASA) 81 mg DAILY ORAL 11/22/20 09:00 01/06/21 08:59 11/25/20 08:57 Atorvastatin Calcium (Lipitor) 20 mg BEDTIME ORAL 11/21/20 21:00 02/19/21 20:59 11/24/20 21:57 Barium Sulfate (Varibar Honey) 250 ml NOW PRN MC RAD 11/24/20 10:30 11/27/20 10:24 Barium Sulfate (Varibar [place]) 240 ml NOW PRN MC RAD 11/24/20 10:30 11/27/20 10:24 Barium Sulfate (Varibar Pudding) 230 ml NOW PRN MC RAD 11/24/20 10:30 11/27/20 10:24 Barium Sulfate (Varibar Thin Liquid powder) 148 gm NOW PRN MC RAD 11/24/20 10:30 11/27/20 10:24 Clonidine HCl (Catapres Tab) 0.1 mg Q2H PRN ORAL SBP > 170mmHg 11/25/20 10:45 02/23/21 10:44 Dextrose/Sodium Chloride 1,000 ml @ 75 mls/hr [id number] IV 11/23/20 14:45 12/23/20 14:44 11/25/20 00:58 Heparin Sodium (Porcine) (Heparin 5000 units/ml) 5,000 units EVERY 12 HOURS SUBQ 11/22/20 21:00 01/06/21 20:59 11/25/20 08:58 Levetiracetam 100 ml @ 400 mls/hr Q12HR IVPB 11/21/20 21:00 02/19/21 20:59 11/25/20 08:57 Levofloxacin 150 ml @ 100 mls/hr Q24H IVPB 11/22/20 11:00 11/29/20 10:59 11/25/20 12:07 Lorazepam (Ativan 2mg/ml 1ml) 2 mg Q6H PRN IV For Anxiety 11/21/20 19:45 11/28/20 19:44 Metoprolol Tartrate (Lopressor) 25 mg Q12HR ORAL 11/21/20 21:00 02/19/21 20:59 11/25/20 08:57 Assessment/Plan Assessment/Plan 1. Hypertension - cardio following 2. Tachycardia -cardio following - venous duplex US negative for DVT 3. Sepsis/Leukocytosis - ID following - on Abx 4. Elevated troponin -Serial troponin; troponin trending down -Cardio following 5. Risk for aspiration secondary to seizure -Monitor for aspiration risk due to altered mental status - fu CXR if indicated -s/p empiric antibiotics 6. Monitor for hypoxemia 7. Elevated D-dimer - venous duplex US negative for DVT - on heparin subcu BID - on SCD The care for this patient was discussed with my supervising physician. Time spent for this case was approximately 31 minutes. Rich Sarabia Nov 25, 2020 12:26
--- NOTE | 2020-11-25 12:35 | Nephrology Progress Note ---
Assessment/Plan Problem List: (1) Electrolyte imbalance (2) DMII (diabetes mellitus, type 2) (3) Status epilepticus (4) Elevated CK Assessment Hypomagnesium Hyponatremia Seizure disorder, status epilepticus SVT History of hypertension Tachycardia Developmental delay Diabetes mellitus Plan November 25: Labs reviewed. IV fluids stopped. CPK lowering. Continue p.o. liquid intake. November 24: Labs reviewed. Abnormal electrolytes now corrected. Continue per current management. Hemoglobin A1c elevated. CPK slightly elevated. Increase IV fluid. Monitor CPK. Previously: IV magnesium sulfate 4 g Check: Urine and serum osmolality, uric acid, TSH, lipid panel as part of hyponatremia work-up Stop hypotonic solution and start isotonic solution Per orders Subjective ROS Limited/Unobtainable: No Constitutional: Reports: malaise, weakness Objective Objective Last 24 Hour Vital Signs Date Time Temp Pulse Resp B/P (MAP) Pulse Ox O2 Delivery O2 Flow Rate FiO2 11/25/20 12:00 98.8 92 20 143/81 (101) 100 11/25/20 08:57 90 143/80 11/25/20 08:00 98.2 101 20 143/78 (99) 100 11/25/20 08:00 Room Air 11/25/20 08:00 117 11/25/20 04:00 Room Air 11/25/20 04:00 95 11/25/20 04:00 97.1 98 18 134/77 (96) 100 11/25/20 00:00 Room Air 11/25/20 00:00 97.7 98 17 143/93 (110) 97 11/25/20 00:00 94 11/24/20 21:57 110 151/78 11/24/20 20:00 101 11/24/20 20:00 Room Air 11/24/20 20:00 96.1 110 20 151/78 (102) 97 11/24/20 16:00 Room Air 11/24/20 16:00 98.2 105 23 123/85 (98) 100 11/24/20 16:00 106 Intake and Output 11/24/20 11/25/20 19:00 07:00 Intake Total 240 ml Output Total 5000 ml Balance -4760 ml Other 240 ml Output Urine Total 5000 ml # Voids 1 2 Current Medications Medications (Trade) Dose Ordered Sig/Eleanor Route PRN Reason Start Time Stop Time Status Last Admin Dose Admin Acetaminophen (Tylenol) 500 mg Q4H PRN ORAL Mild Pain fever 100.2 11/21/20 15:30 12/21/20 15:29 11/21/20 21:06 Aspirin (ASA) 81 mg DAILY ORAL 11/22/20 09:00 01/06/21 08:59 11/25/20 08:57 Atorvastatin Calcium (Lipitor) 20 mg BEDTIME ORAL 11/21/20 21:00 02/19/21 20:59 11/24/20 21:57 Barium Sulfate (Varibar Honey) 250 ml NOW PRN MC RAD 11/24/20 10:30 11/27/20 10:24 Barium Sulfate (Varibar [employer]) 240 ml NOW PRN MC RAD 11/24/20 10:30 11/27/20 10:24 Barium Sulfate (Varibar Pudding) 230 ml NOW PRN MC RAD 11/24/20 10:30 11/27/20 10:24 Barium Sulfate (Varibar Thin Liquid powder) 148 gm NOW PRN MC RAD 11/24/20 10:30 11/27/20 10:24 Clonidine HCl (Catapres Tab) 0.1 mg Q2H PRN ORAL SBP > 170mmHg 11/25/20 10:45 02/23/21 10:44 Dextrose/Sodium Chloride 1,000 ml @ 75 mls/hr [id number] IV 11/23/20 14:45 12/23/20 14:44 11/25/20 00:58 Heparin Sodium (Porcine) (Heparin 5000 units/ml) 5,000 units EVERY 12 HOURS SUBQ 11/22/20 21:00 01/06/21 20:59 11/25/20 08:58 Levetiracetam 100 ml @ 400 mls/hr Q12HR IVPB 11/21/20 21:00 02/19/21 20:59 11/25/20 08:57 Levofloxacin 150 ml @ 100 mls/hr Q24H IVPB 11/22/20 11:00 11/29/20 10:59 11/25/20 12:07 Lorazepam (Ativan 2mg/ml 1ml) 2 mg Q6H PRN IV For Anxiety 11/21/20 19:45 11/28/20 19:44 Metoprolol Tartrate (Lopressor) 25 mg Q12HR ORAL 11/21/20 21:00 02/19/21 20:59 11/25/20 08:57 Laboratory Tests 11/25/20 09:05: White Blood Count 9.7, Red Blood Count 4.92, Hemoglobin 14.4, Hematocrit 44.4, Mean Corpuscular Volume 90, Mean Corpuscular Hemoglobin 29.3, Mean Corpuscular Hemoglobin Concent 32.5, Red Cell Distribution Width 13.8, Platelet Count 309, Mean Platelet Volume 7.8, Neutrophils (%) (Auto) 69.2, Lymphocytes (%) (Auto) 22.3, Monocytes (%) (Auto) 6.4, Eosinophils (%) (Auto) 1.1, Basophils (%) (Auto) 0.9, Sodium Level 145, Potassium Level 3.6, Chloride Level 109H, Carbon Dioxide Level 28, Anion Gap 8, Blood Urea Nitrogen 9, Creatinine 0.8, Estimat Glomerular Filtration Rate > 60, Glucose Level 136H, Calcium Level 9.2, Phosphorus Level 3.3, Magnesium Level 1.8, Total Bilirubin 0.2, Aspartate Amino Transf (AST/SGOT) 47H, Alanine Aminotransferase (ALT/SGPT) 46, Alkaline Phosphatase 125H, Total Cr eatine Kinase 393H, C-Reactive Protein, Quantitative 1.2H, Total Protein 7.6, Albumin 2.9L, Globulin 4.7, Albumin/Globulin Ratio 0.6L Height (Feet): 5 Height (Inches): 8.00 Weight (Pounds): 160 General Appearance: no apparent distress Cardiovascular: tachycardia Respiratory/Chest: decreased breath sounds Abdomen: distended Kerwin Li MD Nov 25, 2020 12:35
--- NOTE | 2020-11-25 13:07 | NUR ---
GAS TREATER NOTE Pt is from [facility]. Pt presents as A&O 2x, somewhat disorganized, pleasant and inappropriately laughing. 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 She did not recall her last abuse. UDS all negative. When this SW asked for family emergency contact, pt reports "my staff". Pt shares she has a minor daughter living in [place], [place]. When this SW asked for detail, pt did not provide the detail and only smiled. Pt does not appear to be competent to participate in substance abuse counseling/tx intervention. Surinder Brock (longterm geriatric social worker) [phone]. Pt reports she was discharged from longterm w/ unknown reason.
--- NOTE | 2020-11-25 13:54 | Infectious Diseases Prog Note ---
Assessment/Plan Assessment/Plan A; SIRS,/ Sepsis Breakthrough seizure Pyuria, ? UTI Tachycardia Elevated troponin Developmental delay DM P: Change Levaquin to Nitrofurantoin Will F/U cultures Subjective ROS Limited/Unobtainable: Yes Respiratory: Reports: no symptoms Gastrointestinal/Abdominal: Reports: other - epigastric pain Genitourinary: Reports: no symptoms Allergies: Coded Allergies: PENICILLINS (Verified Allergy, Intermediate, SNEEZING, 03/26/19) Black Pepper (Verified Allergy, Mild, 11/23/20) AMOXICILLIN (Unverified Allergy, Unknown, 11/21/20) Objective Last 24 Hour Vital Signs Date Time Temp Pulse Resp B/P (MAP) Pulse Ox O2 Delivery O2 Flow Rate FiO2 11/25/20 12:00 98.8 92 20 143/81 (101) 100 11/25/20 12:00 Room Air 11/25/20 12:00 98 11/25/20 08:57 90 143/80 11/25/20 08:00 98.2 101 20 143/78 (99) 100 11/25/20 08:00 Room Air 11/25/20 08:00 117 11/25/20 04:00 Room Air 11/25/20 04:00 95 11/25/20 04:00 97.1 98 18 134/77 (96) 100 11/25/20 00:00 Room Air 11/25/20 00:00 97.7 98 17 143/93 (110) 97 11/25/20 00:00 94 11/24/20 21:57 110 151/78 11/24/20 20:00 101 11/24/20 20:00 Room Air 11/24/20 20:00 96.1 110 20 151/78 (102) 97 11/24/20 16:00 Room Air 11/24/20 16:00 98.2 105 23 123/85 (98) 100 11/24/20 16:00 106 Height (Feet): 5 Height (Inches): 8.00 Weight (Pounds): 160 General Appearance: no acute distress HEENT: mucous membranes moist Respiratory/Chest: lungs clear Cardiovascular: normal rate Abdomen: soft, non tender Extremities: no edema Neurologic/Psychiatric: alert, responsive Microbiology Date/Time Source Procedure Growth Status 11/22/20 18:00 Urine,Clean Catch Urine Culture - Preliminary Gram Positive Cocci Resulted Laboratory Tests Test 11/25/20 09:05 White Blood Count 9.7 K/UL (4.8-10.8) Red Blood Count 4.92 M/UL (4.20-5.40) Hemoglobin 14.4 G/DL (12.0-16.0) Hematocrit 44.4 % (37.0-47.0) Mean Corpuscular Volume 90 FL (80-99) Mean Corpuscular Hemoglobin 29.3 PG (27.0-31.0) Mean Corpuscular Hemoglobin Concent 32.5 G/DL (32.0-36.0) Red Cell Distribution Width 13.8 % (11.6-14.8) Platelet Count 309 K/UL (150-450) Mean Platelet Volume 7.8 FL (6.5-10.1) Neutrophils (%) (Auto) 69.2 % (45.0-75.0) Lymphocytes (%) (Auto) 22.3 % (20.0-45.0) Monocytes (%) (Auto) 6.4 % (1.0-10.0) Eosinophils (%) (Auto) 1.1 % (0.0-3.0) Basophils (%) (Auto) 0.9 % (0.0-2.0) Sodium Level 145 MMOL/L (136-145) Potassium Level 3.6 MMOL/L (3.5-5.1) Chloride Level 109 MMOL/L (98-107) H Carbon Dioxide Level 28 MMOL/L (21-32) Anion Gap 8 mmol/L (5-15) Blood Urea Nitrogen 9 mg/dL (7-18) Creatinine 0.8 MG/DL (0.55-1.30) Estimat Glomerular Filtration Rate > 60 mL/min (>60) Glucose Level 136 MG/DL (74-106) H Calcium Level 9.2 MG/DL (8.5-10.1) Phosphorus Level 3.3 MG/DL (2.5-4.9) Magnesium Level 1.8 MG/DL (1.8-2.4) Total Bilirubin 0.2 MG/DL (0.2-1.0) Aspartate Amino Transf (AST/SGOT) 47 U/L (15-37) H Alanine Aminotransferase (ALT/SGPT) 46 U/L (12-78) Alkaline Phosphatase 125 U/L (46-116) H Total Creatine Kinase 393 U/L (26-308) H C-Reactive Protein, Quantitative 1.2 mg/dL (0.00-0.90) H Total Protein 7.6 G/DL (6.4-8.2) Albumin 2.9 G/DL (3.4-5.0) L Globulin 4.7 g/dL Albumin/Globulin Ratio 0.6 (1.0-2.7) L Current Medications Medications (Trade) Dose Ordered Sig/Eleanor Route PRN Reason Start Time Stop Time Status Last Admin Dose Admin Acetaminophen (Tylenol) 500 mg Q4H PRN ORAL Mild Pain fever 100.2 11/21/20 15:30 12/21/20 15:29 11/21/20 21:06 Aspirin (ASA) 81 mg DAILY ORAL 11/22/20 09:00 01/06/21 08:59 11/25/20 08:57 Atorvastatin Calcium (Lipitor) 20 mg BEDTIME ORAL 11/21/20 21:00 02/19/21 20:59 11/24/20 21:57 Barium Sulfate (Varibar Honey) 250 ml NOW PRN MC RAD 11/24/20 10:30 11/27/20 10:24 Barium Sulfate (Varibar [place]) 240 ml NOW PRN MC RAD 11/24/20 10:30 11/27/20 10:24 Barium Sulfate (Varibar Pudding) 230 ml NOW PRN MC RAD 11/24/20 10:30 11/27/20 10:24 Barium Sulfate (Varibar Thin Liquid powder) 148 gm NOW PRN MC RAD 11/24/20 10:30 11/27/20 10:24 Clonidine HCl (Catapres Tab) 0.1 mg Q2H PRN ORAL SBP > 170mmHg 11/25/20 10:45 02/23/21 10:44 Heparin Sodium (Porcine) (Heparin 5000 units/ml) 5,000 units EVERY 12 HOURS SUBQ 11/22/20 21:00 01/06/21 20:59 11/25/20 08:58 Levetiracetam 100 ml @ 400 mls/hr Q12HR IVPB 11/21/20 21:00 02/19/21 20:59 11/25/20 08:57 Levofloxacin 150 ml @ 100 mls/hr Q24H IVPB 11/22/20 11:00 11/29/20 10:59 11/25/20 12:07 Lorazepam (Ativan 2mg/ml 1ml) 2 mg Q6H PRN IV For Anxiety 11/21/20 19:45 11/28/20 19:44 Metoprolol Tartrate (Lopressor) 25 mg Q12HR ORAL 11/21/20 21:00 02/19/21 20:59 11/25/20 08:57 Bryan Burrows MD Nov 25, 2020 13:54
[2020-11-25 16:00] VITALS: BP 121/88
--- NOTE | 2020-11-25 18:50 | NUR ---
NURSE HAND-OFF REPORT: Important Events on Shift:NA Patient Status: Stable/full code Diet: Mech Soft Pending Orders: NA Pending Results/Labs:Pending Covid 19 test Pending MD notification:NA Latest Vital Signs: Temperature 99.0 , Pulse 110 , B/P 121 /88 , Respiratory Rate 22 , O2 SAT 100 , Room Air, O2 Flow Rate . Vital Sign Comment: Stable EKG Rhythm: Sinus Rhythm Rhythm change?: N MD Notified?: N - MD Response: Latest Cervantes Fall Score: 95 Fall Risk: High Risk Safety Measures: Call light Within Reach, Bed Alarm Zone 2, Side Rails Side Rails x3, Bed position Low and Locked. Fall Precautions: Yellow Socks Door Sign Patient Fall Education Report given to Pending RN assignment. Addendum: 11/25/20 at 1904 by Lo Quintanilla RN Report given to JOEL Vale.
--- NOTE | 2020-11-25 19:15 | NUR ---
NURSE NOTES: Patient received from JOEL Blanchard. Patient is A/O x 1. Noted to be very talkative. Patient is on room air with no signs of acute respiratory distress noted. Patient has a 24 gauge IV on her left hand, patent and flushed. Patient has no complaints as of the moment, appears to be comfortable. Bed is in the lowest position and locked, call light within reach. Will continue to monitor.
[2020-11-25 20:00] VITALS: BP 170/101
[2020-11-25] MEDS: Atorvastatin 20mg tab ORAL SCH (20:36)
--- NOTE | 2020-11-25 20:38 | General Progress Note ---
Subjective ROS Limited/Unobtainable: Yes Allergies: Coded Allergies: PENICILLINS (Verified Allergy, Intermediate, SNEEZING, 03/26/19) Black Pepper (Verified Allergy, Mild, 11/23/20) AMOXICILLIN (Unverified Allergy, Unknown, 11/21/20) Objective Last 24 Hour Vital Signs Date Time Temp Pulse Resp B/P (MAP) Pulse Ox O2 Delivery O2 Flow Rate FiO2 11/25/20 16:00 110 11/25/20 16:00 Room Air 11/25/20 16:00 99.0 110 22 121/88 (99) 100 11/25/20 12:00 98.8 92 20 143/81 (101) 100 11/25/20 12:00 Room Air 11/25/20 12:00 98 11/25/20 08:57 90 143/80 11/25/20 08:00 98.2 101 20 143/78 (99) 100 11/25/20 08:00 Room Air 11/25/20 08:00 117 11/25/20 04:00 Room Air 11/25/20 04:00 95 11/25/20 04:00 97.1 98 18 134/77 (96) 100 11/25/20 00:00 Room Air 11/25/20 00:00 97.7 98 17 143/93 (110) 97 11/25/20 00:00 94 11/24/20 21:57 110 151/78 Intake and Output 11/24/20 11/25/20 19:00 07:00 Intake Total 240 ml Output Total 5000 ml Balance -4760 ml Other 240 ml Output Urine Total 5000 ml # Voids 1 2 Laboratory Tests 11/25/20 09:05: White Blood Count 9.7, Red Blood Count 4.92, Hemoglobin 14.4, Hematocrit 44.4, Mean Corpuscular Volume 90, Mean Corpuscular Hemoglobin 29.3, Mean Corpuscular Hemoglobin Concent 32.5, Red Cell Distribution Width 13.8, Platelet Count 309, Mean Platelet Volume 7.8, Neutrophils (%) (Auto) 69.2, Lymphocytes (%) (Auto) 22.3, Monocytes (%) (Auto) 6.4, Eosinophils (%) (Auto) 1.1, Basophils (%) (Auto) 0.9, Sodium Level 145, Potassium Level 3.6, Chloride Level 109H, Carbon Dioxide Level 28, Anion Gap 8, Blood Urea Nitrogen 9, Creatinine 0.8, Estimat Glomerular Filtration Rate > 60, Glucose Level 136H, Calcium Level 9.2, Phosphorus Level 3.3, Magnesium Level 1.8, Total Bilirubin 0.2, Aspartate Amino Transf (AST/SGOT) 47H, Alanine Aminotransferase (ALT/SGPT) 46, Alkaline Phosphatase 125H, Total Creatine Kinase 393H, C-Reactive Protein, Quantitative 1.2H, Total Protein 7.6, Albumin 2.9L, Globulin 4.7, Albumin/Globulin Ratio 0.6L Height (Feet): 5 Height (Inches): 8.00 Weight (Pounds): 160 Assessment/Plan Problem List: (1) Seizure disorder ICD Codes: G40.909 - Epilepsy, unspecified, not intractable, without status epilepticus SNOMED: 833285767 (2) SVT (supraventricular tachycardia) ICD Codes: I47.1 - Supraventricular tachycardia SNOMED: 1873467 (3) Status epilepticus ICD Codes: G40.901 - Epilepsy, unspecified, not intractable, with status epilepticus SNOMED: 762658975 Status: progressing Assessment/Plan: svt resolved dc planning change iv keppra to po on iv abx appetite is good dc in am mental delay recurrent seizure r/o aspiration pna leukocytosis is improving reviewed chart Israel Avitia MD Nov 25, 2020 20:38
--- NOTE | 2020-11-25 21:00 | NUR ---
NURSE NOTES: Patient noted to have elevated blood pressure. Scheduled metroplol given to the patient.
--- NOTE | 2020-11-25 22:49 | Psychiatric Progress Note ---
Psychiatry Progress Note Psychiatry Progress Note Medications Current Medications Medications (Trade) Dose Ordered Sig/Eleanor Route PRN Reason Start Time Stop Time Status Last Admin Dose Admin Acetaminophen (Tylenol) 500 mg Q4H PRN ORAL Mild Pain fever 100.2 11/21/20 15:30 12/21/20 15:29 11/21/20 21:06 Aspirin (ASA) 81 mg DAILY ORAL 11/22/20 09:00 01/06/21 08:59 11/25/20 08:57 Atorvastatin Calcium (Lipitor) 20 mg BEDTIME ORAL 11/21/20 21:00 02/19/21 20:59 11/25/20 20:36 Barium Sulfate (Varibar Honey) 250 ml NOW PRN MC RAD 11/24/20 10:30 11/27/20 10:24 Barium Sulfate (Varibar [place]) 240 ml NOW PRN MC RAD 11/24/20 10:30 11/27/20 10:24 Barium Sulfate (Varibar Pudding) 230 ml NOW PRN MC RAD 11/24/20 10:30 11/27/20 10:24 Barium Sulfate (Varibar Thin Liquid powder) 148 gm NOW PRN MC RAD 11/24/20 10:30 11/27/20 10:24 Clonidine HCl (Catapres Tab) 0.1 mg Q2H PRN ORAL SBP > 170mmHg 11/25/20 10:45 02/23/21 10:44 Heparin Sodium (Porcine) (Heparin 5000 units/ml) 5,000 units EVERY 12 HOURS SUBQ 11/22/20 21:00 01/06/21 20:59 11/25/20 20:36 Levetiracetam 100 ml @ 400 mls/hr Q12HR IVPB 11/21/20 21:00 02/19/21 20:59 11/25/20 20:36 Lorazepam (Ativan 2mg/ml 1ml) 2 mg Q6H PRN IV For Anxiety 11/21/20 19:45 11/28/20 19:44 11/25/20 20:34 Metoprolol Tartrate (Lopressor) 25 mg Q12HR ORAL 11/21/20 21:00 02/19/21 20:59 11/25/20 20:38 Nitrofurantoin (Macrobid) 100 mg EVERY 12 HOURS ORAL 11/25/20 21:00 12/02/20 20:59 11/25/20 20:35 Allergies: Coded Allergies: PENICILLINS (Verified Allergy, Intermediate, SNEEZING, 03/26/19) Black Pepper (Verified Allergy, Mild, 11/23/20) AMOXICILLIN (Unverified Allergy, Unknown, 11/21/20) Objective Data Height (Feet): 5 Height (Inches): 8.00 Weight (Pounds): 160 General Appearance: no apparent distress Assessment/Plan Status: progressing Mary Humphrey MD Nov 25, 2020 22:49
[2020-11-26] VITALS: BP 152/82
--- NOTE | 2020-11-26 02:24 | Cardiology Report ---
APPROVED REPORT EXAM: Two-dimensional and M-mode echocardiogram with Doppler and color Doppler. INDICATION Cardiac Disease: CAD M-Mode DIMENSIONS IVSd0.8 (0.7-1.1cm)Left Atrium (MM)3.4 (1.6-4.0cm) LVDd5.5 (3.5-5.6cm)Aortic Root3.1 (2.0-3.7cm) PWd0.9 (0.7-1.1cm)Aortic Cusp Exc.2.2 (1.5-2.0cm) IVSs1.5 cmEPSS0.5 (>1.0cm) LVDs4.1 (2.5-4.0cm) PWs1.2 cm Other Information Technically limited study due to body habitus. <Conclusion> Technically difficult study due to poorl acoustical windows. Normal left ventricular chamber size, hyperdynamic systolic function and wall motion to extent visualized. Left ventricular ejection fraction estimated to be 65%. Study quality precludes accurate assessment of regional wall motion. No evidence of left ventricular hypertrophy. No evidence of pericardial effusion. All other cardiac chamber sizes are within normal limits. Focal aortic valve sclerosis with adequate cusp excursion. Thickened mitral valve leaflets with normal excursion. Mitral annulus and aortic root calcification. Pulmonic valve not well visualized. Normal tricuspid valve structure. IVC at normal size with physiologic collapse. A color flow and spectral Doppler study was performed and revealed: No aortic regurgitation. Trace mitral regurgitation. Mitral diastolic velocities suggest reduced left ventricular relaxation c/w mild LV diastolic dysfunction (Grade I ). Trace tricuspid regurgitation. Tricuspid systolic velocities suggests peak right ventricular systolic pressure of 37 mmHg, consistent with mild pulmonary hypertension.
[2020-11-26 04:00] VITALS: BP 157/88
--- NOTE | 2020-11-26 07:15 | NUR ---
NURSE HAND-OFF REPORT: Important Events on Shift:[Patient to be possibly discharged today. Covid result still pending. Endorsed to morning shift nurse that Keppra still needs to be changed to PO] Patient Status: [Stable] Diet: [Mechanical soft diet] Pending Orders: [] Pending Results/Labs:[] Pending MD notification:[] Latest Vital Signs: Temperature 97.6 , Pulse 100 , B/P 157 /88 , Respiratory Rate 22 , O2 SAT 97 , Room Air, O2 Flow Rate . Vital Sign Comment: [] EKG Rhythm: Sinus Tachycardia Rhythm change?: Y MD Notified?: N - MD Response: Latest Cervantes Fall Score: 95 Fall Risk: High Risk Safety Measures: Call light Within Reach, Bed Alarm Zone 2, Side Rails Side Rails x3, Bed position Low and Locked. Fall Precautions: Yellow Socks Door Sign Patient Fall Education Report given to [JOEL Napoles].
--- NOTE | 2020-11-26 07:49 | NUR ---
NURSE NOTES: patient received from JOEL Vale. Patient seen in bed in high fowlers position with room air and oxygen saturation within normal limits. The patient does not complain of any pain and is under no acute signs of distress. The patient has a right 22G FA IV that is saline locked, clean, patent and intact. The patients bed is in lowest position, locked, side rails x3, bed alarm in zone 1 and call light within reach. patient instructed to press call light for any further needs.
[2020-11-26 08:00] VITALS: BP 158/107
[2020-11-26] MEDS: levETIRAcetam 500mg/NS100ml 100 ML IVPB SCH (09:16)
[2020-11-26] MEDS: Aspirin Baby 81mg ORAL SCH (09:16)
[2020-11-26] MEDS: Heparin 5000 units/ml inj SUBQ SCH ×2 (09:19→21:20)
--- NOTE | 2020-11-26 09:46 | Neurology Progress Note ---
Interim History Interim History ROS Limited/Unobtainable: Yes Events: no seizures reported dc planning Objective Physical Exam Last Vital Signs Date Time Temp Pulse Resp B/P (MAP) Pulse Ox O2 Delivery O2 Flow Rate FiO2 11/26/20 09:18 110 158/107 11/26/20 04:00 Room Air 11/26/20 04:00 97.6 22 97 Neurologic Exam Objective ROS unable to assess Vitals Reviewed General: Patient is lying down Neuro: Alert to self oriented to self does not remember what happened Comprehension intact. Language parameters intact slow to respond. Crainial nervies II-XI were tested. PEERLA No nystagmus. Tongue is midline. Facial is symmetric. hearing intact Motor: No invountary movements, bilateral Upper extremities 4/5 Lower extremities 4/5. Sensation: intact Gait not tested Postictal Impression/Recommendations Status: progressing Diagnostic Impression IMAGING: CT HEAD:Findings: No acute intracranial hemorrhage or edema, mass effect, nor midline shift. Normal [place]-white differentiation. There is abnormal configuration of the solar installer technician ior lateral ventricles. These appear more normal anteriorly. Size of the ventricles and extra axial CSF spaces. Visualized orbits and sinuses are unremarkable. The mastoids are clear. The calvarium is intact. 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 Seizure, she is in post ictal phase responds slowly to questions --> reviewed [facility] records, continue keppra 500mg po bid and ativan, CT Head reviewed d/w JOEL Napoles 2. Methamphetamine abuse 3. Obesty 4. Schizophrenia 5. Hyupoxia --> Pulmo on board Lia Coburn NP Nov 26, 2020 09:46
[2020-11-26] MEDS ORDERED: NITROFURANTOIN100 M2 ORAL (10:19)
[2020-11-26] MEDS ORDERED: METOPROLOL TART25 MG ORAL (10:20)
[2020-11-26] MEDS ORDERED: ATIVAN1 MG ORAL (10:22)
[2020-11-26] MEDS ORDERED: LEVETIRACE500 MG/51 PO ×2 (10:24→10:25)
[2020-11-26] MEDS ORDERED: CATAPRES0.1 MG ORAL (10:27)
--- NOTE | 2020-11-26 10:27 | NUR ---
RD ASSESSMENT & RECOMMENDATIONS SEE CARE ACTIVITY FOR COMPLETE ASSESSMENT DAILY ESTIMATED NEEDS: Needs based on Cardiac, obese 76kg abw 20-25 kcals/kg [id number] total kcals 1-1.2 g protein/kg 76-91 g total protein Fluid per MD NUTRITION DIAGNOSIS: Decreased sodium and fat needs r/t cardiac history and obesity as evidenced by elevated BP(158/107), HTN, BMI 37.8, obese class II per guidelines. CURRENT DIET: Cardiac PO DIET RECOMMENDATIONS: Maintain Cardiac/CCHO LOW diet ADDITIONAL RECOMMENDATIONS: 1) DC added D5, lytes wnl. 2) Obtain a standing weight as able 3) bowel regimen
[2020-11-26] MEDS ORDERED: ASPIRIN EC81 MG ORAL (10:28)
[2020-11-26] MEDS ORDERED: LIPITOR20 MG ORAL (10:29)
[2020-11-26] MEDS ORDERED: TYLENOL EXTRA500 MG ORAL (10:31)
[2020-11-26 12:00] VITALS: BP 168/109
--- NOTE | 2020-11-26 12:18 | Infectious Diseases Prog Note ---
Assessment/Plan Assessment/Plan A; SIRS,/ Sepsis Breakthrough seizure Pyuria, ? UTI Tachycardia Elevated troponin Developmental delay DM P: Continue Nitrofurantoin X 1 day Subjective ROS Limited/Unobtainable: No Respiratory: Reports: no symptoms Gastrointestinal/Abdominal: Reports: no symptoms Genitourinary: Reports: no symptoms Allergies: Coded Allergies: PENICILLINS (Verified Allergy, Intermediate, SNEEZING, 03/26/19) Black Pepper (Verified Allergy, Mild, 11/23/20) AMOXICILLIN (Unverified Allergy, Unknown, 11/21/20) Objective Last 24 Hour Vital Signs Date Time Temp Pulse Resp B/P (MAP) Pulse Ox O2 Delivery O2 Flow Rate FiO2 11/26/20 09:18 110 158/107 11/26/20 08:00 Room Air 11/26/20 08:00 110 11/26/20 08:00 98.3 110 22 158/107 (124) 97 11/26/20 04:00 Room Air 11/26/20 04:00 103 11/26/20 04:00 97.6 100 22 157/88 (111) 97 11/26/20 00:00 97 11/26/20 00:00 Room Air 11/26/20 00:00 97.6 100 18 152/82 (105) 98 11/25/20 21:04 100 20 152/82 98 11/25/20 20:38 70 170/101 11/25/20 20:00 98.2 111 18 170/101 (124) 100 11/25/20 20:00 Room Air 11/25/20 20:00 105 11/25/20 16:00 110 11/25/20 16:00 Room Air 11/25/20 16:00 99.0 110 22 121/88 (99) 100 Height (Feet): 5 Height (Inches): 8.00 Weight (Pounds): 160 HEENT: mucous membranes moist Respiratory/Chest: lungs clear Cardiovascular: tachycardia Abdomen: soft, non tender Extremities: no edema Neurologic/Psychiatric: alert, responsive Current Medications Medications (Trade) Dose Ordered Sig/Eleanor Route PRN Reason Start Time Stop Time Status Last Admin Dose Admin Acetaminophen (Tylenol) 500 mg Q4H PRN ORAL Mild Pain fever 100.2 11/21/20 15:30 12/21/20 15:29 11/21/20 21:06 Aspirin (ASA) 81 mg DAILY ORAL 1/30/21 09:00 01/06/21 08:59 11/26/20 09:16 Atorvastatin Calcium (Lipitor) 20 mg BEDTIME ORAL 11/21/20 21:00 02/19/21 20:59 11/25/20 20:36 Barium Sulfate (Varibar Honey) 250 ml NOW PRN MC RAD 11/24/20 10:30 11/27/20 10:24 Barium Sulfate (Varibar [place]) 240 ml NOW PRN MC RAD 11/24/20 10:30 11/27/20 10:24 Barium Sulfate (Varibar Pudding) 230 ml NOW PRN MC RAD 11/24/20 10:30 11/27/20 10:24 Barium Sulfate (Varibar Thin Liquid powder) 148 gm NOW PRN MC RAD 11/24/20 10:30 11/27/20 10:24 Clonidine HCl (Catapres Tab) 0.1 mg Q2H PRN ORAL SBP > 170mmHg 11/25/20 10:45 02/23/21 10:44 Heparin Sodium (Porcine) (Heparin 5000 units/ml) 5,000 units EVERY 12 HOURS SUBQ 11/22/20 21:00 01/06/21 20:59 11/26/20 09:19 Levetiracetam (Keppra) 500 mg Q12HR NG 11/26/20 21:00 01/10/21 20:59 Lorazepam (Ativan 2mg/ml 1ml) 2 mg Q6H PRN IV For Anxiety 11/21/20 19:45 11/28/20 19:44 11/25/20 20:34 Metoprolol Tartrate (Lopressor) 25 mg Q12HR ORAL 11/21/20 21:00 02/19/21 20:59 11/26/20 09:18 Nitrofurantoin (Macrobid) 100 mg EVERY 12 HOURS ORAL 11/25/20 21:00 12/02/20 20:59 11/26/20 09:17 Bryan Burrows MD Nov 26, 2020 12:18
[2020-11-26] MEDS ORDERED: 1/2 NS 1000ml IV ONE (13:13)
[2020-11-26] MEDS ORDERED: Tubing IV Secondary IV ONE (13:13)
--- NOTE | 2020-11-26 13:39 | Nephrology Progress Note ---
Assessment/Plan Problem List: (1) Electrolyte imbalance (2) DMII (diabetes mellitus, type 2) (3) Status epilepticus (4) Elevated CK Assessment Hypomagnesium Hyponatremia Seizure disorder, status epilepticus SVT History of hypertension Tachycardia Developmental delay Diabetes mellitus Plan November 26: No labs drawn today. Blood pressure out of control. Will start clonidine 0.1 mg every 8 hours with parameters. Will check lab tomorrow. November 25: Labs reviewed. IV fluids stopped. CPK lowering. Continue p.o. liquid intake. November 24: Labs reviewed. Abnormal electrolytes now corrected. Continue per current management. Hemoglobin A1c elevated. CPK slightly elevated. Increase IV fluid. Monitor CPK. Previously: IV magnesium sulfate 4 g Check: Urine and serum osmolality, uric acid, TSH, lipid panel as part of hyponatremia work-up Stop hypotonic solution and start isotonic solution Per orders Subjective ROS Limited/Unobtainable: No Constitutional: Reports: malaise, weakness Objective Objective Last 24 Hour Vital Signs Date Time Temp Pulse Resp B/P (MAP) Pulse Ox O2 Delivery O2 Flow Rate FiO2 11/26/20 12:00 99.3 110 20 168/109 (128) 98 11/26/20 12:00 92 11/26/20 12:00 Room Air 11/26/20 09:18 110 158/107 11/26/20 08:00 Room Air 11/26/20 08:00 110 11/26/20 08:00 98.3 110 22 158/107 (124) 97 11/26/20 04:00 Room Air 11/26/20 04:00 103 11/26/20 04:00 97.6 100 22 157/88 (111) 97 11/26/20 00:00 97 11/26/20 00:00 Room Air 11/26/20 00:00 97.6 100 18 152/82 (105) 98 11/25/20 21:04 100 20 152/82 98 11/25/20 20:38 70 170/101 11/25/20 20:00 98.2 111 18 170/101 (124) 100 11/25/20 20:00 Room Air 11/25/20 20:00 105 11/25/20 16:00 110 11/25/20 16:00 Room Air 11/25/20 16:00 99.0 110 22 121/88 (99) 100 Intake and Output 11/25/20 11/26/20 19:00 07:00 Intake Total 550 ml 800 ml Balance 550 ml 800 ml Intake Oral 450 ml 800 ml IV Total 100 ml # Voids 2 3 Current Medications Medications (Trade) Dose Ordered Sig/Eleanor Route PRN Reason Start Time Stop Time Status Last Admin Dose Admin Acetaminophen (Tylenol) 500 mg Q4H PRN ORAL Mild Pain fever 100.2 11/21/20 15:30 12/21/20 15:29 11/21/20 21:06 Aspirin (ASA) 81 mg DAILY ORAL 11/22/20 09:00 01/06/21 08:59 11/26/20 09:16 Atorvastatin Calcium (Lipitor) 20 mg BEDTIME ORAL 11/21/20 21:00 02/19/21 20:59 11/25/20 20:36 Barium Sulfate (Varibar Honey) 250 ml NOW PRN MC RAD 11/24/20 10:30 11/27/20 10:24 Barium Sulfate (Varibar [place]) 240 ml NOW PRN MC RAD 11/24/20 10:30 11/27/20 10:24 Barium Sulfate (Varibar Pudding) 230 ml NOW PRN MC RAD 11/24/20 10:30 11/27/20 10:24 Barium Sulfate (Varibar Thin Liquid powder) 148 gm NOW PRN MC RAD 11/24/20 10:30 11/27/20 10:24 Clonidine HCl (Catapres Tab) 0.1 mg EVERY 8 HOURS ORAL 11/26/20 14:00 02/24/21 13:59 UNV Clonidine HCl (Catapres Tab) 0.1 mg Q2H PRN ORAL SBP > 170mmHg 11/25/20 10:45 02/23/21 10:44 Heparin Sodium (Porcine) (Heparin 5000 units/ml) 5,000 units EVERY 12 HOURS SUBQ 11/22/20 21:00 01/06/21 20:59 11/26/20 09:19 Levetiracetam (Keppra) 500 mg Q12HR NG 11/26/20 21:00 01/10/21 20:59 Lorazepam (Ativan 2mg/ml 1ml) 2 mg Q6H PRN IV For Anxiety 11/21/20 19:45 11/28/20 19:44 11/25/20 20:34 Metoprolol Tartrate (Lopressor) 25 mg Q12HR ORAL 11/21/20 21:00 02/19/21 20:59 11/26/20 09:18 Nitrofurantoin (Macrobid) 100 mg EVERY 12 HOURS ORAL 11/25/20 21:00 12/02/20 20:59 11/26/20 09:17 Height (Feet): 5 Height (Inches): 8.00 Weight (Pounds): 160 General Appearance: no apparent distress Cardiovascular: tachycardia Respiratory/Chest: decreased breath sounds Abdomen: distended Kerwin Li MD Nov 26, 2020 13:39
--- NOTE | 2020-11-26 13:50 | Cardiac Electrophysiology PN ---
Assessment/Plan Assessment/Plan 1. HTN On Lopressor 25 po bid. EF 65%. PRN Clonidine was added 2. SVT better with Lopressor. S/P Adenosine 12 mg x2 and iv cardizem with no response 3. Hyperlipidemia on Lipitor 4. Seizure on Keppra and Ativan 5. Methamphetamine abuse 6. Obesity 7. Schizophrenia 8. Covid PCR pending DW RN Subjective Subjective No CP or SOB on RA. Covid PCR is pending Objective Last 24 Hour Vital Signs Date Time Temp Pulse Resp B/P (MAP) Pulse Ox O2 Delivery O2 Flow Rate FiO2 11/26/20 12:00 99.3 110 20 168/109 (128) 98 11/26/20 12:00 92 11/26/20 12:00 Room Air 11/26/20 09:18 110 158/107 11/26/20 08:00 Room Air 11/26/20 08:00 110 11/26/20 08:00 98.3 110 22 158/107 (124) 97 11/26/20 04:00 Room Air 11/26/20 04:00 103 11/26/20 04:00 97.6 100 22 157/88 (111) 97 11/26/20 00:00 97 11/26/20 00:00 Room Air 11/26/20 00:00 97.6 100 18 152/82 (105) 98 11/25/20 21:04 100 20 152/82 98 11/25/20 20:38 70 170/101 11/25/20 20:00 98.2 111 18 170/101 (124) 100 11/25/20 20:00 Room Air 11/25/20 20:00 105 11/25/20 16:00 110 11/25/20 16:00 Room Air 11/25/20 16:00 99.0 110 22 121/88 (99) 100 Intake and Output 11/25/20 11/26/20 19:00 07:00 Intake Total 550 ml 800 ml Balance 550 ml 800 ml Intake Oral 450 ml 800 ml IV Total 100 ml # Voids 2 3 Microbiology Date/Time Source Procedure Growth Status 11/25/20 15:31 Nasopharynx Coronavirus COVID-19 PCR ([facility]) - Final Complete Objective General Appearance: no acute distress HEENT: atraumatic Respiratory: lungs clear Cardiovascular: normal rate, regular rhythm Abdomen: soft, non tender Carl Weber MD Nov 26, 2020 13:50
--- NOTE | 2020-11-26 14:40 | Pulmonology Progress Note ---
Subjective ROS Limited/Unobtainable: No Interval Events: no seizure overnight Constitutional: Reports: other - doing better HEENT: Repors: no symptoms Respiratory: Reports: no symptoms Cardiovascular: Reports: no symptoms Gastrointestinal/Abdominal: Reports: no symptoms Allergies: Coded Allergies: PENICILLINS (Verified Allergy, Intermediate, SNEEZING, 03/26/19) Black Pepper (Verified Allergy, Mild, 11/23/20) AMOXICILLIN (Unverified Allergy, Unknown, 11/21/20) Objective Last 24 Hour Vital Signs Date Time Temp Pulse Resp B/P (MAP) Pulse Ox O2 Delivery O2 Flow Rate FiO2 11/26/20 14:24 168/109 11/26/20 12:00 99.3 110 20 168/109 (128) 98 11/26/20 12:00 92 11/26/20 12:00 Room Air 11/26/20 09:18 110 158/107 11/26/20 08:00 Room Air 11/26/20 08:00 110 11/26/20 08:00 98.3 110 22 158/107 (124) 97 11/26/20 04:00 Room Air 11/26/20 04:00 103 11/26/20 04:00 97.6 100 22 157/88 (111) 97 11/26/20 00:00 97 11/26/20 00:00 Room Air 11/26/20 00:00 97.6 100 18 152/82 (105) 98 11/25/20 21:04 100 20 152/82 98 11/25/20 20:38 70 170/101 11/25/20 20:00 98.2 111 18 170/101 (124) 100 11/25/20 20:00 Room Air 11/25/20 20:00 105 11/25/20 16:00 110 11/25/20 16:00 Room Air 11/25/20 16:00 99.0 110 22 121/88 (99) 100 Intake and Output 11/25/20 11/26/20 19:00 07:00 Intake Total 550 ml 800 ml Balance 550 ml 800 ml Intake Oral 450 ml 800 ml IV Total 100 ml # Voids 2 3 General Appearance: no acute distress HEENT: atraumatic Respiratory: lungs clear Cardiovascular: normal rate, regular rhythm Abdomen: soft, non tender Microbiology Date/Time Source Procedure Growth Status 11/25/20 15:31 Nasopharynx Coronavirus COVID-19 PCR ([facility]) - Final Complete Current Medications Medications (Trade) Dose Ordered Sig/Eleanor Route PRN Reason Start Time Stop Time Status Last Admin Dose Admin Acetaminophen (Tylenol) 500 mg Q4H PRN ORAL Mild Pain fever 100.2 11/21/20 15:30 12/21/20 15:29 11/21/20 21:06 Aspirin (ASA) 81 mg DAILY ORAL 11/22/20 09:00 01/06/21 08:59 11/26/20 09:16 Atorvastatin Calcium (Lipitor) 20 mg BEDTIME ORAL 11/21/20 21:00 02/19/21 20:59 11/25/20 20:36 Barium Sulfate (Varibar Honey) 250 ml NOW PRN MC RAD 11/24/20 10:30 11/27/20 10:24 Barium Sulfate (Varibar [place]) 240 ml NOW PRN MC RAD 11/24/20 10:30 11/27/20 10:24 Barium Sulfate (Varibar Pudding) 230 ml NOW PRN MC RAD 11/24/20 10:30 11/27/20 10:24 Barium Sulfate (Varibar Thin Liquid powder) 148 gm NOW PRN MC RAD 11/24/20 10:30 11/27/20 10:24 Clonidine HCl (Catapres Tab) 0.1 mg EVERY 8 HOURS ORAL 11/26/20 14:00 02/24/21 13:59 11/26/20 14:24 Clonidine HCl (Catapres Tab) 0.1 mg Q2H PRN ORAL SBP > 170mmHg 11/25/20 10:45 02/23/21 10:44 Heparin Sodium (Porcine) (Heparin 5000 units/ml) 5,000 units EVERY 12 HOURS SUBQ 11/22/20 21:00 01/06/21 20:59 11/26/20 09:19 Levetiracetam (Keppra) 500 mg Q12HR NG 11/26/20 21:00 01/10/21 20:59 Lorazepam (Ativan 2mg/ml 1ml) 2 mg Q6H PRN IV For Anxiety 11/21/20 19:45 11/28/20 19:44 11/25/20 20:34 Metoprolol Tartrate (Lopressor) 25 mg Q12HR ORAL 11/21/20 21:00 02/19/21 20:59 11/26/20 09:18 Nitrofurantoin (Macrobid) 100 mg EVERY 12 HOURS ORAL 11/25/20 21:00 12/02/20 20:59 11/26/20 09:17 Assessment/Plan Assessment/Plan 1. Hypertension - cardio following 2. Tachycardia -cardio following - venous duplex US negative for DVT 3. Sepsis/Leukocytosis - ID following - on Abx 4. Elevated troponin -Serial troponin; troponin trending down -Cardio following 5. Risk for aspiration secondary to seizure -Monitor for aspiration risk due to altered mental status - fu CXR if indicated -s/p empiric antibiotics 6. Monitor for hypoxemia 7. Elevated D-dimer - venous duplex US negative for DVT - on heparin subcu BID - on SCD 8. COVID-19 PCR negative Medically stable for discharge to SNF from pulmonary standpoint The care for this patient was discussed with my supervising physician. Time spent for this case was approximately 31 minutes. Rich Sarabia Nov 26, 2020 14:40
[2020-11-26 16:00] VITALS: BP 160/93
--- NOTE | 2020-11-26 17:47 | NUR ---
NURSE NOTES: contacted by Digna Wilkins from [facility] [employer] in regards to discharge placement. Digna spoke to Jessika about patients placement . nursing staff has not been made aware of by Jessika in regards to placement or transportation. Attempted to contact Jessika but no response. Left voicemail for Jessika.
--- NOTE | 2020-11-26 17:52 | NUR ---
REGASIFICATION PLANT OPERATOR NOTES SPOKE WITH ISABELA NURSE AT [facility], PLACEMENT FOUND, HOWEVER PRESCRIPTIONS ARE NEEDED FOR THE CURRENT MEDICATION PT IS ON. DR. BECERRIL MADE AWARE.
--- NOTE | 2020-11-26 19:43 | NUR ---
NURSE HAND-OFF REPORT: Important Events on Shift:[D/c placement, negative PCR] Patient Status: [Full code] Diet: [Mechanical soft diet crush meds] Pending Orders: [N/A] Pending Results/Labs:[N/A] Pending MD notification:[N/A] Latest Vital Signs: Temperature 96.7 , Pulse 100 , B/P 160 /93 , Respiratory Rate 20 , O2 SAT 96 , Room Air, O2 Flow Rate . Vital Sign Comment: [] EKG Rhythm: Sinus Rhythm Rhythm change?: N MD Notified?: N - MD Response: Latest Cervantes Fall Score: 95 Fall Risk: High Risk Safety Measures: Call light Within Reach, Bed Alarm Zone 2, Side Rails Side Rails x3, Bed position Low and Locked. Fall Precautions: Yellow Socks Door Sign Patient Fall Education Report given to [JOEL Curtis].
--- NOTE | 2020-11-26 19:50 | NUR ---
NURSE NOTES: Patient received from JOEL Napoles. Patient is A/O x 1. Noted to be very talkative. Patient is on room air with no signs of acute respiratory distress noted. Patient has a 22 gauge IV on her FA, patent and flushed s/l. No bleeding or erythema noted. Patient has no complaints of pain at this time, appears to be comfortable. Side rails are patted but patient has removed the padding. Padding was placed back on. Bed is in the lowest position and locked, Bed alarm is on. call light within reach. Will continue to monitor.
[2020-11-26 20:00] VITALS: BP 143/97
[2020-11-26] MEDS: levETIRAcetam 500mg/5ml Liquid NG SCH (21:20)
[2020-11-26] MEDS: Atorvastatin 20mg tab ORAL SCH (21:20)
--- NOTE | 2020-11-26 21:26 | General Progress Note ---
Subjective ROS Limited/Unobtainable: Yes Allergies: Coded Allergies: PENICILLINS (Verified Allergy, Intermediate, SNEEZING, 03/26/19) Black Pepper (Verified Allergy, Mild, 11/23/20) AMOXICILLIN (Unverified Allergy, Unknown, 11/21/20) Objective Last 24 Hour Vital Signs Date Time Temp Pulse Resp B/P (MAP) Pulse Ox O2 Delivery O2 Flow Rate FiO2 11/26/20 21:21 98 143/97 11/26/20 20:00 107 11/26/20 16:00 96.7 103 20 160/93 (115) 96 11/26/20 16:00 Room Air 11/26/20 16:00 100 11/26/20 14:24 168/109 11/26/20 12:00 99.3 110 20 168/109 (128) 98 11/26/20 12:00 92 11/26/20 12:00 Room Air 11/26/20 09:18 110 158/107 11/26/20 08:00 Room Air 11/26/20 08:00 110 11/26/20 08:00 98.3 110 22 158/107 (124) 97 11/26/20 04:00 Room Air 11/26/20 04:00 103 11/26/20 04:00 97.6 100 22 157/88 (111) 97 11/26/20 00:00 97 11/26/20 00:00 Room Air 11/26/20 00:00 97.6 100 18 152/82 (105) 98 Intake and Output 11/25/20 11/26/20 19:00 07:00 Intake Total 550 ml 800 ml Balance 550 ml 800 ml Intake Oral 450 ml 800 ml IV Total 100 ml # Voids 2 3 Height (Feet): 5 Height (Inches): 8.00 Weight (Pounds): 160 Assessment/Plan Problem List: (1) Seizure disorder ICD Codes: G40.909 - Epilepsy, unspecified, not intractable, without status epilepticus SNOMED: 894337148 (2) SVT (supraventricular tachycardia) ICD Codes: I47.1 - Supraventricular tachycardia SNOMED: 3804965 (3) Status epilepticus ICD Codes: G40.901 - Epilepsy, unspecified, not intractable, with status epilepticus SNOMED: 225033003 Status: progressing Assessment/Plan: refractory seizure needs to go to snf for close monitoring for recurrent seizure Israel Avitia MD Nov 26, 2020 21:26
[2020-11-27] VITALS: BP 152/87
[2020-11-27 04:00] VITALS: BP 125/82
[2020-11-27 06:30] LABS: BASOPHILS % (AUTO) 1.1 % (0.0-2.0); EOSINOPHILS % (AUTO) 1.7 % (0.0-3.0); HEMATOCRIT 44.5 % (37.0-47.0); HEMOGLOBIN 14.7 G/DL (12.0-16.0); LYMPHOCYTES % (AUTO) 23.9 % (20.0-45.0); MEAN CORPUSCULAR VOLUME 89 FL (80-99); MONOCYTES % (AUTO) 5.8 % (1.0-10.0); NEUTROPHILS % (AUTO) 67.5 % (45.0-75.0); PLATELET COUNT 305 K/UL (150-450); RED BLOOD COUNT 4.99 M/UL (4.20-5.40); RED CELL DISTRIBUTION WIDTH 13.6 % (11.6-14.8); WHITE BLOOD COUNT 11.6 K/UL (4.8-10.8)
--- NOTE | 2020-11-27 06:46 | NUR ---
NURSE HAND-OFF REPORT: Important Events on Shift: D/c Planning pending Patient Status: No acute distress Diet: Cardiac Mechanical soft Pending Orders: Pending Results/Labs: Pending MD notification: Latest Vital Signs: Temperature 98.2 , Pulse 80 , B/P 125 /82 , Respiratory Rate 18 , O2 SAT 98 , Room Air, O2 Flow Rate . Vital Sign Comment: EKG Rhythm: Sinus Rhythm Rhythm change?: N MD Notified?: N - MD Response: Latest Cervantes Fall Score: 95 Fall Risk: High Risk Safety Measures: Call light Within Reach, Bed Alarm Zone 2, Side Rails Side Rails x3, Bed position Low and Locked. Fall Precautions: Yellow Socks Door Sign Patient Fall Education Report to be given. Addendum: 11/27/20 at 0738 by Kamille Curtis RN report given to Roman MALDONADO
--- NOTE | 2020-11-27 06:49 | NUR ---
CASE MANAGEMENT:REVIEW 11/27/20 SI: STATUS EPILEPTICUS. SVT 98.2 80 18 125/82 98% ON RA LABS CURRENTLY PENDING IS: KEPPRA PO Q12 CLONIDINE PO Q8HRS MACROBID PO Q12 HEPARIN SQ Q12 ASA PO QD LOPRESSOR PO Q12 : TELEMETRY STATUS DCP: PER [facility]
--- NOTE | 2020-11-27 06:52 | NUR ---
DISCHARGE PLANNING PATIENT IS UNDER THE CARE OF [facility] AND THEY ARE IN CONTROL OF DISCHARGE DISPOSITION PER NOTES WE ARE WAITING FOR PRESCRIPTIONS FOR DISCHARGE
[2020-11-27 07:05] LABS: ALANINE AMINOTRANSFERASE 44 U/L (12-78); ALBUMIN 3.1 G/DL (3.4-5.0); ALBUMIN/GLOBULIN RATIO 0.6 (1.0-2.7); ALKALINE PHOSPHATASE 140 U/L (46-116); ANION GAP 9 mmol/L (5-15); ASPARTATE AMINO TRANSFERASE 29 U/L (15-37); BILIRUBIN,TOTAL 0.3 MG/DL (0.2-1.0); BLOOD UREA NITROGEN 11 mg/dL (7-18); CALCIUM 9.7 MG/DL (8.5-10.1); CARBON DIOXIDE 28 MMOL/L (21-32); CHLORIDE 105 MMOL/L (98-107); CREATINE KINASE 221 U/L (26-308); CREATININE 0.8 MG/DL (0.55-1.30); PHOSPHORUS 3.9 MG/DL (2.5-4.9); POTASSIUM 4.1 MMOL/L (3.5-5.1); SODIUM 142 MMOL/L (136-145)
--- NOTE | 2020-11-27 07:30 | NUR ---
NURSE NOTES: Received pt from JOEL Simental, pt is awake and confused, pt is in RA, no SOB or acute respiratory distress noted. pt has intact iv access RFA 22G SL. pt is on continues heart monitoring. No complain of pain at this moment. all needs attended, bed is locked and is in the lowest position, call light within easy reach. will continue to monitor.
[2020-11-27 08:00] VITALS: BP 150/100
[2020-11-27] MEDS: levETIRAcetam 500mg/5ml Liquid NG SCH (08:51)
[2020-11-27] MEDS: Aspirin Baby 81mg ORAL SCH (08:51)
[2020-11-27] MEDS: Heparin 5000 units/ml inj SUBQ SCH (08:54)
--- NOTE | 2020-11-27 09:30 | NUR ---
NURSE NOTES: Dr Weber visited pt and is aware about tachycardia up to 120, stated it is ok, NNO.
[2020-11-27] MEDS ORDERED: LEVETIRACE500 MG/51 PO (09:45)
--- NOTE | 2020-11-27 09:52 | Neurology Progress Note ---
Interim History Interim History ROS Limited/Unobtainable: Yes Events: confused on RA dc planning Objective Physical Exam Last Vital Signs Date Time Temp Pulse Resp B/P (MAP) Pulse Ox O2 Delivery O2 Flow Rate FiO2 11/27/20 08:52 109 150/100 11/27/20 08:00 97.7 20 99 11/27/20 08:00 Room Air Laboratory Tests Test 11/27/20 05:33 White Blood Count 11.6 K/UL (4.8-10.8) H Red Blood Count 4.99 M/UL (4.20-5.40) Hemoglobin 14.7 G/DL (12.0-16.0) Hematocrit 44.5 % (37.0-47.0) Mean Corpuscular Volume 89 FL (80-99) Mean Corpuscular Hemoglobin 29.4 PG (27.0-31.0) Mean Corpuscular Hemoglobin Concent 32.9 G/DL (32.0-36.0) Red Cell Distribution Width 13.6 % (11.6-14.8) Platelet Count 305 K/UL (150-450) Mean Platelet Volume 7.2 FL (6.5-10.1) Neutrophils (%) (Auto) 67.5 % (45.0-75.0) Lymphocytes (%) (Auto) 23.9 % (20.0-45.0) Monocytes (%) (Auto) 5.8 % (1.0-10.0) Eosinophils (%) (Auto) 1.7 % (0.0-3.0) Basophils (%) (Auto) 1.1 % (0.0-2.0) Sodium Level 142 MMOL/L (136-145) Potassium Level 4.1 MMOL/L (3.5-5.1) Chloride Level 105 MMOL/L (98-107) Carbon Dioxide Level 28 MMOL/L (21-32) Anion Gap 9 mmol/L (5-15) Blood Urea Nitrogen 11 mg/dL (7-18) Creatinine 0.8 MG/DL (0.55-1.30) Estimat Glomerular Filtration Rate > 60 mL/min (>60) Glucose Level 146 MG/DL (74-106) H Uric Acid 5.5 MG/DL (2.6-7.2) Calcium Level 9.7 MG/DL (8.5-10.1) Phosphorus Level 3.9 MG/DL (2.5-4.9) Magnesium Level 1.8 MG/DL (1.8-2.4) Total Bilirubin 0.3 MG/DL (0.2-1.0) Aspartate Amino Transf (AST/SGOT) 29 U/L (15-37) Alanine Aminotransferase (ALT/SGPT) 44 U/L (12-78) Alkaline Phosphatase 140 U/L (46-116) H Total Creatine Kinase 221 U/L (26-308) C-Reactive Protein, Quantitative 1.5 mg/dL (0.00-0.90) H Pro-B-Type Natriuretic Peptide 17 pg/mL (0-125) Total Protein 8.0 G/DL (6.4-8.2) Albumin 3.1 G/DL (3.4-5.0) L Globulin 4.9 g/dL Albumin/Globulin Ratio 0.6 (1.0-2.7) L Neurologic Exam Objective ROS unable to assess Vitals Reviewed General: Patient is lying down Neuro: Alert to self oriented to self does not remember what happened Comprehension intact. Language parameters intact slow to respond. Crainial nervies II-XI were tested. PEERLA No nystagmus. Tongue is midline. Facial is symmetric. hearing intact Motor: No invountary movements, bilateral Upper extremities 4/5 Lower extremities 4/5. Sensation: intact Gait not tested Postictal Impression/Recommendations Status: progressing Diagnostic Impression IMAGING: CT HEAD:Findings: No acute intracranial hemorrhage or edema, mass effect, nor midline shift. Normal madrid-white differentiation. There is abnormal configuration of the posterior lateral ventricles. These appear more normal anteriorly. Size of the ventricles and extra axial CSF spaces. Visualized orbits and sinuses are unremarkable. The mastoids are clear. The calvarium is intact. 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 Seizure, she is in post ictal phase responds slowly to questions --> reviewed [facility] records, continue keppra 500mg po bid and ativan, CT Head reviewed d/w JOEL Napoles 2. Methamphetamine abuse 3. Obesty 4. Schizophrenia 5. Hyupoxia --> Pulmo on board Lia Coburn NP Nov 27, 2020 09:52
--- NOTE | 2020-11-27 09:59 | NUR ---
Per Dr. Avitia, Pt. is not stable for discharge to [facility], Pt. needs to go to SNF short term to monitor and adjust seizure medication, and to monitor Seizure activity. Per Dr. Avitia, Route Sales Trainee is aware and will discuss with [facility].
--- NOTE | 2020-11-27 10:03 | Cardiac Electrophysiology PN ---
Assessment/Plan Assessment/Plan 1. HTN On Lopressor 25 po bid. EF 65%. PRN Clonidine 2. SVT better with Lopressor. S/P Adenosine 12 mg x2 and iv cardizem with no response 3. Hyperlipidemia on Lipitor 4. Seizure on Keppra and Ativan 5. Methamphetamine abuse 6. Obesity 7. Schizophrenia 8. Covid PCR negative DW RN DC to SNIF pending Subjective Subjective No CP or SOB on RA. In NAD. Covid PCR is negative Objective Last 24 Hour Vital Signs Date Time Temp Pulse Resp B/P (MAP) Pulse Ox O2 Delivery O2 Flow Rate FiO2 11/27/20 08:52 109 150/100 11/27/20 08:00 97.7 109 20 150/100 (117) 99 11/27/20 08:00 Room Air 11/27/20 07:53 113 11/27/20 04:00 Room Air 11/27/20 04:00 98.2 80 18 125/82 (96) 98 11/27/20 03:12 100 11/27/20 00:00 Room Air 11/27/20 00:00 98.4 101 18 152/87 (108) 98 11/26/20 23:15 93 11/26/20 23:04 152/98 11/26/20 21:21 98 143/97 11/26/20 21:00 Room Air 11/26/20 20:00 97.9 103 22 143/97 (112) 96 11/26/20 20:00 107 11/26/20 16:00 96.7 103 20 160/93 (115) 96 11/26/20 16:00 Room Air 11/26/20 16:00 100 11/26/20 14:24 168/109 11/26/20 12:00 99.3 110 20 168/109 (128) 98 11/26/20 12:00 92 11/26/20 12:00 Room Air Intake and Output 11/26/20 11/27/20 19:00 07:00 Intake Total 140 ml 120 ml Balance 140 ml 120 ml Intake Oral 140 ml 120 ml # Voids 4 Laboratory Tests Test 11/27/20 05:33 White Blood Count 11.6 K/UL (4.8-10.8) H Red Blood Count 4.99 M/UL (4.20-5.40) Hemoglobin 14.7 G/DL (12.0-16.0) Hematocrit 44.5 % (37.0-47.0) Mean Corpuscular Volume 89 FL (80-99) Mean Corpuscular Hemoglobin 29.4 PG (27.0-31.0) Mean Corpuscular Hemoglobin Concent 32.9 G/DL (32.0-36.0) Red Cell Distribution Width 13.6 % (11.6-14.8) Platelet Count 305 K/UL (150-450) Mean Platelet Volume 7.2 FL (6.5-10.1) Neutrophils (%) (Auto) 67.5 % (45.0-75.0) Lymphocytes (%) (Auto) 23.9 % (20.0-45.0) Monocytes (%) (Auto) 5.8 % (1.0-10.0) Eosinophils (%) (Auto) 1.7 % (0.0-3.0) Basophils (%) (Auto) 1.1 % (0.0-2.0) Sodium Level 142 MMOL/L (136-145) Potassium Level 4.1 MMOL/L (3.5-5.1) Chloride Level 105 MMOL/L (98-107) Carbon Dioxide Level 28 MMOL/L (21-32) Anion Gap 9 mmol/L (5-15) Blood Urea Nitrogen 11 mg/dL (7-18) Creatinine 0.8 MG/DL (0.55-1.30) Estimat Glomerular Filtration Rate > 60 mL/min (>60) Glucose Level 146 MG/DL (74-106) H Uric Acid 5.5 MG/DL (2.6-7.2) Calcium Level 9.7 MG/DL (8.5-10.1) Phosphorus Level 3.9 MG/DL (2.5-4.9) Magnesium Level 1.8 MG/DL (1.8-2.4) Total Bilirubin 0.3 MG/DL (0.2-1.0) Aspartate Amino Transf (AST/SGOT) 29 U/L (15-37) Alanine Aminotransferase (ALT/SGPT) 44 U/L (12-78) Alkaline Phosphatase 140 U/L (46-116) H Total Creatine Kinase 221 U/L (26-308) C-Reactive Protein, Quantitative 1.5 mg/dL (0.00-0.90) H Pro-B-Type Natriuretic Peptide 17 pg/mL (0-125) Total Protein 8.0 G/DL (6.4-8.2) Albumin 3.1 G/DL (3.4-5.0) L Globulin 4.9 g/dL Albumin/Globulin Ratio 0.6 (1.0-2.7) L Microbiology Date/Time Source Procedure Growth Status 11/25/20 15:31 Nasopharynx Coronavirus COVID-19 PCR ([facility]) - Final Complete Objective General Appearance: no acute distress HEENT: atraumatic Respiratory: lungs clear Cardiovascular: normal rate, regular rhythm Abdomen: soft, non tender Carl Weber MD Nov 27, 2020 10:03
--- NOTE | 2020-11-27 10:14 | Pulmonology Progress Note ---
Subjective ROS Limited/Unobtainable: Yes Interval Events: no seizure overnight Constitutional: Reports: other - doing better HEENT: Repors: no symptoms Respiratory: Reports: no symptoms Cardiovascular: Reports: no symptoms Gastrointestinal/Abdominal: Reports: no symptoms Allergies: Coded Allergies: PENICILLINS (Verified Allergy, Intermediate, SNEEZING, 03/26/19) Black Pepper (Verified Allergy, Mild, 11/23/20) AMOXICILLIN (Unverified Allergy, Unknown, 11/21/20) Objective Last 24 Hour Vital Signs Date Time Temp Pulse Resp B/P (MAP) Pulse Ox O2 Delivery O2 Flow Rate FiO2 11/27/20 08:52 109 150/100 11/27/20 08:00 97.7 109 20 150/100 (117) 99 11/27/20 08:00 Room Air 11/27/20 07:53 113 11/27/20 04:00 Room Air 11/27/20 04:00 98.2 80 18 125/82 (96) 98 11/27/20 03:12 100 11/27/20 00:00 Room Air 11/27/20 00:00 98.4 101 18 152/87 (108) 98 11/26/20 23:15 93 11/26/20 23:04 152/98 11/26/20 21:21 98 143/97 11/26/20 21:00 Room Air 11/26/20 20:00 97.9 103 22 143/97 (112) 96 11/26/20 20:00 107 11/26/20 16:00 96.7 103 20 160/93 (115) 96 11/26/20 16:00 Room Air 11/26/20 16:00 100 11/26/20 14:24 168/109 11/26/20 12:00 99.3 110 20 168/109 (128) 98 11/26/20 12:00 92 11/26/20 12:00 Room Air Intake and Output 11/26/20 11/27/20 19:00 07:00 Intake Total 140 ml 120 ml Balance 140 ml 120 ml Intake Oral 140 ml 120 ml # Voids 4 General Appearance: no acute distress HEENT: atraumatic Respiratory: lungs clear Cardiovascular: normal rate, regular rhythm Abdomen: soft, non tender Microbiology Date/Time Source Procedure Growth Status 11/25/20 15:31 Nasopharynx Coronavirus COVID-19 PCR ([facility]) - Final Complete Laboratory Tests 11/27/20 05:33: White Blood Count 11.6H, Red Blood Count 4.99, Hemoglobin 14.7, Hematocrit 44.5, Mean Corpuscular Volume 89, Mean Corpuscular Hemoglobin 29.4, Mean Corpuscular Hemoglobin Concent 32.9, Red Cell Distribution Width 13.6, Platelet Count 305, Mean Platelet Volume 7.2, Neutrophils (%) (Auto) 67.5, Lymphocytes (%) (Auto) 23.9, Monocytes (%) (Auto) 5.8, Eosinophils (%) (Auto) 1.7, Basophils (%) (Auto) 1.1, Sodium Level 142, Potassium Level 4.1, Chloride Level 105, Carbon Dioxide Level 28, Anion Gap 9, Blood Urea Nitrogen 11, Creatinine 0.8, Estimat Glomerular Filtration Rate > 60, Glucose Level 146H, Uric Acid 5.5, Calcium Level 9.7, Phosphorus Level 3.9, Magnesium Level 1.8, Total Bilirubin 0.3, Aspartate Amino Transf (AST/SGOT) 29, Alanine Aminotransferase (ALT/SGPT) 44, Alkaline Phosphatase 140H, Total Creatine Kinase 221, C-Reactive Protein, Quantitative 1.5H, Pro-B-Type Natriuretic Peptide 17, Total Protein 8.0, Albumin 3.1L, Globulin 4.9, Albumin/Globulin Ratio 0.6L Current Medications Medications (Trade) Dose Ordered Sig/Eleanor Route PRN Reason Start Time Stop Time Status Last Admin Dose Admin Acetaminophen (Tylenol) 500 mg Q4H PRN ORAL Mild Pain fever 100.2 11/21/20 15:30 12/21/20 15:29 11/21/20 21:06 Aspirin (ASA) 81 mg DAILY ORAL 11/22/20 09:00 01/06/21 08:59 11/27/20 08:51 Atorvastatin Calcium (Lipitor) 20 mg BEDTIME ORAL 11/21/20 21:00 02/19/21 20:59 11/26/20 21:20 Barium Sulfate (Varibar Honey) 250 ml NOW PRN MC RAD 11/24/20 10:30 11/27/20 10:24 Barium Sulfate (Varibar [place]) 240 ml NOW PRN MC RAD 11/24/20 10:30 11/27/20 10:24 Barium Sulfate (Varibar Pudding) 230 ml NOW PRN MC RAD 11/24/20 10:30 11/27/20 10:24 Barium Sulfate (Varibar Thin Liquid powder) 148 gm NOW PRN MC RAD 11/24/20 10:30 11/27/20 10:24 Clonidine HCl (Catapres Tab) 0.1 mg EVERY 8 HOURS ORAL 11/26/20 14:00 02/24/21 13:59 11/26/20 23:04 Clonidine HCl (Catapres Tab) 0.1 mg Q2H PRN ORAL SBP > 170mmHg 11/25/20 10:45 02/23/21 10:44 Heparin Sodium (Porcine) (Heparin 5000 units/ml) 5,000 units EVERY 12 HOURS SUBQ 11/22/20 21:00 01/06/21 20:59 11/27/20 08:54 Levetiracetam (Keppra) 750 mg Q12HR NG 11/27/20 21:00 01/10/21 20:59 Lorazepam (Ativan 2mg/ml 1ml) 2 mg Q6H PRN IV For Anxiety 11/21/20 19:45 11/28/20 19:44 11/25/20 20:34 Metoprolol Tartrate (Lopressor) 25 mg Q12HR ORAL 11/21/20 21:00 02/19/21 20:59 11/27/20 08:52 Nitrofurantoin (Macrobid) 100 mg EVERY 12 HOURS ORAL 11/25/20 21:00 11/27/20 23:59 11/27/20 08:52 Assessment/Plan Assessment/Plan 1. Hypertension - cardio following 2. Tachycardia -cardio following - venous duplex US negative for DVT 3. Sepsis/Leukocytosis - ID following - on Abx 4. Elevated troponin -Serial troponin; troponin trending down -Cardio following 5. Risk for aspiration secondary to seizure -Monitor for aspiration risk due to altered mental status - fu CXR if indicated -s/p empiric antibiotics 6. Monitor for hypoxemia 7. Elevated D-dimer - venous duplex US negative for DVT - on heparin subcu BID - on SCD 8. COVID-19 PCR negative Medically stable for discharge to SNF from pulmonary standpoint The care for this patient was discussed with my supervising physician. Time spent for this case was approximately 31 minutes. Rich Sarabia Nov 27, 2020 10:13
--- NOTE | 2020-11-27 10:16 | NUR ---
NURSE NOTES: Dr Callie [place] visited pt and is aware about WBC 11.6, NNO, and stated pt is clear from ID to D/C.
--- NOTE | 2020-11-27 11:00 | Infectious Diseases Prog Note ---
Assessment/Plan Assessment/Plan A; SIRS,/ Sepsis Breakthrough seizure Pyuria, ? UTI Tachycardia Elevated troponin Developmental delay DM P: Discontinue Nitrofurantoin Patient is clear for discharge Subjective ROS Limited/Unobtainable: Yes Allergies: Coded Allergies: PENICILLINS (Verified Allergy, Intermediate, SNEEZING, 03/26/19) Black Pepper (Verified Allergy, Mild, 11/23/20) AMOXICILLIN (Unverified Allergy, Unknown, 11/21/20) Objective Last 24 Hour Vital Signs Date Time Temp Pulse Resp B/P (MAP) Pulse Ox O2 Delivery O2 Flow Rate FiO2 11/27/20 08:52 109 150/100 11/27/20 08:00 97.7 109 20 150/100 (117) 99 11/27/20 08:00 Room Air 11/27/20 07:53 113 11/27/20 04:00 Room Air 11/27/20 04:00 98.2 80 18 125/82 (96) 98 11/27/20 03:12 100 11/27/20 00:00 Room Air 11/27/20 00:00 98.4 101 18 152/87 (108) 98 11/26/20 23:15 93 11/26/20 23:04 152/98 11/26/20 21:21 98 143/97 11/26/20 21:00 Room Air 11/26/20 20:00 97.9 103 22 143/97 (112) 96 11/26/20 20:00 107 11/26/20 16:00 96.7 103 20 160/93 (115) 96 11/26/20 16:00 Room Air 11/26/20 16:00 100 11/26/20 14:24 168/109 11/26/20 12:00 99.3 110 20 168/109 (128) 98 11/26/20 12:00 92 11/26/20 12:00 Room Air Height (Feet): 5 Height (Inches): 8.00 Weight (Pounds): 160 General Appearance: no acute distress HEENT: mucous membranes moist Respiratory/Chest: lungs clear Cardiovascular: tachycardia Abdomen: soft, non tender Extremities: no edema Neurologic/Psychiatric: other - sleeping Microbiology Date/Time Source Procedure Growth Status 11/25/20 15:31 Nasopharynx Coronavirus COVID-19 PCR ([facility]) - Final Complete Laboratory Tests Test 11/27/20 05:33 White Blood Count 11.6 K/UL (4.8-10.8) H Red Blood Count 4.99 M/UL (4.20-5.40) Hemoglobin 14.7 G/DL (12.0-16.0) Hematocrit 44.5 % (37.0-47.0) Mean Corpuscular Volume 89 FL (80-99) Mean Corpuscular Hemoglobin 29.4 PG (27.0-31.0) Mean Corpuscular Hemoglobin Concent 32.9 G/DL (32.0-36.0) Red Cell Distribution Width 13.6 % (11.6-14.8) Platelet Count 305 K/UL (150-450) Mean Platelet Volume 7.2 FL (6.5-10.1) Neutrophils (%) (Auto) 67.5 % (45.0-75.0) Lymphocytes (%) (Auto) 23.9 % (20.0-45.0) Monocytes (%) (Auto) 5.8 % (1.0-10.0) Eosinophils (%) (Auto) 1.7 % (0.0-3.0) Basophils (%) (Auto) 1.1 % (0.0-2.0) Sodium Level 142 MMOL/L (136-145) Potassium Level 4.1 MMOL/L (3.5-5.1) Chloride Level 105 MMOL/L (98-107) Carbon Dioxide Level 28 MMOL/L (21-32) Anion Gap 9 mmol/L (5-15) Blood Urea Nitrogen 11 mg/dL (7-18) Creatinine 0.8 MG/DL (0.55-1.30) Estimat Glomerular Filtration Rate > 60 mL/min (>60) Glucose Level 146 MG/DL (74-106) H Uric Acid 5.5 MG/DL (2.6-7.2) Calcium Level 9.7 MG/DL (8.5-10.1) Phosphorus Level 3.9 MG/DL (2.5-4.9) Magnesium Level 1.8 MG/DL (1.8-2.4) Total Bilirubin 0.3 MG/DL (0.2-1.0) Aspartate Amino Transf (AST/SGOT) 29 U/L (15-37) Alanine Aminotransferase (ALT/SGPT) 44 U/L (12-78) Alkaline Phosphatase 140 U/L (46-116) H Total Creatine Kinase 221 U/L (26-308) C-Reactive Protein, Quantitative 1.5 mg/dL (0.00-0.90) H Pro-B-Type Natriuretic Peptide 17 pg/mL (0-125) Total Protein 8.0 G/DL (6.4-8.2) Albumin 3.1 G/DL (3.4-5.0) L Globulin 4.9 g/dL Albumin/Globulin Ratio 0.6 (1.0-2.7) L Current Medications Medications (Trade) Dose Ordered Sig/Eleanor Route PRN Reason Start Time Stop Time Status Last Admin Dose Admin Acetaminophen (Tylenol) 500 mg Q4H PRN ORAL Mild Pain fever 100.2 11/21/20 15:30 12/21/20 15:29 11/21/20 21:06 Aspirin (ASA) 81 mg DAILY ORAL 11/22/20 09:00 01/06/21 08:59 11/27/20 08:51 Atorvastatin Calcium (Lipitor) 20 mg BEDTIME ORAL 11/21/20 21:00 02/19/21 20:59 11/26/20 21:20 Clonidine HCl (Catapres Tab) 0.1 mg EVERY 8 HOURS ORAL 11/26/20 14:00 02/24/21 13:59 11/26/20 23:04 Clonidine HCl (Catapres Tab) 0.1 mg Q2H PRN ORAL SBP > 170mmHg 11/25/20 10:45 02/23/21 10:44 Heparin Sodium (Porcine) (Heparin 5000 units/ml) 5,000 units EVERY 12 HOURS SUBQ 11/22/20 21:00 01/06/21 20:59 11/27/20 08:54 Levetiracetam (Keppra) 750 mg Q12HR NG 11/27/20 21:00 01/10/21 20:59 Lorazepam (Ativan 2mg/ml 1ml) 2 mg Q6H PRN IV For Anxiety 11/21/20 19:45 11/28/20 19:44 11/25/20 20:34 Metoprolol Tartrate (Lopressor) 25 mg Q12HR ORAL 11/21/20 21:00 02/19/21 20:59 11/27/20 08:52 Nitrofurantoin (Macrobid) 100 mg EVERY 12 HOURS ORAL 11/25/20 21:00 11/27/20 23:59 11/27/20 08:52 Bryan Burrows MD Nov 27, 2020 11:00
--- NOTE | 2020-11-27 11:37 | Nephrology Progress Note ---
Assessment/Plan Problem List: (1) Electrolyte imbalance (2) DMII (diabetes mellitus, type 2) (3) Status epilepticus (4) Elevated CK Assessment Hypomagnesium Hyponatremia Seizure disorder, status epilepticus SVT History of hypertension Tachycardia Developmental delay Diabetes mellitus Plan November 27: Labs reviewed. Renal parameters and electrolytes are within normal limit. Heart rate still elevated. Lopressor dose increased. CPK level now within normal limits. November 26: No labs drawn today. Blood pressure out of control. Will start clonidine 0.1 mg every 8 hours with parameters. Will check lab tomorrow. November 25: Labs reviewed. IV fluids stopped. CPK lowering. Continue p.o. liquid intake. November 24: Labs reviewed. Abnormal electrolytes now corrected. Continue per current management. Hemoglobin A1c elevated. CPK slightly elevated. Increase IV fluid. Monitor CPK. Previously: IV magnesium sulfate 4 g Check: Urine and serum osmolality, uric acid, TSH, lipid panel as part of hyponatremia work-up Stop hypotonic solution and start isotonic solution Per orders Subjective ROS Limited/Unobtainable: No Constitutional: Reports: malaise, weakness Objective Objective Last 24 Hour Vital Signs Date Time Temp Pulse Resp B/P (MAP) Pulse Ox O2 Delivery O2 Flow Rate FiO2 11/27/20 08:52 109 150/100 11/27/20 08:00 97.7 109 20 150/100 (117) 99 11/27/20 08:00 Room Air 11/27/20 07:53 113 11/27/20 04:00 Room Air 11/27/20 04:00 98.2 80 18 125/82 (96) 98 11/27/20 03:12 100 11/27/20 00:00 Room Air 11/27/20 00:00 98.4 101 18 152/87 (108) 98 11/26/20 23:15 93 11/26/20 23:04 152/98 11/26/20 21:21 98 143/97 11/26/20 21:00 Room Air 11/26/20 20:00 97.9 103 22 143/97 (112) 96 11/26/20 20:00 107 11/26/20 16:00 96.7 103 20 160/93 (115) 96 11/26/20 16:00 Room Air 11/26/20 16:00 100 11/26/20 14:24 168/109 11/26/20 12:00 99.3 110 20 168/109 (128) 98 11/26/20 12:00 92 11/26/20 12:00 Room Air Intake and Output 11/26/20 11/27/20 19:00 07:00 Intake Total 140 ml 120 ml Balance 140 ml 120 ml Intake Oral 140 ml 120 ml # Voids 4 Current Medications Medications (Trade) Dose Ordered Sig/Eleanor Route PRN Reason Start Time Stop Time Status Last Admin Dose Admin Acetaminophen (Tylenol) 500 mg Q4H PRN ORAL Mild Pain fever 100.2 11/21/20 15:30 12/21/20 15:29 11/21/20 21:06 Aspirin (ASA) 81 mg DAILY ORAL 11/22/20 09:00 01/06/21 08:59 11/27/20 08:51 Atorvastatin Calcium (Lipitor) 20 mg BEDTIME ORAL 11/21/20 21:00 02/19/21 20:59 11/26/20 21:20 Clonidine HCl (Catapres Tab) 0.1 mg EVERY 8 HOURS ORAL 11/26/20 14:00 02/24/21 13:59 11/26/20 23:04 Clonidine HCl (Catapres Tab) 0.1 mg Q2H PRN ORAL SBP > 170mmHg 11/25/20 10:45 02/23/21 10:44 Heparin Sodium (Porcine) (Heparin 5000 units/ml) 5,000 units EVERY 12 HOURS SUBQ 11/22/20 21:00 01/06/21 20:59 11/27/20 08:54 Levetiracetam (Keppra) 750 mg Q12HR NG 11/27/20 21:00 01/10/21 20:59 Lorazepam (Ativan 2mg/ml 1ml) 2 mg Q6H PRN IV For Anxiety 11/21/20 19:45 11/28/20 19:44 11/25/20 20:34 Metoprolol Tartrate (Lopressor) 25 mg Q12HR ORAL 11/21/20 21:00 02/19/21 20:59 11/27/20 08:52 Laboratory Tests 11/27/20 05:33: White Blood Count 11.6H, Red Blood Count 4.99, Hemoglobin 14.7, Hematocrit 44.5, Mean Corpuscular Volume 89, Mean Corpuscular Hemoglobin 29.4, Mean Corpuscular Hemoglobin Concent 32.9, Red Cell Distribution Width 13.6, Platelet Count 305, Mean Platelet Volume 7.2, Neutrophils (%) (Auto) 67.5, Lymphocytes (%) (Auto) 23.9, Monocytes (%) (Auto) 5.8, Eosinophils (%) (Auto) 1.7, Basophils (%) (Auto) 1.1, Sodium Level 142, Potassium Level 4.1, Chloride Level 105, Carbon Dioxide Level 28, Anion Gap 9, Blood Urea Nitrogen 11, Creatinine 0.8, Estimat Glomerular Filtration Rate > 60, Glucose Level 146H, Uric Acid 5.5, Calcium Level 9.7, Phosphorus Level 3.9, Magnesium Level 1.8, Total Bilirubin 0.3, Asp artate Amino Transf (AST/SGOT) 29, Alanine Aminotransferase (ALT/SGPT) 44, Alkaline Phosphatase 140H, Total Creatine Kinase 221, C-Reactive Protein, Quantitative 1.5H, Pro-B-Type Natriuretic Peptide 17, Total Protein 8.0, Albumin 3.1L, Globulin 4.9, Albumin/Globulin Ratio 0.6L Height (Feet): 5 Height (Inches): 8.00 Weight (Pounds): 160 General Appearance: no apparent distress Cardiovascular: tachycardia Respiratory/Chest: decreased breath sounds Abdomen: distended Kerwin Li MD Nov 27, 2020 11:37
[2020-11-27 12:00] VITALS: BP 128/81
[2020-11-27] MEDS ORDERED: D5NS 1000ml IV ONE ×2 (13:54→19:59)
[2020-11-27 16:00] VITALS: BP 143/76
--- NOTE | 2020-11-27 16:21 | NUR ---
BROADCAST CHIEF ENGINEER NOTES SPOKE WITH ADRIANE FROM [facility], PT ACCEPTED TO ROOM 30 BED A. NURSE TO CALL REPORT TO [phone]. [facility] TO TRANSPORT WITH AN ETA 1800. [facility] NURSE MAXIMO MADE AWARE AND IS IN AGREEMENT WITH [facility].
--- NOTE | 2020-11-27 17:04 | NUR ---
NURSE NOTES: pt has discharge order, all D/C assessments and instructions done and pt verbally confirmed to understand all. pt is stable, V/S stable, no belongings, report given to sharepoint designer developer Chelsea, endorsed plan of care. skin is intact. [facility] Brock is aware about discharging. waiting for ambulance to pick pt up. will continue to close monitoring.
--- NOTE | 2020-11-27 18:21 | NUR ---
NURSE NOTES: [facility] and they will be here 1999, RYLAND Alcazar is aware. will continue to monitor.
--- NOTE | 2020-11-27 19:26 | Psychiatric Progress Note ---
Psychiatry Progress Note Psychiatry Progress Note Medications Current Medications Medications (Trade) Dose Ordered Sig/Eleanor Route PRN Reason Start Time Stop Time Status Last Admin Dose Admin Acetaminophen (Tylenol) 500 mg Q4H PRN ORAL Mild Pain fever 100.2 11/21/20 15:30 12/21/20 15:29 11/21/20 21:06 Aspirin (ASA) 81 mg DAILY ORAL 11/22/20 09:00 01/06/21 08:59 11/27/20 08:51 Atorvastatin Calcium (Lipitor) 20 mg BEDTIME ORAL 11/21/20 21:00 02/19/21 20:59 11/26/20 21:20 Clonidine HCl (Catapres Tab) 0.1 mg EVERY 8 HOURS ORAL 11/26/20 14:00 02/24/21 13:59 11/26/20 23:04 Clonidine HCl (Catapres Tab) 0.1 mg Q2H PRN ORAL SBP > 170mmHg 11/25/20 10:45 02/23/21 10:44 Heparin Sodium (Porcine) (Heparin 5000 units/ml) 5,000 units EVERY 12 HOURS SUBQ 11/22/20 21:00 01/06/21 20:59 11/27/20 08:54 Levetiracetam (Keppra) 750 mg Q12HR NG 11/27/20 21:00 01/10/21 20:59 Lorazepam (Ativan 2mg/ml 1ml) 2 mg Q6H PRN IV For Anxiety 11/21/20 19:45 11/28/20 19:44 11/25/20 20:34 Metoprolol Tartrate (Lopressor) 50 mg Q12HR ORAL 11/27/20 21:00 02/19/21 20:59 Neurological/Psychiatric: Reports: anxiety, depressed, emotional problems Allergies: Coded Allergies: PENICILLINS (Verified Allergy, Intermediate, SNEEZING, 03/26/19) Black Pepper (Verified Allergy, Mild, 11/23/20) AMOXICILLIN (Unverified Allergy, Unknown, 11/21/20) Objective Data Height (Feet): 5 Height (Inches): 8.00 Weight (Pounds): 160 General Appearance: no apparent distress Additional Comments: alert and oriented times self, place, and situation. Mood is anxious. Affect is blunted. Thought process is concrete. Thought content, no suicidal or homicidal ideation. Cognition is intact. Insight and judgment are fair. Assessment/Plan Status: progressing Assessment/Plan: ASSESSMENT AND PLAN: Schizophrenia. 1. Continue to follow and readjust the medications. Mary Humphrey MD Nov 27, 2020 19:26
--- NOTE | 2020-11-27 19:29 | NUR ---
NURSE HAND-OFF REPORT: Important Events on Shift:pt is discharging. Patient Status: Diet: Pending Orders: Pending Results/Labs: Pending MD notification: Latest Vital Signs: Temperature 97.9 , Pulse 106 , B/P 143 /76 , Respiratory Rate 19 , O2 SAT 98 , Room Air, O2 Flow Rate . Vital Sign Comment: EKG Rhythm: Sinus Rhythm Rhythm change?: N MD Notified?: N - MD Response: Latest Cervantes Fall Score: 85 Fall Risk: High Risk Safety Measures: Call light Within Reach, Bed Alarm Zone 2, Side Rails Side Rails x3, Bed position Low and Locked. Fall Precautions: Yellow Socks Door Sign Patient Fall Education Report given to . pt is awake and stable, no stress noted. endorsed plan of care.endorsed ambulance will be here 1999.
--- NOTE | 2020-11-27 19:30 | NUR ---
NURSE NOTES: Important Events on Shift: Received report from Roman Ng RN. Pt in stable condition throughout shift. Pt to DC to [facility]. Per report, all DC paperwork and follow-up completed. [facility]waiting [facility]. Pt denies pain, no signs or symptoms of distress noted at this time. Will continue plan of care and DC plan. Will monitor closely. Patient Status: FC Diet: Cardiac mech soft chopped, crush meds. Pending Orders: DC to SNF Pending Results/Labs: none Pending MD notification: none Latest Vital Signs: Temperature 97.9 , Pulse 106 , B/P 143 /76 , Respiratory Rate 19 , O2 SAT 98 , Room Air, O2 Flow Rate . Vital Sign Comment: EKG Rhythm: Sinus Rhythm Rhythm change?: N MD Notified?: N - MD Response: Latest Cervantes Fall Score: 85 Fall Risk: High Risk Safety Measures: Call light Within Reach, Bed Alarm Zone 2, Side Rails Side Rails x3, Bed position Low and Locked. Fall Precautions: YES Yellow Socks Seizure precautions YES Door Sign Patient Fall Education YES
--- NOTE | 2020-11-27 20:00 | NUR ---
DISCHARGE: NURSE NOTES: Important Events on Shift: Discharged to [facility] ambulance, report given to SHABNAM Nazario. Pt to transfer to [facility]. Patient Status: FC Diet: Cardiac Mech chopped soft Latest Vital Signs: Temperature 97.9 , Pulse 106 , B/P 143 /76 , Respiratory Rate 19 , O2 SAT 98 , Room Air, O2 Flow Rate . Latest Cervantes Fall Score: 85 Fall Risk: High Risk Safety Measures: Call light Within Reach, Bed Alarm Zone 2, Side Rails Side Rails x3, Bed position Low and Locked. Fall Precautions: Yellow Socks Door Sign Patient Fall Education
--- NOTE | 2020-11-27 20:39 | General Progress Note ---
Subjective ROS Limited/Unobtainable: Yes Allergies: Coded Allergies: PENICILLINS (Verified Allergy, Intermediate, SNEEZING, 03/26/19) Black Pepper (Verified Allergy, Mild, 11/23/20) AMOXICILLIN (Unverified Allergy, Unknown, 11/21/20) Objective Last 24 Hour Vital Signs Date Time Temp Pulse Resp B/P (MAP) Pulse Ox O2 Delivery O2 Flow Rate FiO2 11/27/20 16:00 97.9 106 19 143/76 (98) 98 11/27/20 16:00 Room Air 11/27/20 15:39 100 11/27/20 14:00 128/81 11/27/20 12:00 98.4 93 18 128/81 (97) 97 11/27/20 12:00 Room Air 11/27/20 11:29 95 11/27/20 08:52 109 150/100 11/27/20 08:00 97.7 109 20 150/100 (117) 99 11/27/20 08:00 Room Air 11/27/20 07:53 113 11/27/20 04:00 Room Air 11/27/20 04:00 98.2 80 18 125/82 (96) 98 11/27/20 03:12 100 11/27/20 00:00 Room Air 11/27/20 00:00 98.4 101 18 152/87 (108) 98 11/26/20 23:15 93 11/26/20 23:04 152/98 11/26/20 21:21 98 143/97 11/26/20 21:00 Room Air Intake and Output 11/26/20 11/27/20 19:00 07:00 Intake Total 140 ml 120 ml Balance 140 ml 120 ml Intake Oral 140 ml 120 ml # Voids 4 Laboratory Tests 11/27/20 05:33: White Blood Count 11.6H, Red Blood Count 4.99, Hemoglobin 14.7, Hematocrit 44.5, Mean Corpuscular Volume 89, Mean Corpuscular Hemoglobin 29.4, Mean Corpuscular Hemoglobin Concent 32.9, Red Cell Distribution Width 13.6, Platelet Count 305, Mean Platelet Volume 7.2, Neutrophils (%) (Auto) 67.5, Lymphocytes (%) (Auto) 23.9, Monocytes (%) (Auto) 5.8, Eosinophils (%) (Auto) 1.7, Basophils (%) (Auto) 1.1, Sodium Level 142, Potassium Level 4.1, Chloride Level 105, Carbon Dioxide Level 28, Anion Gap 9, Blood Urea Nitrogen 11, Creatinine 0.8, Estimat Glomer ular Filtration Rate > 60, Glucose Level 146H, Uric Acid 5.5, Calcium Level 9.7, Phosphorus Level 3.9, Magnesium Level 1.8, Total Bilirubin 0.3, Aspartate Amino Transf (AST/SGOT) 29, Alanine Aminotransferase (ALT/SGPT) 44, Alkaline Phosphatase 140H, Total Creatine Kinase 221, C-Reactive Protein, Quantitative 1.5H, Pro-B-Type Natriuretic Peptide 17, Total Protein 8.0, Albumin 3.1L, Globulin 4.9, Albumin/Globulin Ratio 0.6L Height (Feet): 5 Height (Inches): 8.00 Weight (Pounds): 160 Assessment/Plan Problem List: (1) Seizure disorder ICD Codes: G40.909 - Epilepsy, unspecified, not intractable, without status epilepticus SNOMED: 012841183 (2) SVT (supraventricular tachycardia) ICD Codes: I47.1 - Supraventricular tachycardia SNOMED: 3107742 (3) Status epilepticus ICD Codes: G40.901 - Epilepsy, unspecified, not intractable, with status epilepticus SNOMED: 917684683 Status: progressing Assessment/Plan: refractory seizure needs to go to snf for close monitoring for recurrent seizure placement issue regional center decision Israel Avitia MD Nov 27, 2020 20:39
[2020-11-27] MEDS ORDERED: levETIRAcetam 500mg/5ml Liquid NG SCH (21:00)
[2020-11-27] MEDS ORDERED: Metoprolol Tartrate 50mg tab ORAL SCH (21:00)
--- NOTE | 2020-12-01 13:11 | Discharge Summary ---
Discharge Summary Discharge Summary _ Date of admission: 11/21/2020 Date of discharge: 11/27/[address] Avitia History of Present Illness and Brief Hospital Course Ms. Michele is a 35-year-old female with past medical history of seizure and methamphetamine use, who was sent to ED from SNF after a witnessed generalized tonic-clonic seizure. Each seizure episode was reported to be lasting several minutes while she was laying in bed. Patient arrived nonverbal with eyes deviated to the right and rhythmic beating of the right upper extremity. CT of head was negative for acute intracranial bleed or mass-effect. She was immediately given Keppra. She was also given Dilantin and Ativan. EKG showed a narrow complex regular tachycardia in the 150s consistent with SVT. She was given adenosine with no effect. Cardizem was then given which improved her heart rate. She was admitted to the hospital for further management. A chest x-ray was ordered for evaluation of possible aspiration pneumonia. Chest x-ray was negative for acute cardiopulmonary disease. Her initial urinalysis showed pyuria and was concerning for UTI. She was started on Levaquin which was later switched to nitrofurantoin. Her urine culture revealed Streptococcus viridans. Her nitrofurantoin was discontinued before discharge. Throughout her hospitalization, she was closely monitored for seizure activity, and risk of aspiration. Patient was seizure-free after admission. She was medically stable for discharge to SNF on 11/27/2020. Consultants: Cardiology Dr. Weber Psychiatry Dr. Hupmhrey Infectious disease Dr. Burrows Nephrology Dr. Balderas Pulmonology Dr. Garrison Neurology Lia Coburn NP Discharge Condition Improved and stable Final diagnoses Hypertension SVT Hyperlipidemia Seizure Methamphetamine abuse Obesity Schizophrenia Sepsis/SIRS Pyuria Strep viridans UTI Elevated troponin Diabetes mellitus Elevated CK Electrolyte imbalance Hypoxia Status epilepticus I have been assigned to dictate discharge summary for this account. Rich Sarabia Dec 01, 2020 13:11
== END 2020-11-27 20:00 | DRG 872 ==
LOC: EDBD 09:27 → EMR 09:56 → EDBEDREQ 10:23 → 2W 11:15 → EDBEDREQ 12:58 → 2W 15:00 → 2E 11-24 17:21
DX: A41.9 Sepsis, unspecified organism (principal); I47.1 Supraventricular tachycardia; E87.1 Hypo-osmolality and hyponatremia; N39.0 Urinary tract infection, site not specified; G40.901 Epilepsy, unspecified, not intractable, with status epilepticus; F15.10 Other stimulant abuse, uncomplicated; I10 Essential (primary) hypertension; Z88.1 Allergy status to other antibiotic agents; Z88.0 Allergy status to penicillin; F29 Unspecified psychosis not due to a substance or known physiological condition; B95.4 Other streptococcus as the cause of diseases classified elsewhere; R74.8 Abnormal levels of other serum enzymes; E66.9 Obesity, unspecified; R09.02 Hypoxemia; E87.8 Other disorders of electrolyte and fluid balance, not elsewhere classified; F79 Unspecified intellectual disabilities; Z59.0 Homelessness; E11.9 Type 2 diabetes mellitus without complications
CPT/HCPCS: 36415; 70450; 71045; 80053; 80061; 80307; 81003; 81025; 82550; 83036; 83735; 83880; 83930; 83935; 84100; 84300; 84443; 84484; 84550; 85007; 85025; 85379; 85610; 85730; 86140; 87081; 87086; 93005; 93306; 93970; 96361; 96365; 96375; 96376; 99291; G0480; J1165; J7030